=== PATIENT | female | born 1965 | race American Indian/Alaskan Native ===

== ENCOUNTER 2016-08-04 18:22 | Inpatient (IN) | payer MEDICAID ==
[2016-08-04] MEDS ORDERED: Piperacill/Tazo 4.5gm in NS 4.5 GM/100 ML BAG IVPB STA (19:05)
[2016-08-04] MEDS ORDERED: Vancomycin 1gm in NS 250ml 1 GM/250 ML BAG IVPB STA (19:05)
--- NOTE | 2016-08-04 19:05 | ED PDOC ---
Arrival/HPI - General Time Seen by Provider: 08/04/16 18:42 Historian: Patient - History of Present Illness Narrative History of Present Illness (Text): 08/04/16 18:54 A 51 year old female, whose past medical history includes chronic bilateral feet wounds, presents to the emergency department complaining of a subjective fever for the past 5 days. Patient notes a headache and 1 episodes of diarrhea 3 days ago. She states she has some nausea but denies any vomiting, chest pain, shortness of breath, or other complaints at this time. PMD: Dr. Triplett Bulk Clerk: Dr. Helton Time/Duration: Other Symptom Onset: Sudden Symptom Course: Unchanged Quality: Other Activities at Onset: Rest Context: Home Past Medical History - Provider Review Nursing Documentation Reviewed: Yes - Infectious Disease Hx of Infectious Diseases: None - Cardiac Hx Cardiac Disorders: Yes Hx Hypertension: Yes - Pulmonary Hx Respiratory Disorders: No - Neurological Hx Neurological Disorder: Yes HX Cerebrovascular Accident: Yes - HEENT Hx HEENT Disorder: No - Renal Hx Renal Disorder: Yes Other/Comment: Renal insufficiency - Endocrine/Metabolic Hx Endocrine Disorders: Yes Hx Diabetes Mellitus Type 2: Yes - Hematological/Oncological Hx Blood Transfusions: Yes Hx Blood Transfusion Reaction: No - Integumentary Hx Dermatological Disorder: Yes Other/Comment: Cellulitis - Musculoskeletal/Rheumatological Hx Musculoskeletal Disorders: Yes Hx Falls: No Hx Osteomyelitis: Yes Hx Unsteady Gait: Yes (Splint noted to left foot and lower extremity (hardshoe)) - Gastrointestinal Hx Gastrointestinal Disorders: No - Genitourinary/Gynecological Hx Genitourinary Disorders: No - Psychiatric Hx Psychophysiologic Disorder: No Hx Substance Use: No - Surgical History Hx Cholecystectomy: Yes - Anesthesia Hx Anesthesia Reactions: No Hx Malignant Hyperthermia: No Family/Social History - Physician Review Nursing Documentation Reviewed: Yes Family/Social History: Unknown Family HX Smoking Status: Heavy Smoker > 10 Cigarettes Daily Hx Alcohol Use: No Hx Substance Use: No Allergies/Home Meds Allergies/Adverse Reactions: Allergies dominique Allergy (Intermediate, Verified 01/22/16 11:44) RASH peanut Allergy (Unknown, Verified 01/22/16 11:44) RASH acetaminophen [From Vicodin] Allergy (Verified 01/22/16 11:44) RASH almond Allergy (Verified 01/22/16 11:44) ANAPHYLAXIS hydrocodone bitartrate [From Vicodin] Allergy (Verified 01/22/16 11:44) RASH hydromorphone HCl [From Dilaudid] Allergy (Verified 01/22/16 11:44) RASH linezolid Allergy (Verified 01/22/16 11:44) RASH morphine Allergy (Verified 01/22/16 11:44) RASH Penicillins Allergy (Verified 08/04/16 20:21) ANAPHYLAXIS seafood Allergy (Uncoded 01/22/16 11:44) ANAPHYLAXIS Home Medications: Home Meds Medication Instructions Recorded Confirmed ALPRAZolam [Xanax] 2 mg PO PRN PRN 01/21/16 08/04/16 Ascorbic Acid [Vitamin C 500 mg 500 mg PO BID 01/21/16 08/04/16 Tab] Atorvastatin [Lipitor] 10 mg PO DIN 01/21/16 08/04/16 DiphenhydrAMINE [Benadryl] 25 mg PO Q6 PRN 01/21/16 08/04/16 Epoetin Thomas [Procrit] 4,000 unit IJ TTS 01/21/16 08/04/16 Escitalopram [Lexapro] 10 mg PO DAILY 01/21/16 08/04/16 Gabapentin [Neurontin] 300 mg PO TID 01/21/16 08/04/16 Insulin Aspart, Recombinant 3 unit SQ TID 01/21/16 08/04/16 [Novolog] Insulin Detemir [Levemir] 10 unit SC DAILY 01/21/16 08/04/16 Oxycodone HCl [Roxicodone] 15 mg PO Q4 PRN 01/21/16 08/04/16 Rivaroxaban [Xarelto] 15 mg PO DAILY 01/21/16 08/04/16 Senna [Senokot Syrup] 1 tab BID 01/21/16 08/04/16 Simethicone [Mylicon Chew Tab] 80 mg PO BID 01/21/16 08/04/16 Zinc Sulfate [Orazinc] 220 mg PO DAILY 01/21/16 08/04/16 Review of Systems - Physician Review All systems were reviewed & negative as marked: Yes - Review of Systems Constitutional: Fevers Respiratory: absent: SOB Cardiovascular: absent: Chest Pain Neurological: Headache Physical Exam Vital Signs Reviewed: Yes Vital Signs Temp Pulse Resp BP Pulse Ox 08/05/16 21:32 115 H 18 126/71 97 08/05/16 20:12 113 H 18 133/75 99 08/05/16 10:18 153/97 H 08/05/16 06:00 96 H 18 118/62 99 08/05/16 02:00 99.0 F 98 H 18 121/62 100 08/04/16 20:56 107 H 20 106/51 L 99 08/04/16 19:15 99.9 F H 111 H 18 111/58 L 100 08/04/16 18:47 100.8 F H 112 H 20 152/69 H 99 Temperature: Febrile Blood Pressure: Hypertensive Pulse: Tachycardic Respiratory Rate: Normal Appearance: Positive for: Non-Toxic, Comfortable, Ill-Appearing Pain Distress: None Mental Status: Positive for: Alert and Oriented X 3 - Systems Exam Head: Present: Atraumatic, Normocephalic Pupils: Present: PERRL Extroacular Muscles: Present: EOMI Conjunctiva: Present: Normal Mouth: Present: Moist Mucous Membranes Neck: Present: Normal Range of Motion Respiratory/Chest: Present: Clear to Auscultation, Good Air Exchange. No: Respiratory Distress, Accessory Muscle Use Cardiovascular: Present: Regular Rate and Rhythm, Normal S1, S2. No: Murmurs Abdomen: Present: Normal Bowel Sounds. No: Tenderness, Distention, Peritoneal Signs Back: Present: Normal Inspection Upper Extremity: Present: Normal Inspection. No: Cyanosis, Edema Lower Extremity: Present: Normal Inspection. No: Edema Neurological: Present: GCS=15, CN II-XII Intact, Speech Normal Skin: Present: Warm, Dry, Normal Color, Other (wounds to the bilateral heals; irregular 5cm wound on the right heal no erythema or purulent drainage; there is a large wound on the left cover major if left heal so purulent at the base; extensive wound over the left medial lower leg with purulent material ). No: Rashes Psychiatric: Present: Alert, Oriented x 3, Normal Insight, Normal Concentration Medical Decision Making ED Course and Treatment: EKG: Ordered, reviewed, and independently interpreted the EKG. Rate : 110 BPM Rhythm : sinus tachycardia Interpretation : Normal axis, no acute ischemia - Lab Interpretations Microbiology Results: Microbiology Results 08/04/16 20:00 Blood Blood Culture - Final NO GROWTH AFTER 5 DAYS 08/04/16 20:00 Blood Gram Stain - Final TEST NOT PERFORMED 08/04/16 20:00 Blood Blood Culture - Final NO GROWTH AFTER 5 DAYS 08/04/16 20:00 Blood Gram Stain - Final TEST NOT PERFORMED 08/04/16 07:25 Foot - Left Gram Stain - Final 08/04/16 07:25 Foot - Left Wound Culture - Final No growth. Lab Results: 08/04/16 20:00 08/04/16 20:00 Lab Results 08/04/16 20:00: Hemoglobin A1c 8.7 H 08/04/16 20:00: Sodium 130 L, Chloride 104, Potassium 3.2 L, Carbon Dioxide 15 L , Anion Gap 14, BUN 40 H, Creatinine 3.4 H, Est GFR ( Amer) 17, Est GFR ( Non-Af Amer) 14, Random Glucose 284 H, Calcium 8.6, Phosphorus 3.8, Magnesium 1.5 L, Total Bilirubin 0.5, AST 13 L, ALT 18, Alkaline Phosphatase 182 H, Total Protein 6.6, Albumin 2.9 L, Globulin 3.7, Albumin/Globulin Ratio 0.8 L 08/04/16 20:00: pO2 46, VBG pH 7.21 L, VBG pCO2 40.0, VBG HCO3 16.0 L, VBG Total CO2 17.2 L, VBG O2 Sat (Calc) 83.8 H, VBG Base Excess -11.3 L, VBG Potassium 3.3 L, Sodium 131.0 L, Chloride 106.0, Glucose 304 H, Lactate 1.0, FiO2 21.0, Venous Blood Potassium 3.3 L 08/04/16 20:00: PT 11.7, INR 1.08, APTT 40.4 H 08/04/16 20:00: WBC 20.5 H D, RBC 3.48 L, Hgb 9.4 L, Hct 29.2 L, MCV 83.9, MCH 27.0, MCHC 32.2, RDW 15.4 H, Plt Count 211, MPV 9.9, Gran % 89.4 H, Lymph % ( Auto) 3.8 L, Whitley % (Auto) 6.7 H, Eos % (Auto) 0.1 L, Baso % (Auto) 0.0, Gran # 18.34 H, Lymph # 0.8 L, Whitley # 1.4 H, Eos # 0.0, Baso # 0.01 I have reviewed the lab results: Yes - RAD Interpretation Radiology Orders: 08/04/16 19:05 CHEST PORTABLE [RAD] Stat 08/04/16 19:47 FOOT LEFT 3 VIEWS ROUTINE [RAD] Stat FOOT RIGHT 3 VIEWS ROUTINE [RAD] Stat TIBIA FIBULA LEFT [RAD] Stat - Medication Orders Current Medication Orders: Alprazolam (Xanax) 0.5 mg PO QID PRN; Protocol PRN Reason: Anxiety Last Admin: 08/10/16 10:27 Dose: 0.5 mg Re-Assess: Reassess Psych Meds Document 08/10/16 11:27 RKO (Rec: 08/10/16 13:50 RKO [id number]) Reassess Psych Med Effective Amlodipine Besylate (Norvasc) 10 mg PO DAILY [facility] Last Admin: 08/12/16 11:41 Dose: Not Given Non-Admin Reason: Patient in Cardiology Ascorbic Acid (Vitamin C 500 Mg Tab) 500 mg PO BID [facility] Last Admin: 08/12/16 17:00 Dose: 500 mg Calcium Acetate (Phoslo) 667 mg PO WM [facility] Last Admin: 08/12/16 16:34 Dose: 667 mg Docusate Sodium (Colace) 100 mg PO BID [facility] Last Admin: 08/12/16 17:00 Dose: 100 mg Famotidine (Pepcid) 40 mg PO HS [facility] Last Admin: 08/11/16 22:42 Dose: 40 mg Heparin Sodium (Porcine) (Heparin) 5,000 units SC Q12 MAGALY PRN Reason: Protocol Last Admin: 08/12/16 11:38 Dose: Not Given Non-Admin Reason: Patient in Cardiology Sodium Bicarbonate 75 meq/ (Sodium Chloride) 1,075 mls @ 80 mls/hr IV .[id number] [facility] Last Admin: 08/12/16 16:35 Dose: 80 mls/hr Meropenem 500 mg/ Sodium (Chloride) 100 mls @ 100 mls/hr IVPB DAILY [facility] PRN Reason: Protocol Stop: 08/15/16 10:01 Last Admin: 08/12/16 09:20 Dose: 100 mls/hr Insulin Detemir (Levemir) 10 unit SC DAILY [facility] Last Admin: 08/12/16 11:40 Dose: Not Given Non-Admin Reason: Patient in Cardiology Insulin Human Regular (Humulin R High) 0 units SC ACHS MAGALY PRN Reason: Protocol Last Admin: 08/12/16 16:36 Dose: 4 units Oxycodone HCl (Oxycodone Immediate Release Tab) 15 mg PO Q6 PRN PRN Reason: Pain, moderate (4-7) Last Admin: 08/12/16 06:14 Dose: 15 mg Re-Assess: GRETCHEN Pain Assessment Document 08/12/16 07:14 HD (Rec: 08/12/16 07:15 HD [id number]) Pain Reassessment Is this a pain reassessment? Yes Sleep Is patient sleeping during reassessment? No Presence of Pain Presence of Pain No Polyethylene Glycol (Miralax) 17 gm PO DAILY [facility] Last Admin: 08/12/16 11:41 Dose: Not Given Non-Admin Reason: Patient in Cardiology Polysaccharide Iron Complex (Ferrex-150) 150 mg PO DAILY [facility] Last Admin: 08/12/16 11:38 Dose: Not Given Non-Admin Reason: NPO Trazodone HCl (Desyrel) 25 mg PO HS PRN PRN Reason: Insomnia Zinc Sulfate (Zinc Sulfate 220 Mg Cap) 220 mg PO DAILY [facility] Last Admin: 08/12/16 11:42 Dose: Not Given Non-Admin Reason: Patient in Cardiology Discontinued Medications Acetaminophen (Tylenol 325mg Tab) 650 mg PO Q4H PRN PRN Reason: Fever >100.4 F Alprazolam (Xanax) 2 mg PO PRN PRN; Protocol PRN Reason: Anxiety Alprazolam (Xanax) 2 mg PO DAILY PRN; Protocol PRN Reason: Anxiety Last Admin: 08/08/16 03:22 Dose: 2 mg Aminophylline (Aminophylline 25 Mg/Ml Inj) Confirm Administered Dose 250 mg .ROUTE .STK-MED ONE Stop: 08/12/16 09:21 Last Admin: 08/12/16 11:38 Dose: Ascorbic Acid (Vitamin C 500 Mg Tab) Confirm Administered Dose 500 mg .ROUTE .STK-MED ONE Stop: 08/08/16 10:56 Last Admin: 08/08/16 11:24 Dose: Calcium Acetate (Phoslo) Confirm Administered Dose 667 mg .ROUTE .STK-MED ONE Stop: 08/08/16 12:55 Last Admin: 08/08/16 13:07 Dose: Calcium Acetate (Phoslo) Confirm Administered Dose 667 mg .ROUTE .STK-MED ONE Stop: 08/08/16 12:55 Last Admin: 08/08/16 13:07 Dose: Clonidine HCl (Catapres) 0.2 mg PO STAT STA Stop: 08/12/16 00:16 Last Admin: 08/12/16 00:37 Dose: 0.2 mg Darbepoetin Thomas (Aranesp) 60 mcg SC ONCE ONE Stop: 08/07/16 10:01 Last Admin: 08/07/16 12:44 Dose: 60 mcg Heparin Sodium (Porcine) (Heparin) Confirm Administered Dose 5,000 units .ROUTE .STK-MED ONE Stop: 08/08/16 10:55 Last Admin: 08/08/16 11:23 Dose: Sodium Chloride 2,000 ml/ IV (SUPPLIES) 2,000 mls @ 5,688.06 mls/hr IV ONCE ONE PRN Reason: 60 ML/KG/HR Stop: 08/04/16 19:06 Last Admin: 08/04/16 20:32 Dose: 5,688.06 mls/hr Vancomycin HCl (Vancomycin 1gm) 1 gm in 250 mls @ 167 mls/hr IVPB STAT STA PRN Reason: Protocol Stop: 08/04/16 20:34 Last Admin: 08/04/16 22:35 Dose: Meropenem 1g/NS 100mL IVPB (Meropenem 1g/Ns 100ml Ivpb) 1 gm in 100 mls @ 100 mls/hr IVPB STAT STA PRN Reason: Protocol Stop: 08/04/16 21:28 Last Admin: 08/04/16 20:37 Dose: 100 mls/hr Sodium Chloride (Sodium Chloride 0.9%) 1,000 mls @ 999 mls/hr IV .Q1H1M STA Stop: 08/04/16 22:05 Last Admin: 08/04/16 21:25 Dose: 999 mls/hr Linezolid (Zyvox 600mg/300ml D5w) 600 mg in 300 mls @ 200 mls/hr IVPB Q12 MAGALY PRN Reason: Protocol Stop: 08/04/16 23:59 Last Admin: 08/05/16 00:32 Dose: 200 mls/hr Sodium Bicarbonate 75 meq/ (Sodium Chloride) 1,075 mls @ 100 mls/hr IV .[id number] [facility] Last Admin: 08/05/16 00:32 Dose: 100 mls/hr Magnesium Sulfate 2 gm/ Sodium (Chloride) 104 mls @ 102 mls/hr IVPB ONCE ONE Stop: 08/05/16 02:40 Last Admin: 08/05/16 07:13 Dose: 102 mls/hr Meropenem 500 mg/ Sodium (Chloride) 100 mls @ 100 mls/hr IVPB Q12 MAGALY PRN Reason: Protocol Stop: 08/13/16 10:01 Last Admin: 08/06/16 22:41 Dose: 100 mls/hr Daptomycin 570 mg/ Sodium (Chloride) 100 mls @ 200 mls/hr IV Q48H [facility] Stop: 08/10/16 10:01 Last Admin: 08/09/16 10:12 Dose: 200 mls/hr Heparin Sodium (Porcine) (Heparin 1000 Units/500 Ml Ns) Confirm Administered Dose 500 mls @ ud IV .STK-MED ONE Stop: 08/05/16 14:54 Sodium Bicarbonate 50 meq/ (Sodium Chloride) 1,050 mls @ 80 mls/hr IV .[id number] [facility] Sodium Bicarbonate 75 meq/ (Sodium Chloride) 1,075 mls @ 100 mls/hr IV .[id number] [facility] Sodium Chloride (Sodium Chloride 0.9%) 1,000 mls @ 999 mls/hr IV .Q1H1M [facility] Last Admin: 08/06/16 06:18 Dose: 999 mls/hr Amikacin Sulfate 500 mg/ (Dextrose) 102 mls @ 204 mls/hr IVPB ONCE ONE PRN Reason: Protocol Stop: 08/06/16 08:44 Last Admin: 08/06/16 10:32 Dose: 204 mls/hr Daptomycin 570 mg/ Sodium (Chloride) 100 mls @ 200 mls/hr IV STAT STA PRN Reason: Protocol Stop: 08/12/16 16:56 Last Admin: 08/12/16 16:34 Dose: 200 mls/hr Insulin Detemir (Levemir) Confirm Administered Dose 10 unit SC .STK-MED ONE Stop: 08/08/16 10:56 Last Admin: 08/08/16 11:43 Dose: Insulin Human Regular (Humulin R) Confirm Administered Dose 7 units .ROUTE .STK- MED ONE Stop: 08/05/16 09:44 Last Admin: 08/05/16 09:49 Dose: 7 units Insulin Human Regular (Humulin R) Confirm Administered Dose 7 units .ROUTE .STK- MED ONE Stop: 08/05/16 14:23 Last Admin: 08/05/16 14:43 Dose: Insulin Human Regular (Humulin R High) Confirm Administered Dose 2 units .ROUTE .STK-MED ONE Stop: 08/08/16 12:55 Last Admin: 08/08/16 13:06 Dose: Lactulose (Enulose) 10 gm PO ONCE ONE Stop: 08/12/16 08:28 Last Admin: 08/12/16 08:43 Dose: 10 gm Lidocaine HCl (Lidocaine 2% 20ml Vial) Confirm Administered Dose 20 ml .ROUTE .STK-MED ONE Stop: 08/05/16 14:54 Oxycodone HCl (Oxycodone Immediate Release Tab) 15 mg PO STAT STA Stop: 08/04/16 19:48 Last Admin: 08/04/16 20:33 Dose: 15 mg Oxycodone HCl (Oxycodone Immediate Release Tab) 15 mg PO STAT STA Stop: 08/04/16 20:30 Last Admin: 08/04/16 20:37 Dose: 15 mg Oxycodone HCl (Oxycodone Immediate Release Tab) 15 mg PO Q4 PRN PRN Reason: Pain, Mild (1-3) Oxycodone HCl (Oxycodone Immediate Release Tab) 30 mg PO Q6 PRN PRN Reason: Pain, moderate (4-7) Last Admin: 08/06/16 00:36 Dose: 30 mg Re-Assess: [facility] Pain Assessment Document 08/06/16 01:36 SSE (Rec: 08/06/16 04:49 SSE [id number]) Pain Reassessment Is this a pain reassessment? Yes Sleep Is patient sleeping during reassessment? No Presence of Pain Presence of Pain No Polysaccharide Iron Complex (Ferrex-150) Confirm Administered Dose 150 mg .ROUTE .STK-MED ONE Stop: 08/08/16 10:57 Last Admin: 08/08/16 11:23 Dose: Potassium Chloride (K-Dur 20 Meq Er Tab) 40 meq PO STAT STA Stop: 08/04/16 22:45 Last Admin: 08/05/16 00:34 Dose: 40 meq Regadenoson (Lexiscan) Confirm Administered Dose 0.4 mg IVP .STK-MED ONE Stop: 08/12/16 09:21 Last Admin: 08/12/16 11:41 Dose: Zinc Sulfate (Zinc Sulfate 220 Mg Cap) Confirm Administered Dose 220 mg .ROUTE .STK-MED ONE Stop: 08/08/16 10:57 Last Admin: 08/08/16 11:24 Dose: - Scribe Statement The provider has reviewed the documentation as recorded by the Joanna Castorena Provider Scribe Attestation: All medical record entries made by the Joanna were at my direction and personally dictated by me. I have reviewed the chart and agree that the record accurately reflects my personal performance of the history, physical exam, medical decision making, and the department course for this patient. I have also personally directed, reviewed, and agree with the discharge instructions and disposition. Disposition/Present on Arrival - Present on Arrival Any Indicators Present on Arrival: No History of DVT/PE: No History of Uncontrolled Diabetes: No Urinary Catheter: No History Surgical Site Infection Following: None - Disposition Have Diagnosis and Disposition been Completed?: Yes Diagnosis: Osteomyelitis, Cellulitis of foot, Wound, open, foot, Sepsis Disposition: HOSPITALIZED Disposition Time: 21:16 Condition: GUARDED
[2016-08-04 19:06] VITALS: BMI 33.7
[2016-08-04] MEDS ORDERED: oxyCODONE 15 mg Immediate Release Tab PO STA ×2 (19:47→20:29)
[2016-08-04 20:23] LABS: ADD MANUAL DIFF? NO
[2016-08-04 20:28] LABS: BASO # 0.01 K/mm3 (0.0-2.0); EOS % 0.1 % (1.5-5.0); GRAN # 18.34 (1.4-6.5); GRAN % 89.4 % (50.0-68.0); HEMATOCRIT 29.2 % (36.0-48.0); LYMPH # 0.8 (1.2-3.4); LYMPH % 3.8 % (22.0-35.0); MEAN CELL VOLUME 83.9 fL (80.0-105.0); MEAN CORPUSCULAR HGB CONC 32.2 g/dl (31.0-37.0); MEAN PLATELET VOLUME 9.9 fl (7.0-11.0); MONO # 1.4 (0.1-0.6); MONO % 6.7 % (1.0-6.0); PLATELET COUNT 211 10^3/uL (120.0-450.0); RED CELL DISTRIBUTION WIDTH 15.4 % (11.5-14.5); WHITE BLOOD COUNT 20.5 10^3/ul (4.5-11.0)
[2016-08-04 20:29] LABS: VENOUS BLOOD GAS BASE EXCESS -11.3 mmol/L (0.0-2.0); VENOUS BLOOD PH 7.21 (7.32-7.43)
[2016-08-04] MEDS ORDERED: Meropenem 1g/NS 100mL IVPB 1 GM/100 ML PIGGYBACK IVPB STA (20:29)
[2016-08-04 20:56] LABS: ALB/GLOB RATIO 0.8 (1.1-1.8); BILIRUBIN,TOTAL 0.5 mg/dL (0.2-1.3); CALCIUM 8.6 mg/dL (8.4-10.5); MAGNESIUM 1.5 mg/dL (1.7-2.2); PHOSPHOROUS 3.8 mg/dL (2.5-4.5); POTASSIUM 3.2 mmol/L (3.6-5.0); TOTAL PROTEIN 6.6 g/dL (5.8-8.3)
[2016-08-04 21:00] LABS: INR 1.08 (0.93-1.08); PARTIAL THROMBOPLASTIN TIME 40.4 Seconds (23.7-30.8)
[2016-08-04] MEDS ORDERED: Sodium Chloride 0.9% 1,000 ML IV STA (21:05)
[2016-08-04] MEDS ORDERED: oxyCODONE 15 mg Immediate Release Tab PO PRN (22:26)
[2016-08-04] MEDS ORDERED: Linezolid 600 mg in D5W 300 ml 600 MG/300 ML BAG IVPB SCH (22:30)
[2016-08-04] MEDS ORDERED: Potassium Chloride 20 mEq ER Tab PO STA ×2 (22:44→22:45)
[2016-08-04 23:53] LABS: VENOUS BLOOD GAS BASE EXCESS -13.4 mmol/L (0.0-2.0)
[2016-08-05 00:11] LABS: URINE BILIRUBIN NEGATIVE (NEGATIVE); URINE BLOOD MODERATE (NEGATIVE); URINE GLUCOSE (UA) 250 mg/dL (NEGATIVE); URINE KETONE NEGATIVE (NEGATIVE); URINE LEUKOCYTE ESTERASE MODERATE Leu/uL (NEGATIVE); URINE PROTEIN >=300 mg/dL (<30 mg/dL); URINE UROBILINOGEN 0.2 E.U./dL (<1 E.U./dL)
[2016-08-05 00:14] LABS: URINE APPEARANCE SL CLOUDY (CLEAR); URINE COLOR YELLOW (YELLOW)
[2016-08-05 00:30] LABS: URINE WBC TNTC /hpf (0-6)
[2016-08-05 00:31] LABS: URINE BACTERIA SMALL (NEG)
--- NOTE | 2016-08-05 01:10 | CP.PCM.HP ---
<Jim Chaney - Last Filed: 08/05/16 01:42> History of Present Illness - History of Present Illness History of Present Illness: cc: fever HPI: Patient is a 51 yo female with past medical hsitory of CVA, DM type 2, hypertension, atrial fibrillation, osteomyelitis and HCV, who presented c/o subjective fevers that started 5 days prior to presentation. Patient reported that her fevers have been associated with headache, chills and one episode of diarrhea that occurred 3 days prior. 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 Helton on a regular basis for chronic bilateral feet wounds and undergoes hyperbaric wound care five times per week. She stated that she has a history of osteomyelitis for which she completed a course of IV antibiotics. She reports that she didn't measure her temperature at home and had not taken any medication to alleviate her subjective fevers. She denied chest pain, palpitations, SOB, abdominal pain, nausea, vomiting, cough. 12point ROS as per HPI above, otherwise negative PMH: CVA, DM type 2, hypertension, atrial fibrillation, osteomyelitis and HCV PSH: Podiatric surgeries Family Hx: Noncontributory Allergies: Penicillin (anaphylaxis), dilaudid (rash), linezolid (rash) Social Hx: history of tobacco use ~1/2-1ppd for over 20 years, denies alcohol and illicit drug use; Lives with her daughter; Has 10 children PMD: Dr. Terence Villarreal [employer] Shift Lead: Dr. Helton Present on Admission - Present on Admission Any Indicators Present on Admission: Yes History of DVT/PE: Yes Past Patient History - Infectious Disease Hx of Infectious Diseases: None - Past Social History Smoking Status: Heavy Smoker > 10 Cigarettes Daily - CARDIAC Hx Cardiac Disorders: Yes Hx Hypertension: Yes - PULMONARY Hx Respiratory Disorders: No - NEUROLOGICAL Hx Neurological Disorder: Yes HX Cerebrovascular Accident: Yes - HEENT Hx HEENT Problems: No - RENAL Hx Chronic Kidney Disease: Yes Other/Comment: Renal insufficiency - ENDOCRINE/METABOLIC Hx Endocrine Disorders: Yes Hx Diabetes Mellitus Type 2: Yes - HEMATOLOGICAL/ONCOLOGICAL Hx Blood Transfusions: Yes Hx Blood Transfusion Reaction: No - INTEGUMENTARY Hx Dermatological Problems: Yes Other/Comment: Cellulitis - MUSCULOSKELETAL/RHEUMATOLOGICAL Hx Musculoskeletal Disorders: Yes Hx Falls: No Hx Osteomyelitis: Yes Hx Unsteady Gait: Yes (Splint noted to left foot and lower extremity (hardshoe)) - GASTROINTESTINAL Hx Gastrointestinal Disorders: No - GENITOURINARY/GYNECOLOGICAL Hx Genitourinary Disorders: No - PSYCHIATRIC Hx Psychophysiologic Disorder: No Hx Substance Use: No - SURGICAL HISTORY Hx Cholecystectomy: Yes - ANESTHESIA Hx Anesthesia Reactions: No Hx Malignant Hyperthermia: No Meds Allergies/Adverse Reactions: Allergies Allergy/AdvReac Type Severity Reaction Status Date / Time dominique Allergy Intermediate RASH Verified 01/22/16 11:44 peanut Allergy Unknown RASH Verified 01/22/16 11:44 acetaminophen [From Vicodin] Allergy RASH Verified 01/22/16 11:44 almond Allergy ANAPHYLAXIS Verified 01/22/16 11:44 hydrocodone bitartrate Allergy RASH Verified 01/22/16 11:44 [From Vicodin] hydromorphone HCl Allergy RASH Verified 01/22/16 11:44 [From Dilaudid] linezolid Allergy RASH Verified 01/22/16 11:44 morphine Allergy RASH Verified 01/22/16 11:44 Penicillins Allergy ANAPHYLAXIS Verified 08/04/16 20:21 seafood Allergy ANAPHYLAXIS Uncoded 01/22/16 11:44 Physical Exam - Constitutional Appears: Unkempt, Older Than Stated Age, Chronically Ill - Head Exam Head Exam: ATRAUMATIC, NORMAL INSPECTION, NORMOCEPHALIC - Eye Exam Eye Exam: EOMI, PERRL - Neck Exam Neck exam: Positive for: Normal Inspection. Negative for: Lymphadenopathy, Tenderness, Thyromegaly - Respiratory Exam Respiratory Exam: Clear to Auscultation Bilateral. absent: Rales, Rhonchi, Wheezes - Cardiovascular Exam Cardiovascular Exam: Tachycardia, +S1, +S2. absent: Diastolic murmur, Gallop, JVD, Rubs, Systolic Murmur - GI/Abdominal Exam GI & Abdominal Exam: Normal Bowel Sounds, Soft. absent: Distended, Firm, Guarding, Rebound, Rigid, Tenderness - Extremities Exam Extremities exam: Positive for: tenderness, pedal pulses present Additional comments: left medial leg extensive wound measuring approx 30cm in length with visible muscle layer, no purulent drainage left heel wound with purulent material measuring approx 6cm in diameter right heel wound with no erythema or purulent drainage measuring approx 4cm in diameter - Neurological Exam Neurological exam: Alert, CN II-XII Intact, Oriented x3 - Psychiatric Exam Psychiatric exam: Anxious - Skin Skin Exam: Normal Color, Warm Results - Vital Signs Recent Vital Signs: Last Vital Signs Temp 99.9 F H 08/04/16 19:15 Pulse 107 H 08/04/16 20:56 Resp 20 08/04/16 20:56 BP 106/51 L 08/04/16 20:56 Pulse Ox 99 08/04/16 20:56 - Labs Result Diagrams: 08/04/16 20:00 08/04/16 20:00 Labs: Laboratory Results - last 24 hr 08/04/16 08/04/16 08/04/16 21:18 23:30 23:50 pO2 212 H VBG pH 7.20 L VBG pCO2 35.0 L VBG HCO3 13.7 L VBG Total CO2 14.8 L VBG O2 Sat (Calc) 99.3 H VBG Base Excess -13.4 L VBG Potassium 3.0 L Sodium 133.0 Chloride 111.0 H Glucose 275 H Lactate 0.7 FiO2 21.0 Serum Osmolality 292 Venous Blood Potassium 3.0 L Urine Color Yellow Urine Appearance Sl cloudy Urine pH 6.0 Ur Specific [place] 1.020 Urine Protein >=300 H Urine Glucose (UA) 250 H Urine Ketones Negative Urine Blood Moderate H Urine Nitrate Negative Urine Bilirubin Negative Urine Urobilinogen 0.2 Ur Leukocyte Esterase Moderate H Urine RBC 5 - 10 Urine WBC Tntc Ur Epithelial Cells 1 - 3 Urine Bacteria Small Urine Other Uyeast Urine Osmolality Ur Random Creatinine Ur Random Sodium 08/04/16 23:50 pO2 VBG pH VBG pCO2 VBG HCO3 VBG Total CO2 VBG O2 Sat (Calc) VBG Base Excess VBG Potassium Sodium Chloride Glucose Lactate FiO2 Serum Osmolality Venous Blood Potassium Urine Color Urine Appearance Urine pH Ur Specific [place] Urine Protein Urine Glucose (UA) Urine Ketones Urine Blood Urine Nitrate Urine Bilirubin Urine Urobilinogen Ur Leukocyte Esterase Urine RBC Urine WBC Ur Epithelial Cells Urine Bacteria Urine Other Urine Osmolality 305 Ur Random Creatinine 110 Ur Random Sodium 29 Assessment & Plan - Assessment and Plan (Free Text) Plan: 51 yo female with past medical history of CVA, DM type 2, hypertension, atrial fibrillation, osteomyelitis and HCV admitted for sepsis secondary to osteomyelitis 1. Sepsis secondary to osteomyelitis -Patient started on meropenem and linezolid -s/p 3L bolus of normal saline in the ED -Continue with 1/2 normal saline with 75meq of sodium bicarb at 100cc/hr -Bilateral feet xrays pending -MRI of bilateral feet pending -Pain control with oxycodone 15mg PO q4h -Blood culture, urine culture, wound culture pending -Procalcitonin pending -Echocardiogram pending -CXR revealed no active disease -EKG reviewed -ID consulted - Dr. Barlow -Podiatry consulted - Dr. Helton 2. Acute on chronic kidney disease -IVF hydration -Sodium bicarb repletion -Pending urine creatinine, urine sodium, urine eosinophils -Avoid nephrotoxic agents -Renal diet -Nephrology consulted - Dr. Winslow 3. Diabetes type 2 -Humulin low dose ISS -Fingersticks ACHS -Hgb A1c pending -Renal/Consistent carb diet 4. Hypertension -Antihypertensives held due to normotension in the ED in the setting of sepsis 5. HCV -HCV viral RNA qualitative pending 6. Hyponatremia -Workup pending: Serum/Urine osmolality, urine creatinine, urine sodium 7. Hypomagnesemia -Monitor and replete as needed 8. DVT prophylaxis -Heparin 5000u SC BID Patient seen and case discussed with attending, Dr. Botello - Date & Time Date: 08/05/16 Time: 01:28 <Shamir Botello P - Last Filed: 08/16/16 22:54> Results - Vital Signs Recent Vital Signs: Last Vital Signs Temp 98.8 F 08/15/16 00:09 Pulse 97 H 08/15/16 01:51 Resp 19 08/15/16 00:09 BP 179/93 H 08/15/16 01:25 Pulse Ox 93 L 08/15/16 00:09 - Labs Result Diagrams: 08/14/16 06:10 08/14/16 06:10 Attending/Attestation - Attestation I have personally seen and examined this patient.: Yes I have fully participated in the care of the patient.: Yes I have reviewed all pertinent clinical information: Yes
[2016-08-05] MEDS ORDERED: Magnesium Sulfate 2 GM in Sodium Chloride 0.9% 100 ML IVPB ONE (01:39)
[2016-08-05] MEDS ORDERED: Insulin Reg-LOW-Coverage SC SCH (07:30)
--- NOTE | 2016-08-05 07:32 | RAD ---
HISTORY: Sepsis Patient COMPARISON: Comparison made with prior chest radiograph 07/09/2016 FINDINGS: LUNGS: Poor inspiration with low lung volumes, mild crowded bronchovascular markings and mild bibasilar atelectasis. PLEURA: No significant pleural effusion identified, no pneumothorax apparent. CARDIOVASCULAR: Heart size is upper limits of normal/borderline enlarged. OSSEOUS STRUCTURES: No significant abnormalities. VISUALIZED UPPER ABDOMEN: Normal. OTHER FINDINGS: None. IMPRESSION: Poor inspiration with low lung volumes, mild crowded bronchovascular markings and mild bibasilar atelectasis.
[2016-08-05 08:02] LABS: RETIC% 1.19 % (0.5-1.5)
[2016-08-05 08:11] LABS: ALB/GLOB RATIO 0.7 (1.1-1.8); BILIRUBIN,TOTAL 0.4 mg/dL (0.2-1.3); MAGNESIUM 1.6 mg/dL (1.7-2.2); POTASSIUM 3.7 mmol/L (3.6-5.0); TOTAL PROTEIN 6.3 g/dL (5.8-8.3)
[2016-08-05 08:19] LABS: IRON 12 ug/dL (45-180)
--- NOTE | 2016-08-05 08:43 | RAD ---
PROCEDURE: Left Foot Radiographs. HISTORY: wound COMPARISON: None. FINDINGS: BONES: No acute fracture. There is extensive sclerosis of the calcaneus. There is fine periosteal reaction seen about the sclerotic calcaneus. Findings are suspicious for osteomyelitis. JOINTS: Pes planus deformity. Flexion deformity 2nd through 5th digits. SOFT TISSUES: Large soft tissue ulceration/ wound beneath the left calcaneus. Vascular calcifications are noted. Generalized soft tissue swelling about the dorsal and plantar aspect of the foot. OTHER FINDINGS: None. IMPRESSION: Findings concerning for osteomyelitis of the calcaneus with large soft tissue ulcerations/wound over the plantar aspect of the calcaneus. Generalized soft tissue swelling.
[2016-08-05 08:51] LABS: ADD MANUAL DIFF? NO
--- NOTE | 2016-08-05 08:52 | RAD ---
PROCEDURE: Right Foot Radiographs. HISTORY: wound COMPARISON: 12/08/2015 FINDINGS: BONES: Normal. No fracture. JOINTS: Flexion deformity 2nd through 5th digits. No evidence arthritis. SOFT TISSUES: Large soft tissue ulceration over dorsal aspect of calcaneus. No underlying osseous erosion or periosteal reaction. OTHER FINDINGS: None. IMPRESSION: Dorsal calcaneal soft tissue ulceration. No plain radiographic evidence of osteomyelitis.
--- NOTE | 2016-08-05 08:54 | RAD ---
PROCEDURE: Radiographs of the left tibia and fibula. HISTORY: wound COMPARISON: None available. TECHNIQUE: Frontal and lateral views obtained. FINDINGS: BONES: No fracture or destructive lesion. JOINT SPACES: Unremarkable. OTHER FINDINGS: Large soft tissue ulceration/defect over medial aspect mid tibia. IMPRESSION: Large soft tissue defect medial aspect of the mid tibia. No osseous changes.
[2016-08-05] MEDS ORDERED: Insulin Regular 1 UNITS/0.01 ML ML ONE ×2 (09:43→14:22)
[2016-08-05] MEDS ORDERED: Meropenem 1g/NS 100mL IVPB 1 GM/100 ML PIGGYBACK IVPB SCH (10:00)
[2016-08-05] MEDS ORDERED: DAPTOmycin 500 mg Inj (Cubicin) IV SCH (10:00)
[2016-08-05 10:03] LABS: BASO # 0.02 K/mm3 (0.0-2.0); BASO % 0.1 % (0.0-3.0); EOS % 0.2 % (1.5-5.0); GRAN # 17.79 (1.4-6.5); GRAN % 85.6 % (50.0-68.0); HEMATOCRIT 28.7 % (36.0-48.0); LYMPH # 1.1 (1.2-3.4); LYMPH % 5.2 % (22.0-35.0); MEAN CELL VOLUME 85.2 fL (80.0-105.0); MEAN CORPUSCULAR HGB CONC 31.7 g/dl (31.0-37.0); MEAN PLATELET VOLUME 10.5 fl (7.0-11.0); MONO # 1.9 (0.1-0.6); MONO % 8.9 % (1.0-6.0); PLATELET COUNT 209 10^3/uL (120.0-450.0); RED CELL DISTRIBUTION WIDTH 15.6 % (11.5-14.5); WHITE BLOOD COUNT 20.8 10^3/ul (4.5-11.0)
[2016-08-05 10:05] LABS: ERYTHROCYTE SEDIMENTATION RATE 74 mm/hr (0.0-20.0)
[2016-08-05] MEDS: Meropenem 500 MG in Sodium Chloride 0.9% 100 ML IVPB SCH (10:49)
[2016-08-05] MEDS: Insulin Detemir 100 units/ml Vial (Levemir) SC SCH (11:11)
--- NOTE | 2016-08-05 13:53 | CP.PCM.CON ---
<Harper Dee - Last Filed: 08/05/16 13:50> History of Present Illness - History of Present Illness History of Present Illness: Patient is a 51 yo female with past medical hsitory of CVA, DM type 2, hypertension, atrial fibrillation, osteomyelitis and HCV, who presented to the ED complaining of fevers that started 5 days prior to presentation. Patient reported that her fevers have been associated with headache, chills and one episode of diarrhea that occurred 3 days prior. 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 Helton regularly and does hyberaric oxygen therapy 5x a week. patient denies any pain to her lower extremities. She denies chest pain , nausea, dizziness. PMH: CVA, DM type 2, hypertension, atrial fibrillation, osteomyelitis and HCV PSH: Podiatric surgeries Family Hx: Noncontributory Allergies: Penicillin (anaphylaxis), dilaudid (rash), linezolid (rash) Social Hx: history of tobacco use ~1/2-1ppd for over 20 years, denies alcohol and illicit drug use; Lives with her daughter; Has 10 children PMD: Dr. Terence Villarreal [employer] Analysis: Dr. Helton Review of Systems - Constitutional Constitutional: As Per HPI Past Patient History - Infectious Disease Hx of Infectious Diseases: None - Past Social History Smoking Status: Heavy Smoker > 10 Cigarettes Daily - CARDIAC Hx Cardiac Disorders: Yes Hx Hypertension: Yes - PULMONARY Hx Respiratory Disorders: No - NEUROLOGICAL Hx Neurological Disorder: Yes HX Cerebrovascular Accident: Yes - HEENT Hx HEENT Problems: No - RENAL Hx Chronic Kidney Disease: Yes Other/Comment: Renal insufficiency - ENDOCRINE/METABOLIC Hx Endocrine Disorders: Yes Hx Diabetes Mellitus Type 2: Yes - HEMATOLOGICAL/ONCOLOGICAL Hx Blood Transfusions: Yes Hx Blood Transfusion Reaction: No - INTEGUMENTARY Hx Dermatological Problems: Yes Other/Comment: Cellulitis - MUSCULOSKELETAL/RHEUMATOLOGICAL Hx Musculoskeletal Disorders: Yes Hx Falls: No Hx Osteomyelitis: Yes Hx Unsteady Gait: Yes (Splint noted to left foot and lower extremity (hardshoe)) - GASTROINTESTINAL Hx Gastrointestinal Disorders: No - GENITOURINARY/GYNECOLOGICAL Hx Genitourinary Disorders: No - PSYCHIATRIC Hx Psychophysiologic Disorder: No Hx Substance Use: No - SURGICAL HISTORY Hx Cholecystectomy: Yes - ANESTHESIA Hx Anesthesia Reactions: No Hx Malignant Hyperthermia: No Meds Allergies/Adverse Reactions: Allergies Allergy/AdvReac Type Severity Reaction Status Date / Time dominique Allergy Intermediate RASH Verified 01/22/16 11:44 peanut Allergy Unknown RASH Verified 01/22/16 11:44 acetaminophen [From Vicodin] Allergy RASH Verified 01/22/16 11:44 almond Allergy ANAPHYLAXIS Verified 01/22/16 11:44 hydrocodone bitartrate Allergy RASH Verified 01/22/16 11:44 [From Vicodin] hydromorphone HCl Allergy RASH Verified 01/22/16 11:44 [From Dilaudid] linezolid Allergy RASH Verified 01/22/16 11:44 morphine Allergy RASH Verified 01/22/16 11:44 Penicillins Allergy ANAPHYLAXIS Verified 08/04/16 20:21 seafood Allergy ANAPHYLAXIS Uncoded 01/22/16 11:44 - Medications Medications: Current Medications Alprazolam (Xanax) 2 mg PO DAILY PRN; Protocol PRN Reason: Anxiety Ascorbic Acid (Vitamin C 500 Mg Tab) 500 mg PO BID [facility] Last Admin: 08/05/16 11:11 Dose: 500 mg Meropenem 500 mg/ Sodium (Chloride) 100 mls @ 100 mls/hr IVPB Q12 [facility] PRN Reason: Protocol Stop: 08/13/16 10:01 Last Admin: 08/05/16 10:49 Dose: 100 mls/hr Daptomycin 570 mg/ Sodium (Chloride) 100 mls @ 200 mls/hr IV Q48H [facility] Stop: 08/10/16 10:01 Last Admin: 08/05/16 11:53 Dose: 200 mls/hr Sodium Bicarbonate 75 meq/ (Sodium Chloride) 1,075 mls @ 150 mls/hr IV .[id number] [facility] Last Admin: 08/05/16 10:02 Dose: 150 mls/hr Insulin Detemir (Levemir) 10 unit SC DAILY [facility] Last Admin: 08/05/16 11:11 Dose: 10 unit Insulin Human Regular (Humulin R High) 0 units SC ACHS [facility] PRN Reason: Protocol Oxycodone HCl (Oxycodone Immediate Release Tab) 15 mg PO Q4 PRN PRN Reason: Pain, Mild (1-3) Zinc Sulfate (Zinc Sulfate 220 Mg Cap) 220 mg PO DAILY [facility] Last Admin: 08/05/16 11:11 Dose: 220 mg Physical Exam - Constitutional Appears: Well, Non-toxic, No Acute Distress - Extremities Exam Additional comments: Bilateral lower extremity examination: Vascular: DP pulse faintly palpable; PT pulse non-palpable bilaterally; capillary fill time 3 sec to all digits; temperature gradient is WNL Neuro: protective sensation grossly diminished bilaterally Derm: Right- full-thickness heel ulcer present at plantar medial aspect of the heel; the wound base consists of fibrogranular tissue; moderate serous drainage; malodor noted; no purulence, negative for probe to bone, no clinical signs of infection noted Left- extensive ulceration noted starting from the plantar midfoot and extending proximally tot he posterior aspect of the lower leg in the region of the distal Achilles tendon; Wound base is mixed fibrogranular with severe serosanguinous drainage present; foul-odor is noted to be emanating from this wound; no purulence, negative for probe to bone; no evidence of cellulitis present at this time Results - Vital Signs Recent Vital Signs: Last Vital Signs Temp 99.0 F 08/05/16 02:00 Pulse 96 H 08/05/16 06:00 Resp 18 08/05/16 06:00 BP 153/97 H 08/05/16 10:18 Pulse Ox 99 08/05/16 06:00 - Labs Result Diagrams: 08/05/16 07:30 08/05/16 07:00 Labs: Laboratory Results - last 24 hr 08/04/16 08/04/16 08/04/16 21:18 23:30 23:50 WBC RBC Hgb Hct MCV MCH MCHC RDW Plt Count MPV Gran % Lymph % (Auto) Levy % (Auto) Eos % (Auto) Baso % (Auto) Gran # Lymph # Levy # Eos # Baso # ESR Retic Count pO2 212 H VBG pH 7.20 L VBG pCO2 35.0 L VBG HCO3 13.7 L VBG Total CO2 14.8 L VBG O2 Sat (Calc) 99.3 H VBG Base Excess -13.4 L VBG Potassium 3.0 L Sodium 133.0 Chloride 111.0 H Glucose 275 H Lactate 0.7 FiO2 21.0 Potassium Carbon Dioxide Anion Gap BUN Creatinine Est GFR ( Amer) Est GFR (Non-Af Amer) POC Glucose (mg/dL) Random Glucose Serum Osmolality 292 Calcium Phosphorus Magnesium Iron TIBC % Saturation Total Bilirubin AST ALT Alkaline Phosphatase Total Creatine Kinase C-React Prot High Sens Total Protein Albumin Globulin Albumin/Globulin Ratio Procalcitonin Venous Blood Potassium 3.0 L Urine Color Yellow Urine Appearance Sl cloudy Urine pH 6.0 Ur Specific [place] 1.020 Urine Protein >=300 H Urine Glucose (UA) 250 H Urine Ketones Negative Urine Blood Moderate H Urine Nitrate Negative Urine Bilirubin Negative Urine Urobilinogen 0.2 Ur Leukocyte Esterase Moderate H Urine RBC 5 - 10 Urine WBC Tntc Ur Epithelial Cells 1 - 3 Urine Bacteria Small Urine Other Uyeast Urine Osmolality Ur Random Creatinine Ur Random Sodium 08/04/16 08/05/16 08/05/16 23:50 07:00 07:00 WBC RBC Hgb Hct MCV MCH MCHC RDW Plt Count MPV Gran % Lymph % (Auto) Levy % (Auto) Eos % (Auto) Baso % (Auto) Gran # Lymph # Levy # Eos # Baso # ESR Retic Count pO2 VBG pH VBG pCO2 VBG HCO3 VBG Total CO2 VBG O2 Sat (Calc) VBG Base Excess VBG Potassium Sodium 130 L Chloride 107 Glucose Lactate FiO2 Potassium 3.7 Carbon Dioxide 16 L Anion Gap 11 BUN 40 H Creatinine 3.7 H Est GFR ( Amer) 16 Est GFR (Non-Af Amer) 13 POC Glucose (mg/dL) Random Glucose 309 H* Serum Osmolality Calcium 8.0 L Phosphorus 5.0 H Magnesium 1.6 L Iron TIBC % Saturation Total Bilirubin 0.4 AST 16 ALT 21 Alkaline Phosphatase 199 H Total Creatine Kinase C-React Prot High Sens Total Protein 6.3 Albumin 2.6 L Globulin 3.7 Albumin/Globulin Ratio 0.7 L Procalcitonin 12.14 H Venous Blood Potassium Urine Color Urine Appearance Urine pH Ur Specific [place] Urine Protein Urine Glucose (UA) Urine Ketones Urine Blood Urine Nitrate Urine Bilirubin Urine Urobilinogen Ur Leukocyte Esterase Urine RBC Urine WBC Ur Epithelial Cells Urine Bacteria Urine Other Urine Osmolality 305 Ur Random Creatinine 110 Ur Random Sodium 29 08/05/16 08/05/16 08/05/16 07:00 07:00 07:30 WBC 20.8 H RBC 3.37 L Hgb 9.1 L Hct 28.7 L MCV 85.2 MCH 27.0 MCHC 31.7 RDW 15.6 H Plt Count 209 MPV 10.5 Gran % 85.6 H Lymph % (Auto) 5.2 L Levy % (Auto) 8.9 H Eos % (Auto) 0.2 L Baso % (Auto) 0.1 Gran # 17.79 H Lymph # 1.1 L Levy # 1.9 H Eos # 0.0 Baso # 0.02 ESR 74 H Retic Count 1.19 pO2 VBG pH VBG pCO2 VBG HCO3 VBG Total CO2 VBG O2 Sat (Calc) VBG Base Excess VBG Potassium Sodium Chloride Glucose Lactate FiO2 Potassium Carbon Dioxide Anion Gap BUN Creatinine Est GFR ( Amer) Est GFR (Non-Af Amer) POC Glucose (mg/dL) Random Glucose Serum Osmolality Calcium Phosphorus Magnesium Iron 12 L TIBC 131 L % Saturation 9 L Total Bilirubin AST ALT Alkaline Phosphatase Total Creatine Kinase C-React Prot High Sens Total Protein Albumin Globulin Albumin/Globulin Ratio Procalcitonin Venous Blood Potassium Urine Color Urine Appearance Urine pH Ur Specific [place] Urine Protein Urine Glucose (UA) Urine Ketones Urine Blood Urine Nitrate Urine Bilirubin Urine Urobilinogen Ur Leukocyte Esterase Urine RBC Urine WBC Ur Epithelial Cells Urine Bacteria Urine Other Urine Osmolality Ur Random Creatinine Ur Random Sodium 08/05/16 08/05/16 08/05/16 07:30 07:30 08:01 WBC RBC Hgb Hct MCV MCH MCHC RDW Plt Count MPV Gran % Lymph % (Auto) Levy % (Auto) Eos % (Auto) Baso % (Auto) Gran # Lymph # Levy # Eos # Baso # ESR Retic Count pO2 VBG pH VBG pCO2 VBG HCO3 VBG Total CO2 VBG O2 Sat (Calc) VBG Base Excess VBG Potassium Sodium Chloride Glucose Lactate FiO2 Potassium Carbon Dioxide Anion Gap BUN Creatinine Est GFR ( Amer) Est GFR (Non-Af Amer) POC Glucose (mg/dL) 386 H Random Glucose Serum Osmolality Calcium Phosphorus Magnesium Iron TIBC % Saturation Total Bilirubin AST ALT Alkaline Phosphatase Total Creatine Kinase < 20 L C-React Prot High Sens > 15.00 H Total Protein Albumin Globulin Albumin/Globulin Ratio Procalcitonin Venous Blood Potassium Urine Color Urine Appearance Urine pH Ur Specific [place] Urine Protein Urine Glucose (UA) Urine Ketones Urine Blood Urine Nitrate Urine Bilirubin Urine Urobilinogen Ur Leukocyte Esterase Urine RBC Urine WBC Ur Epithelial Cells Urine Bacteria Urine Other Urine Osmolality Ur Random Creatinine Ur Random Sodium 08/05/16 08/05/16 09:37 11:15 WBC RBC Hgb Hct MCV MCH MCHC RDW Plt Count MPV Gran % Lymph % (Auto) Levy % (Auto) Eos % (Auto) Baso % (Auto) Gran # Lymph # Levy # Eos # Baso # ESR Retic Count pO2 VBG pH VBG pCO2 VBG HCO3 VBG Total CO2 VBG O2 Sat (Calc) VBG Base Excess VBG Potassium Sodium Chloride Glucose Lactate FiO2 Potassium Carbon Dioxide Anion Gap BUN Creatinine Est GFR ( Amer) Est GFR (Non-Af Amer) POC Glucose (mg/dL) 290 H 339 H Random Glucose Serum Osmolality Calcium Phosphorus Magnesium Iron TIBC % Saturation Total Bilirubin AST ALT Alkaline Phosphatase Total Creatine Kinase C-React Prot High Sens Total Protein Albumin Globulin Albumin/Globulin Ratio Procalcitonin Venous Blood Potassium Urine Color Urine Appearance Urine pH Ur Specific [place] Urine Protein Urine Glucose (UA) Urine Ketones Urine Blood Urine Nitrate Urine Bilirubin Urine Urobilinogen Ur Leukocyte Esterase Urine RBC Urine WBC Ur Epithelial Cells Urine Bacteria Urine Other Urine Osmolality Ur Random Creatinine Ur Random Sodium Assessment & Plan - Assessment and Plan (Free Text) Assessment: 50 y/o female patient with Schwartz Grade 3 Left lower extremity ulcer and Schwartz Grade 2 Right heel ulceration, secondary to diabetes. Plan: Patient was seen and evaluated at bedside with attending,Dr. Whitlock Labs and vitals reviewed: WBC 20.8; afebrile Bilateral wounds were cleansed with sterile saline-soaked gauze bilateral LE wounds were dressed with bacitracin, DSD, kerlix wound cx of left leg taken cont. IV abx as per ID x rays show OM of calcaneus of left foot, no acute signs of right foot OM podiatry will continue to follow <Lakhwinder Whitlock - Last Filed: 08/07/16 11:21> Meds - Medications Medications: Current Medications Alprazolam (Xanax) 2 mg PO DAILY PRN; Protocol PRN Reason: Anxiety Ascorbic Acid (Vitamin C 500 Mg Tab) 500 mg PO BID [facility] Last Admin: 08/06/16 17:36 Dose: 500 mg Calcium Acetate (Phoslo) 667 mg PO WM [facility] Last Admin: 08/07/16 08:21 Dose: 667 mg Daptomycin 570 mg/ Sodium (Chloride) 100 mls @ 200 mls/hr IV Q48H [facility] Stop: 08/10/16 10:01 Last Admin: 08/05/16 11:53 Dose: 200 mls/hr Sodium Bicarbonate 75 meq/ (Sodium Chloride) 1,075 mls @ 80 mls/hr IV .[id number] [facility] Last Admin: 08/06/16 00:36 Dose: 80 mls/hr Sodium Chloride (Sodium Chloride 0.9%) 1,000 mls @ 999 mls/hr IV .Q1H1M [facility] Last Admin: 08/06/16 06:18 Dose: 999 mls/hr Meropenem 500 mg/ Sodium (Chloride) 100 mls @ 100 mls/hr IVPB DAILY [facility] PRN Reason: Protocol Stop: 08/15/16 10:01 Insulin Detemir (Levemir) 10 unit SC DAILY [facility] Last Admin: 08/06/16 12:46 Dose: Not Given Insulin Human Regular (Humulin R High) 0 units SC ACHS [facility] PRN Reason: Protocol Last Admin: 08/07/16 07:59 Dose: Not Given Oxycodone HCl (Oxycodone Immediate Release Tab) 15 mg PO Q6 PRN PRN Reason: Pain, moderate (4-7) Polysaccharide Iron Complex (Ferrex-150) 150 mg PO DAILY [facility] Last Admin: 08/06/16 13:34 Dose: 150 mg Zinc Sulfate (Zinc Sulfate 220 Mg Cap) 220 mg PO DAILY [facility] Last Admin: 08/06/16 13:34 Dose: 220 mg Results - Vital Signs Recent Vital Signs: Last Vital Signs Temp 99 F 08/07/16 06:00 Pulse 91 H 08/07/16 06:00 Resp 19 08/07/16 06:00 BP 117/73 08/07/16 06:00 Pulse Ox 95 08/07/16 06:00 - Labs Result Diagrams: 08/07/16 05:45 08/07/16 05:45 Labs: Laboratory Results - last 24 hr 08/06/16 08/06/16 08/06/16 12:21 16:57 17:15 WBC RBC Hgb Hct MCV MCH MCHC RDW Plt Count MPV Gran % Lymph % (Auto) Levy % (Auto) Eos % (Auto) Baso % (Auto) Gran # Lymph # Levy # Eos # Baso # Sodium Potassium Chloride Carbon Dioxide Anion Gap BUN Creatinine Est GFR ( Amer) Est GFR (Non-Af Amer) POC Glucose (mg/dL) 195 H 218 H Random Glucose Calcium Phosphorus Magnesium Iron TIBC % Saturation Total Bilirubin AST ALT Alkaline Phosphatase Total Protein Albumin Globulin Albumin/Globulin Ratio Urine Eosinophils Negative Blood Type Antibody Screen Crossmatch BBK History Checked 08/06/16 08/07/16 08/07/16 21:26 05:30 05:45 WBC 17.2 H RBC 2.70 L Hgb 7.1 L Hct 22.9 L MCV 84.8 MCH 26.3 MCHC 31.0 RDW 15.5 H Plt Count 202 MPV 9.5 Gran % 78.6 H Lymph % (Auto) 12.3 L Levy % (Auto) 8.2 H Eos % (Auto) 0.8 L Baso % (Auto) 0.1 Gran # 13.54 H Lymph # 2.1 Levy # 1.4 H Eos # 0.1 Baso # 0.02 Sodium Potassium Chloride Carbon Dioxide Anion Gap BUN Creatinine Est GFR ( Amer) Est GFR (Non-Af Amer) POC Glucose (mg/dL) 110 Random Glucose Calcium Phosphorus Magnesium Iron TIBC % Saturation Total Bilirubin AST ALT Alkaline Phosphatase Total Protein Albumin Globulin Albumin/Globulin Ratio Urine Eosinophils Blood Type O POSITIVE Antibody Screen Negative Crossmatch See Detail BBK History Checked Patient has bt 08/07/16 08/07/16 08/07/16 05:45 05:45 07:29 WBC RBC Hgb Hct MCV MCH MCHC RDW Plt Count MPV Gran % Lymph % (Auto) Levy % (Auto) Eos % (Auto) Baso % (Auto) Gran # Lymph # Levy # Eos # Baso # Sodium 128 L Potassium 3.6 Chloride 104 Carbon Dioxide 16 L Anion Gap 12 BUN 48 H Creatinine 5.1 H Est GFR ( Amer) 11 Est GFR (Non-Af Amer) 9 POC Glucose (mg/dL) 122 H Random Glucose 97 Calcium 8.0 L Phosphorus 4.7 H Magnesium 1.9 Iron 21 L TIBC 126 L % Saturation 17 L Total Bilirubin 0.4 AST 23 ALT 24 Alkaline Phosphatase 254 H Total Protein 5.6 L Albumin 2.4 L Globulin 3.2 Albumin/Globulin Ratio 0.8 L Urine Eosinophils Blood Type Antibody Screen Crossmatch BBK History Checked Attending/Attestation - Attestation I have personally seen and examined this patient.: Yes I have fully participated in the care of the patient.: Yes I have reviewed all pertinent clinical information: Yes
[2016-08-05] MEDS: oxyCODONE 30 mg Immediate Release Tab PO PRN (14:18)
[2016-08-05] MEDS: Insulin Reg-HIGH-Coverage SC SCH ×2 (14:22→18:17)
[2016-08-05] MEDS ORDERED: Lidocaine 2% Inj (20ml) ONE (14:53)
--- NOTE | 2016-08-05 17:24 | CP.PCM.CON ---
History of Present Illness - History of Present Illness History of Present Illness: 51 year old female with PMH of HTN, history of seizures, coronary artery disease , atrial fibrillation, DM, history of CVA, histrory of MRSA bacteremia, history of left leg osteomyelitis and cellulitis S/P debridement and skin grafting, which grew Pseudomonas and multidrug resistant Klebsiella (ESBL-producing) and also multidrug resistant Pseudomonas was recently treated for osteomyelitis with antibiotics and hyperbaric oxygen therapy. Her last antibiotic intake was in May 2016. She was doing apparently well and following up with Dr. Helton regularly until about 5-6 days ago, when she started feeling pain again on his left leg. Yesterday, after hyperbaric oxygen therapy, she developed fevers. She has some open ulcer on her left leg and foot. She denies animal contacts, no walking barefoot on soil, no soaking her legs in water. She denies headache or dizziness, no nausea or vomiting, no palpitations, no chest pain, no headache or dizziness, no dysuria, no diarrhea. In the ED, xray of the left foot shows possible acute osteomyelitis of the calcaneous. Infectious Diseases consult is requested to further evaluate and manage. Review of Systems - Review of Systems All systems: reviewed and no additional remarkable complaints except (as per HPI ) Past Patient History - Infectious Disease Hx of Infectious Diseases: None - Past Social History Smoking Status: Heavy Smoker > 10 Cigarettes Daily - CARDIAC Hx Cardiac Disorders: Yes Hx Hypertension: Yes - PULMONARY Hx Respiratory Disorders: No - NEUROLOGICAL Hx Neurological Disorder: Yes HX Cerebrovascular Accident: Yes - HEENT Hx HEENT Problems: No - RENAL Hx Chronic Kidney Disease: Yes Other/Comment: Renal insufficiency - ENDOCRINE/METABOLIC Hx Endocrine Disorders: Yes Hx Diabetes Mellitus Type 2: Yes - HEMATOLOGICAL/ONCOLOGICAL Hx Blood Transfusions: Yes Hx Blood Transfusion Reaction: No - INTEGUMENTARY Hx Dermatological Problems: Yes Other/Comment: Cellulitis - MUSCULOSKELETAL/RHEUMATOLOGICAL Hx Musculoskeletal Disorders: Yes Hx Falls: No Hx Osteomyelitis: Yes Hx Unsteady Gait: Yes (Splint noted to left foot and lower extremity (hardshoe)) - GASTROINTESTINAL Hx Gastrointestinal Disorders: No - GENITOURINARY/GYNECOLOGICAL Hx Genitourinary Disorders: No - PSYCHIATRIC Hx Psychophysiologic Disorder: No Hx Substance Use: No - SURGICAL HISTORY Hx Cholecystectomy: Yes - ANESTHESIA Hx Anesthesia Reactions: No Hx Malignant Hyperthermia: No Meds Allergies/Adverse Reactions: Allergies Allergy/AdvReac Type Severity Reaction Status Date / Time dominique Allergy Intermediate RASH Verified 01/22/16 11:44 peanut Allergy Unknown RASH Verified 01/22/16 11:44 acetaminophen [From Vicodin] Allergy RASH Verified 01/22/16 11:44 almond Allergy ANAPHYLAXIS Verified 01/22/16 11:44 hydrocodone bitartrate Allergy RASH Verified 01/22/16 11:44 [From Vicodin] hydromorphone HCl Allergy RASH Verified 01/22/16 11:44 [From Dilaudid] linezolid Allergy RASH Verified 01/22/16 11:44 morphine Allergy RASH Verified 01/22/16 11:44 Penicillins Allergy ANAPHYLAXIS Verified 08/04/16 20:21 seafood Allergy ANAPHYLAXIS Uncoded 01/22/16 11:44 - Medications Medications: Current Medications Alprazolam (Xanax) 2 mg PO DAILY PRN; Protocol PRN Reason: Anxiety Ascorbic Acid (Vitamin C 500 Mg Tab) 500 mg PO BID [facility] Daptomycin (Cubicin) 570 mg 6 mg/kg (570 mg) IV QOTHERDAY [facility] PRN Reason: Protocol Stop: 08/10/16 10:01 Heparin Sodium (Porcine) (Heparin) 5,000 units SC Q12 [facility] PRN Reason: Protocol Sodium Bicarbonate 75 meq/ (Sodium Chloride) 1,075 mls @ 100 mls/hr IV .[id number] [facility] Last Admin: 08/05/16 00:32 Dose: 100 mls/hr Meropenem 500 mg/ Sodium (Chloride) 100 mls @ 100 mls/hr IVPB Q12 [facility] PRN Reason: Protocol Stop: 08/13/16 10:01 Insulin Human Regular (Humulin R Low) 0 units SC ACHS [facility] PRN Reason: Protocol Oxycodone HCl (Oxycodone Immediate Release Tab) 15 mg PO Q4 PRN PRN Reason: Pain, Mild (1-3) Zinc Sulfate (Zinc Sulfate 220 Mg Cap) 220 mg PO DAILY [facility] Physical Exam - Constitutional Appears: Non-toxic, No Acute Distress - Head Exam Head Exam: NORMAL INSPECTION - ENT Exam ENT Exam: Mucous Membranes Moist - Neck Exam Neck exam: Negative for: Lymphadenopathy, Meningismus - Respiratory Exam Respiratory Exam: Decreased Breath Sounds - Cardiovascular Exam Cardiovascular Exam: +S1, +S2 - GI/Abdominal Exam GI & Abdominal Exam: Soft. absent: Tenderness - Extremities Exam Additional comments: left leg with some open ulcers, heel area with ulcer noted with some drainage Results - Vital Signs Recent Vital Signs: Last Vital Signs Temp 99.0 F 08/05/16 02:00 Pulse 96 H 08/05/16 06:00 Resp 18 08/05/16 06:00 BP 118/62 08/05/16 06:00 Pulse Ox 99 08/05/16 06:00 - Labs Result Diagrams: 08/05/16 07:30 08/05/16 07:00 Labs: Laboratory Results - last 24 hr 08/04/16 08/04/16 08/04/16 21:18 23:30 23:50 pO2 212 H VBG pH 7.20 L VBG pCO2 35.0 L VBG HCO3 13.7 L VBG Total CO2 14.8 L VBG O2 Sat (Calc) 99.3 H VBG Base Excess -13.4 L VBG Potassium 3.0 L Sodium 133.0 Chloride 111.0 H Glucose 275 H Lactate 0.7 FiO2 21.0 Serum Osmolality 292 Venous Blood Potassium 3.0 L Urine Color Yellow Urine Appearance Sl cloudy Urine pH 6.0 Ur Specific [place] 1.020 Urine Protein >=300 H Urine Glucose (UA) 250 H Urine Ketones Negative Urine Blood Moderate H Urine Nitrate Negative Urine Bilirubin Negative Urine Urobilinogen 0.2 Ur Leukocyte Esterase Moderate H Urine RBC 5 - 10 Urine WBC Tntc Ur Epithelial Cells 1 - 3 Urine Bacteria Small Urine Other Uyeast Urine Osmolality Ur Random Creatinine Ur Random Sodium 08/04/16 23:50 pO2 VBG pH VBG pCO2 VBG HCO3 VBG Total CO2 VBG O2 Sat (Calc) VBG Base Excess VBG Potassium Sodium Chloride Glucose Lactate FiO2 Serum Osmolality Venous Blood Potassium Urine Color Urine Appearance Urine pH Ur Specific [place] Urine Protein Urine Glucose (UA) Urine Ketones Urine Blood Urine Nitrate Urine Bilirubin Urine Urobilinogen Ur Leukocyte Esterase Urine RBC Urine WBC Ur Epithelial Cells Urine Bacteria Urine Other Urine Osmolality 305 Ur Random Creatinine 110 Ur Random Sodium 29 Assessment & Plan - Assessment and Plan (Free Text) Plan: Assessment sepsis due to left foot skin and skin structure infection with probable osteomyelitis of the left calcaneous as seen on xray history of left foot skin and skin structure infection and ostemyelitis with history of infection with MRSA, ESBL Klebsiella and MDR Pseudomonas history of methicillin-resistant staph aureus bacteremia Chronic renal failure history of left leg osteomyelitis and cellulitis S/P debridement and skin grafting, which grew Pseudomonas and multidrug resistant Klebsiella (ESBL- producing) and also multidrug resistant Pseudomonas history of pseudomembranous colitis Leukocytosis probably due to systemic steroid use HTN history of seizures coronary artery disease atrial fibrillation DM history of CVA Plan Follow up blood and wound cx; started patient on Daptomycin and Merrem for now; reviewed xray of the left foot; reviewed Podiatry evaluation Will follow clinically
--- NOTE | 2016-08-05 17:41 | CARD ---
APPROVED REPORT EKG Measurement Heart [id number] <Conclusion> Sinus tachycardia with premature supraventricular complexes Otherwise normal ECG
[2016-08-05 18:01] LABS: FOLATE 14.5 ng/mL
--- NOTE | 2016-08-05 18:12 | CON ---
DATE: 08/05/2016 The patient admitted for Dr. Javon Cross. FAMILY PHYSICIAN: Dr. Terence Villarreal. REFERRING PHYSICIAN: Dr. Javon Cross. REASON FOR CONSULTATION: To evaluate patient for a patient unknown to me who presents with acute renal failure superimposed on chronic kidney disease stage III in the setting of bilateral lower extremity infection and possible osteomyelitis. HISTORY OF PRESENT ILLNESS: The patient is a 51-year-old black female with a history of IDDM, currently on insulin of many years' duration, history of hypertension, history of atrial fibrillation, history of osteomyelitis of her left heel, past history of interstitial nephritis, history of anemia secondary to renal failure, history of a CVA in the past, history of hepatitis C, history of secondary hyperparathyroidism, history of peripheral vascular disease. The patient is currently seen in the Emergency Room coming back from vascular studies done in radiology. The patient's baseline BUN is in the 40s with a baseline creatinine in the 1.7-1.8 range. She presents to the hospital with a BUN of 40, but with a creatinine of 3.4 which today is 3.7. The patient is known to be significantly acidotic with a CO2 of 16. Anion gap is 11. Her sodium level was 130. Sugar was 309. We are asked to evaluate the patient for acute renal failure superimposed on chronic kidney disease stage III. The patient had a normal abdominal ultrasound done in the fall of 2015, which showed normal kidneys. PAST MEDICAL HISTORY: Significant for diabetes mellitus, currently on insulin of many years' duration; hypertension, peripheral vascular disease, atrial fibrillation, osteomyelitis of her left heel, interstitial nephritis, anemia secondary to chronic kidney disease, past history of CVA, history of hepatitis C infection, history of secondary hyperparathyroidism. MEDICATIONS: At home include that of Norvasc, zinc, simethicone, Senokot, Xarelto, Roxicodone, Levemir, NovoLog, Neurontin, Lexapro, Procrit, Benadryl, hygroton, Lipitor, vitamin C and Xanax. ALLERGIES: INCLUDE THAT OF CHERRIES, PEANUTS, ACETAMINOPHEN, VICODIN, ALMONDS, HYDROMORPHONE, ZYVOX, MORPHINE, PENICILLIN, AND SEAFOOD. PRESENT MEDICATIONS IN HOSPITAL: Include that of daptomycin, insulin, meropenem , oxycodone, sodium bicarbonate in half normal saline, vitamin C, Xanax, and zinc. SOCIAL HISTORY: The patient is a current cigarette smoker. Past history of alcohol use. FAMILY HISTORY: As per old charts noncontributory. REVIEW OF SYSTEMS: Ten plus systems briefly reviewed with the patient, all is negative except for what is noted above in history of present illness. PHYSICAL EXAMINATION: GENERAL: The patient is currently seen in the Emergency Room. She is receiving IV fluid hydration with sodium bicarbonate. She is receiving IV antibiotic therapy. VITAL SIGNS: Blood pressure ranging from 118 systolic to 153 with diastolics ranging from 62 -97. Pulse is 96. Temperature is 99. Respiratory rate is 18. Oxygen saturation is 100%. HEENT: Shows her to be normocephalic, atraumatic. Conjunctivae are pale. Sclerae are nonicteric. Pupils equal and reactive to light and accommodation. Extraocular muscles are intact. Posterior pharynx is normal. NECK: Supple without neck vein distention. No thyromegaly. No lymphadenopathy. No bruits. CHEST: Clear to and percussion with no rubs, no rhonchi, no wheezing. CARDIOVASCULAR: Shows a regular rate and rhythm with a soft systolic murmur left lower sternal border. ABDOMEN: Soft. Bowel sounds normal. No rebound, no guarding, no masses. EXTREMITIES: Shows dressings on her lower extremity bilaterally. No pitting edema. Diminished lower extremity pulses bilaterally. NEUROLOGIC: Shows her to be alert, oriented with no gross focal motor or sensory deficits noted. IMAGING: Admitting chest x-ray shows some basilar atelectasis. The patient had an abdominal ultrasound done in the fall of 2015 with normal kidneys. LABORATORY DATA: CBC: White blood cell count 20.8, hemoglobin low with a platelet count of 209,000. Coags: PTT 40.4, PT is 11.7. Chemistries show a sodium of 130 with a glucose of 309 and corrected sodium is 132-133. Potassium is 3.7. CO2 is 16 with an anion gap of 11. BUN is 40, which is at her baseline. Creatinine is 3.7, which is double her baseline level. Calcium is 8.0 with an albumin of 2.6, it corrects to normal. Phosphorus is 5.0 with the magnesium of 1.6. Iron saturations are 9%. Procalcitonin is elevated at 12.14. Liver enzymes are normal. Alkaline phosphatase, however, is 199. Urines showed 4+ protein. She has glucose in her urine. 5-10 red blood cells per high-power field, TNTC white blood cells per high-power field. Urine osmolality was 305, urine creatinine was 110 with a urine sodium of 29. MICROBIOLOGY: All cultures are pending at this time. ASSESSMENT: 1. Acute renal failure superimposed on chronic kidney disease stage III, in the setting of likely an infected ulceration and wound of her lower extremity bilaterally. The patient has had osteomyelitis in the past. She is currently on IV antibiotic therapy for likely recurrent relapsing infection of her lower extremity. 2. Chronic kidney disease stage III as her baseline. The patient likely has diabetic nephropathy. Will obtain a 24-hour urine for creatinine clearance and protein to establish a baseline once her creatinine hits 1.7-1.8. 3. Mild hyponatremia. Back to a sodium of 132-133 given her glucose level over 300. 4. Metabolic acidosis, non-anion gap. The patient is receiving IV fluid with sodium bicarbonate. 5. History of anemia in part secondary to chronic kidney disease and in part secondary to iron deficiency. Once we are certain that her blood cultures are negative the patient may receive IV Venofer 200 mg every 48 hours for a maximum of 1 gram. 6. History of secondary hyperparathyroidism. The patient should be started on a renal diet and continue a low phosphorus diet. I will also place her on phosphorus binders. 7. Past history of interstitial nephritis, past history of steroid use for treatment of interstitial nephritis. PLAN: 1. Continue to monitor her labs on a daily basis. 2. Continue IV fluid hydration isotonic fluids containing sodium bicarbonate. 3. Agree with antibiotic choices pending cultures. In the past, her cultures were positive for Staphylococcus aureus, Klebsiella and pseudomonas. 4. Obtain urine culture and urine eosinophil stain. 5. Obtain 24-hour urine for creatinine clearance and protein. 6. Continue patient on a renal diet and start binder therapy. 7. Will follow along with you closely over the next several days until her BUN and creatinine fall back to baseline levels. 8. Agree with local wound care podiatry, ID and vascular evaluation. Thank you for letting me partake and share in the care of your patient. Nick Law MD cc: [id number] TT: 08/05/2016 18:11:33 Confirmation # [id number] Dictation # [id number] diony PATE
--- NOTE | 2016-08-05 18:13 | VASCULAR ---
PROCEDURE: Ultrasound and fluoroscopically placed left upper extremity PICC line. HISTORY: Chronic osteomyelitis. Long-term IV antibiotics. Needs PICC line. PHYSICIAN(S): Rajesh Bob MD. TECHNIQUE: The relative risks and indications of the procedure were explained to the patient and consent obtained. The patient was placed supine on the arteriogram table and the left arm prepped and draped in the usual sterile fashion. A tourniquet was applied to the left axilla. 1% Xylocaine was used to anesthetize the skin and soft tissues at the puncture site above the elbow. The basilic vein was punctured under direct ultrasound guidance with a micropuncture set. A 0.018 guidewire was advanced centrally and used to measure the length to the SVC/RA junction. A 5 Guyanese single-lumen PICC line 45 cm long was advanced to the SVC/RA junction. The catheter was flushed and secured. The patient tolerated the procedure well. IMPRESSION: 1. Ultrasound and fluoroscopically placed left upper extremity PICC line. A 5 [place]yanese single-lumen PICC line 45 cm long was advanced to the SVC/RA junction.
[2016-08-06] MEDS ORDERED: Sodium Bicarbonate 8.4% 75 MEQ in Dextrose 5% In Water 1,000 ML IV SCH (00:30)
[2016-08-06] MEDS: oxyCODONE 30 mg Immediate Release Tab PO PRN (00:36)
[2016-08-06] MEDS: Meropenem 500 MG in Sodium Chloride 0.9% 100 ML IVPB SCH ×3 (00:36→22:41)
[2016-08-06] MEDS: Insulin Reg-HIGH-Coverage SC SCH ×4 (00:50→22:36)
[2016-08-06 01:14] LABS: CALCIUM 8.2 mg/dL (8.4-10.5); POTASSIUM 3.6 mmol/L (3.6-5.0)
[2016-08-06] MEDS ORDERED: Sodium Chloride 0.9% 1,000 ML IV SCH (06:15)
[2016-08-06 06:56] LABS: ADD MANUAL DIFF? NO
[2016-08-06 07:10] LABS: BASO # 0.01 K/mm3 (0.0-2.0); BASO % 0.1 % (0.0-3.0); EOS % 0.2 % (1.5-5.0); GRAN # 15.24 (1.4-6.5); GRAN % 80.8 % (50.0-68.0); LYMPH % 10.4 % (22.0-35.0); MEAN CELL VOLUME 84.1 fL (80.0-105.0); MEAN CORPUSCULAR HEMOGLOBIN 26.5 pg (25.0-35.0); MEAN CORPUSCULAR HGB CONC 31.5 g/dl (31.0-37.0); MEAN PLATELET VOLUME 9.9 fl (7.0-11.0); MONO # 1.6 (0.1-0.6); MONO % 8.5 % (1.0-6.0); PLATELET COUNT 218 10^3/uL (120.0-450.0); RED CELL DISTRIBUTION WIDTH 15.5 % (11.5-14.5); WHITE BLOOD COUNT 18.9 10^3/ul (4.5-11.0)
[2016-08-06 07:21] LABS: BILIRUBIN,TOTAL 0.5 mg/dL (0.2-1.3); POTASSIUM 3.5 mmol/L (3.6-5.0); TOTAL PROTEIN 5.6 g/dL (5.8-8.3)
[2016-08-06 07:32] LABS: ALB/GLOB RATIO 0.7 (1.1-1.8); CALCIUM 7.8 mg/dL (8.4-10.5)
[2016-08-06 07:38] LABS: HEMATOCRIT 23.8 % (36.0-48.0)
[2016-08-06] MEDS ORDERED: Amikacin 500 MG in Dextrose 5% In Water 100 ML IVPB ONE (08:15)
--- NOTE | 2016-08-06 10:29 | CP.PCM.PN ---
Subjective - Date & Time of Evaluation Date of Evaluation: 08/06/16 Time of Evaluation: 09:30 - Subjective Subjective: Still having fevers, still with pain in the left foot. Objective - Vital Signs/Intake and Output Vital Signs (last 24 hours): Temp Pulse Resp BP Pulse Ox 99.9 F H 108 H 19 146/76 97 08/06/16 00:01 08/06/16 04:43 08/06/16 00:01 08/06/16 00:01 08/05/16 21:32 Intake and Output: 08/05/16 08/06/16 18:59 06:59 Intake Total 0 Output Total 0 Balance 0 - Medications Medications: Current Medications Acetaminophen (Tylenol 325mg Tab) 650 mg PO Q4H PRN PRN Reason: Fever >100.4 F Alprazolam (Xanax) 2 mg PO DAILY PRN; Protocol PRN Reason: Anxiety Ascorbic Acid (Vitamin C 500 Mg Tab) 500 mg PO BID [facility] Last Admin: 08/05/16 18:33 Dose: 500 mg Calcium Acetate (Phoslo) 667 mg PO WM [facility] Last Admin: 08/05/16 18:33 Dose: 667 mg Meropenem 500 mg/ Sodium (Chloride) 100 mls @ 100 mls/hr IVPB Q12 [facility] PRN Reason: Protocol Stop: 08/13/16 10:01 Last Admin: 08/06/16 00:36 Dose: 100 mls/hr Daptomycin 570 mg/ Sodium (Chloride) 100 mls @ 200 mls/hr IV Q48H [facility] Stop: 08/10/16 10:01 Last Admin: 08/05/16 11:53 Dose: 200 mls/hr Sodium Bicarbonate 75 meq/ (Sodium Chloride) 1,075 mls @ 80 mls/hr IV .[id number] [facility] Last Admin: 08/06/16 00:36 Dose: 80 mls/hr Sodium Chloride (Sodium Chloride 0.9%) 1,000 mls @ 999 mls/hr IV .Q1H1M [facility] Last Admin: 08/06/16 06:18 Dose: 999 mls/hr Insulin Detemir (Levemir) 10 unit SC DAILY [facility] Last Admin: 08/05/16 11:11 Dose: 10 unit Insulin Human Regular (Humulin R High) 0 units SC ACHS [facility] PRN Reason: Protocol Last Admin: 08/06/16 00:50 Dose: Not Given Oxycodone HCl (Oxycodone Immediate Release Tab) 30 mg PO Q6 PRN PRN Reason: Pain, moderate (4-7) Last Admin: 08/06/16 00:36 Dose: 30 mg Polysaccharide Iron Complex (Ferrex-150) 150 mg PO DAILY [facility] Zinc Sulfate (Zinc Sulfate 220 Mg Cap) 220 mg PO DAILY [facility] Last Admin: 08/05/16 11:11 Dose: 220 mg - Labs Labs: 08/05/16 07:30 08/06/16 00:40 PT 11.7 Seconds (9.9-11.8) 08/04/16 20:00 INR 1.08 (0.93-1.08) 08/04/16 20:00 APTT 40.4 Seconds (23.7-30.8) H 08/04/16 20:00 - Constitutional Appears: Other (still feels weak) - Head Exam Head Exam: NORMAL INSPECTION - ENT Exam ENT Exam: Mucous Membranes Moist - Neck Exam Neck Exam: absent: Lymphadenopathy, Meningismus - Respiratory Exam Respiratory Exam: Decreased Breath Sounds - Cardiovascular Exam Cardiovascular Exam: +S1, +S2 - GI/Abdominal Exam GI & Abdominal Exam: Soft. absent: Tenderness - Extremities Exam Additional comments: left foot with dressings in place Assessment and Plan - Assessment and Plan (Free Text) Plan: Assessment sepsis due to left foot skin and skin structure infection with probable osteomyelitis of the left calcaneus as seen on xray history of left foot skin and skin structure infection and ostemyelitis with history of infection with MRSA, ESBL Klebsiella and MDR Pseudomonas history of methicillin-resistant staph aureus bacteremia Chronic renal failure history of left leg osteomyelitis and cellulitis S/P debridement and skin grafting, which grew Pseudomonas and multidrug resistant Klebsiella (ESBL- producing) and also multidrug resistant Pseudomonas history of pseudomembranous colitis Leukocytosis probably due to systemic steroid use HTN history of seizures coronary artery disease atrial fibrillation DM history of CVA Plan Follow up blood and wound cx; continue Daptomycin and Merrem day 2 and will add Amikacin 500 mg q48 hours based on her previous cultures showing Pseudomonas that is multidrug resistant; reviewed xray of the left foot; reviewed Podiatry evaluation Will continue to follow clinically, trend fever curve and WBC count
--- NOTE | 2016-08-06 12:06 | CP.PCM.PN ---
<Myles Deea - Last Filed: 08/06/16 12:01> Subjective - Date & Time of Evaluation Date of Evaluation: 08/06/16 Time of Evaluation: 12:01 - Subjective Subjective: 51 y.o female seen at bedside with attending Dr. Helton for bilateral heel ulcerations, left leg ulcerations. Patient denies any acute events overnight. SHe denies any pain in her legs. Dressings to legs clean,dry,intact. Patient denies n/f/v/d/c/sob. Objective - Vital Signs/Intake and Output Vital Signs (last 24 hours): Temp Pulse Resp BP Pulse Ox 102.9 F H 126 H 19 96/58 L 97 08/06/16 06:00 08/06/16 06:00 08/06/16 06:00 08/06/16 06:00 08/05/16 21:32 Intake and Output: 08/06/16 08/06/16 06:59 18:59 Intake Total 1860 Output Total 0 Balance 1860 - Medications Medications: Current Medications Acetaminophen (Tylenol 325mg Tab) 650 mg PO Q4H PRN PRN Reason: Fever >100.4 F Alprazolam (Xanax) 2 mg PO DAILY PRN; Protocol PRN Reason: Anxiety Ascorbic Acid (Vitamin C 500 Mg Tab) 500 mg PO BID [facility] Last Admin: 08/05/16 18:33 Dose: 500 mg Calcium Acetate (Phoslo) 667 mg PO WM [facility] Last Admin: 08/06/16 08:28 Dose: 667 mg Meropenem 500 mg/ Sodium (Chloride) 100 mls @ 100 mls/hr IVPB Q12 [facility] PRN Reason: Protocol Stop: 08/13/16 10:01 Last Admin: 08/06/16 00:36 Dose: 100 mls/hr Daptomycin 570 mg/ Sodium (Chloride) 100 mls @ 200 mls/hr IV Q48H [facility] Stop: 08/10/16 10:01 Last Admin: 08/05/16 11:53 Dose: 200 mls/hr Sodium Bicarbonate 75 meq/ (Sodium Chloride) 1,075 mls @ 80 mls/hr IV .[id number] [facility] Last Admin: 08/06/16 00:36 Dose: 80 mls/hr Sodium Chloride (Sodium Chloride 0.9%) 1,000 mls @ 999 mls/hr IV .Q1H1M [facility] Last Admin: 08/06/16 06:18 Dose: 999 mls/hr Amikacin Sulfate 500 mg/ (Dextrose) 102 mls @ 204 mls/hr IVPB QOTHERDAY [facility] PRN Reason: Protocol Insulin Detemir (Levemir) 10 unit SC DAILY [facility] Last Admin: 08/05/16 11:11 Dose: 10 unit Insulin Human Regular (Humulin R High) 0 units SC ACHS [facility] PRN Reason: Protocol Last Admin: 08/06/16 00:50 Dose: Not Given Oxycodone HCl (Oxycodone Immediate Release Tab) 30 mg PO Q6 PRN PRN Reason: Pain, moderate (4-7) Last Admin: 08/06/16 00:36 Dose: 30 mg Polysaccharide Iron Complex (Ferrex-150) 150 mg PO DAILY [facility] Zinc Sulfate (Zinc Sulfate 220 Mg Cap) 220 mg PO DAILY [facility] Last Admin: 08/05/16 11:11 Dose: 220 mg - Labs Labs: 08/06/16 06:40 08/06/16 06:40 PT 11.7 Seconds (9.9-11.8) 08/04/16 20:00 INR 1.08 (0.93-1.08) 08/04/16 20:00 APTT 40.4 Seconds (23.7-30.8) H 08/04/16 20:00 - Constitutional Appears: Well, Non-toxic, No Acute Distress - Extremities Exam Additional comments: Bilateral lower extremity examination: Vascular: DP pulse faintly palpable; PT pulse non-palpable bilaterally; capillary fill time 3 sec to all digits; temperature gradient is WNL Neuro: protective sensation grossly diminished bilaterally Derm: Right- full-thickness heel ulcer present at plantar medial aspect of the heel; the wound base consists of fibrogranular tissue; moderate serous drainage; malodor noted; no purulence, negative for probe to bone, no clinical signs of infection noted Left- extensive ulceration noted starting from the plantar midfoot and extending proximally tot he posterior aspect of the lower leg in the region of the distal Achilles tendon; Wound base is mixed fibrogranular with severe serosanguinous drainage present; foul-odor is noted to be emanating from this wound; no purulence, negative for probe to bone; no evidence of cellulitis present at this time - Neurological Exam Neurological Exam: Alert, Awake, Oriented x3 - Psychiatric Exam Psychiatric exam: Normal Affect, Normal Mood Assessment and Plan - Assessment and Plan (Free Text) Assessment: 50 y/o female patient with Schwartz Grade 3 Left lower extremity ulcer and Schwartz Grade 2 Right heel ulceration, secondary to diabetes. Plan: Patient was seen and evaluated at bedside with attending,Dr. Helton Labs and vitals reviewed: WBC 18.9; afebrile Bilateral wounds were cleansed with sterile saline-soaked gauze bilateral LE wounds were dressed with xeroform, DSD, kerlix wound cx : awaiting results cont. IV abx as per ID x rays show OM of calcaneus of left foot, no acute signs of right foot OM discussed in detail with patient the need for a below knee amputation. discussed the severity of the infection and reasons she has been becoming septic discussed in detail with patient that she will be able to ambulate again with the BKA and a prosthetic device discussed the risks, benefits, complications of surgical intervention - patient will think about it podiatry will continue to follow <Casie Helton - Last Filed: 08/06/16 12:53> Objective - Vital Signs/Intake and Output Vital Signs (last 24 hours): Temp Pulse Resp BP Pulse Ox 102.9 F H 126 H 19 96/58 L 97 08/06/16 06:00 08/06/16 06:00 08/06/16 06:00 08/06/16 06:00 08/05/16 21:32 Intake and Output: 08/06/16 08/06/16 06:59 18:59 Intake Total 1860 Output Total 0 Balance 1860 - Medications Medications: Current Medications Acetaminophen (Tylenol 325mg Tab) 650 mg PO Q4H PRN PRN Reason: Fever >100.4 F Alprazolam (Xanax) 2 mg PO DAILY PRN; Protocol PRN Reason: Anxiety Ascorbic Acid (Vitamin C 500 Mg Tab) 500 mg PO BID [facility] Last Admin: 08/05/16 18:33 Dose: 500 mg Calcium Acetate (Phoslo) 667 mg PO WM [facility] Last Admin: 08/06/16 08:28 Dose: 667 mg Meropenem 500 mg/ Sodium (Chloride) 100 mls @ 100 mls/hr IVPB Q12 [facility] PRN Reason: Protocol Stop: 08/13/16 10:01 Last Admin: 08/06/16 00:36 Dose: 100 mls/hr Daptomycin 570 mg/ Sodium (Chloride) 100 mls @ 200 mls/hr IV Q48H [facility] Stop: 08/10/16 10:01 Last Admin: 08/05/16 11:53 Dose: 200 mls/hr Sodium Bicarbonate 75 meq/ (Sodium Chloride) 1,075 mls @ 80 mls/hr IV .[id number] [facility] Last Admin: 08/06/16 00:36 Dose: 80 mls/hr Sodium Chloride (Sodium Chloride 0.9%) 1,000 mls @ 999 mls/hr IV .Q1H1M [facility] Last Admin: 08/06/16 06:18 Dose: 999 mls/hr Amikacin Sulfate 500 mg/ (Dextrose) 102 mls @ 204 mls/hr IVPB QOTHERDAY [facility] PRN Reason: Protocol Insulin Detemir (Levemir) 10 unit SC DAILY [facility] Last Admin: 08/05/16 11:11 Dose: 10 unit Insulin Human Regular (Humulin R High) 0 units SC ACHS [facility] PRN Reason: Protocol Last Admin: 08/06/16 00:50 Dose: Not Given Oxycodone HCl (Oxycodone Immediate Release Tab) 30 mg PO Q6 PRN PRN Reason: Pain, moderate (4-7) Last Admin: 08/06/16 00:36 Dose: 30 mg Polysaccharide Iron Complex (Ferrex-150) 150 mg PO DAILY [facility] Zinc Sulfate (Zinc Sulfate 220 Mg Cap) 220 mg PO DAILY [facility] Last Admin: 08/05/16 11:11 Dose: 220 mg - Labs Labs: 08/06/16 06:40 08/06/16 06:40 PT 11.7 Seconds (9.9-11.8) 08/04/16 20:00 INR 1.08 (0.93-1.08) 08/04/16 20:00 APTT 40.4 Seconds (23.7-30.8) H 08/04/16 20:00 Attending/Attestation - Attestation I have personally seen and examined this patient.: Yes I have fully participated in the care of the patient.: Yes I have reviewed all pertinent clinical information, including history, physical exam and plan: Yes
[2016-08-06] MEDS: Insulin Detemir 100 units/ml Vial (Levemir) SC SCH (12:46)
--- NOTE | 2016-08-06 13:20 | CP.PCM.PN ---
<Emeterio Lamb - Last Filed: 08/06/16 16:38> Subjective - Date & Time of Evaluation Date of Evaluation: 08/06/16 Time of Evaluation: 13:18 - Subjective Subjective: Patient seen and examined this morning. No acute events overnight. Patient is febrile 102.9F and tachycardic. She is very drowsy and requires repeated prompting to questions. Wounds are cleaned and dressed. She denies any chest pain, shortness of breath, diarrhea, vomiting or urinary complaints. Objective - Vital Signs/Intake and Output Vital Signs (last 24 hours): Temp Pulse Resp BP Pulse Ox 102.9 F H 126 H 19 96/58 L 97 08/06/16 06:00 08/06/16 06:00 08/06/16 06:00 08/06/16 06:00 08/05/16 21:32 Intake and Output: 08/06/16 08/06/16 06:59 18:59 Intake Total 1860 Output Total 0 Balance 1860 - Medications Medications: Current Medications Acetaminophen (Tylenol 325mg Tab) 650 mg PO Q4H PRN PRN Reason: Fever >100.4 F Alprazolam (Xanax) 2 mg PO DAILY PRN; Protocol PRN Reason: Anxiety Ascorbic Acid (Vitamin C 500 Mg Tab) 500 mg PO BID [facility] Last Admin: 08/05/16 18:33 Dose: 500 mg Calcium Acetate (Phoslo) 667 mg PO WM [facility] Last Admin: 08/06/16 08:28 Dose: 667 mg Darbepoetin Thomas (Aranesp) 60 mcg SC ONCE ONE Stop: 08/07/16 10:01 Meropenem 500 mg/ Sodium (Chloride) 100 mls @ 100 mls/hr IVPB Q12 [facility] PRN Reason: Protocol Stop: 08/13/16 10:01 Last Admin: 08/06/16 12:46 Dose: 100 mls/hr Daptomycin 570 mg/ Sodium (Chloride) 100 mls @ 200 mls/hr IV Q48H [facility] Stop: 08/10/16 10:01 Last Admin: 08/05/16 11:53 Dose: 200 mls/hr Sodium Bicarbonate 75 meq/ (Sodium Chloride) 1,075 mls @ 80 mls/hr IV .[id number] [facility] Last Admin: 08/06/16 00:36 Dose: 80 mls/hr Sodium Chloride (Sodium Chloride 0.9%) 1,000 mls @ 999 mls/hr IV .Q1H1M [facility] Last Admin: 08/06/16 06:18 Dose: 999 mls/hr Insulin Detemir (Levemir) 10 unit SC DAILY [facility] Last Admin: 08/06/16 12:46 Dose: Not Given Insulin Human Regular (Humulin R High) 0 units SC ACHS [facility] PRN Reason: Protocol Last Admin: 08/06/16 12:44 Dose: Not Given Oxycodone HCl (Oxycodone Immediate Release Tab) 30 mg PO Q6 PRN PRN Reason: Pain, moderate (4-7) Last Admin: 08/06/16 00:36 Dose: 30 mg Polysaccharide Iron Complex (Ferrex-150) 150 mg PO DAILY [facility] Zinc Sulfate (Zinc Sulfate 220 Mg Cap) 220 mg PO DAILY [facility] Last Admin: 08/05/16 11:11 Dose: 220 mg - Labs Labs: 08/06/16 06:40 08/06/16 06:40 PT 11.7 Seconds (9.9-11.8) 08/04/16 20:00 INR 1.08 (0.93-1.08) 08/04/16 20:00 APTT 40.4 Seconds (23.7-30.8) H 08/04/16 20:00 - Constitutional Appears: Non-toxic, No Acute Distress - Head Exam Head Exam: ATRAUMATIC, NORMOCEPHALIC - Eye Exam Eye Exam: EOMI, PERRL - ENT Exam ENT Exam: Mucous Membranes Moist - Neck Exam Neck Exam: Normal Inspection. absent: Lymphadenopathy - Respiratory Exam Respiratory Exam: Clear to Ausculation Bilateral, NORMAL BREATHING PATTERN. absent: Rales, Rhonchi, Wheezes - Cardiovascular Exam Cardiovascular Exam: Tachycardia, REGULAR RHYTHM, +S1, +S2 - GI/Abdominal Exam GI & Abdominal Exam: Soft, Normal Bowel Sounds. absent: Tenderness - Extremities Exam Additional comments: large chronic ulcerations to bilateral lower extremities in multiple stages of healing. wounds are cleaned and dressed. - Neurological Exam Neurological Exam: Alert, Awake, Oriented x3 - Psychiatric Exam Psychiatric exam: Flat Affect - Skin Skin Exam: Dry, Warm Assessment and Plan - Assessment and Plan (Free Text) Assessment: 51 yo female with past medical history of CVA, DM type 2, hypertension, atrial fibrillation, osteomyelitis and HCV admitted for sepsis secondary to infected chronic lower extremity wounds. Xray of left foot reveals signs of osteomyelitis. Sepsis is complicated by urinary tract infection and acute kidney injury on chronic kidney disease. Sepsis secondary to osteomyelitis -continue meropenem, Amikacin -ID foloowing -Pain control with oxycodone 30mg PO q4h. Confirmed medication and dosage from pharmacy. May need to hold as patient is very lethargic this morning. -Blood culture, urine culture, wound culture pending -Procalcitonin pending -Podiatry consulted - Dr. Helton. Will continue with wound care. BKA recommended to patient however she has refused this in the past. - PT consulted. Acute on chronic kidney disease 2/2 sepsis syndrome -IVF hydration - continue Sodium bicarb -Pending urine creatinine, urine sodium, urine eosinophils -Avoid nephrotoxic agents -Renal diet -Nephrology consulted - Dr. Winslow 3Diabetes type 2 -Humulin low dose ISS -Fingersticks ACHS -Hgb A1c pending -Renal/Consistent carb diet Hypertension -Antihypertensives held due to normotension in the ED in the setting of sepsis HCV -HCV viral RNA qualitative pending Hyponatremia -Workup pending: Serum/Urine osmolality, urine creatinine, urine sodium Hypomagnesemia -Monitor and replete as needed DVT prophylaxis -Heparin 5000u SC BID <Dagmar Celis - Last Filed: 08/06/16 18:32> Objective - Vital Signs/Intake and Output Vital Signs (last 24 hours): Temp Pulse Resp BP Pulse Ox 102.9 F H 126 H 19 96/58 L 97 08/06/16 06:00 08/06/16 06:00 08/06/16 06:00 08/06/16 06:00 08/05/16 21:32 Intake and Output: 08/06/16 08/06/16 06:59 18:59 Intake Total 1860 Output Total 0 Balance 1860 - Medications Medications: Current Medications Acetaminophen (Tylenol 325mg Tab) 650 mg PO Q4H PRN PRN Reason: Fever >100.4 F Alprazolam (Xanax) 2 mg PO DAILY PRN; Protocol PRN Reason: Anxiety Ascorbic Acid (Vitamin C 500 Mg Tab) 500 mg PO BID [facility] Last Admin: 08/06/16 17:36 Dose: 500 mg Calcium Acetate (Phoslo) 667 mg PO WM [facility] Last Admin: 08/06/16 17:36 Dose: 667 mg Darbepoetin Thomas (Aranesp) 60 mcg SC ONCE ONE Stop: 08/07/16 10:01 Meropenem 500 mg/ Sodium (Chloride) 100 mls @ 100 mls/hr IVPB Q12 [facility] PRN Reason: Protocol Stop: 08/13/16 10:01 Last Admin: 08/06/16 12:46 Dose: 100 mls/hr Daptomycin 570 mg/ Sodium (Chloride) 100 mls @ 200 mls/hr IV Q48H [facility] Stop: 08/10/16 10:01 Last Admin: 08/05/16 11:53 Dose: 200 mls/hr Sodium Bicarbonate 75 meq/ (Sodium Chloride) 1,075 mls @ 80 mls/hr IV .[id number] [facility] Last Admin: 08/06/16 00:36 Dose: 80 mls/hr Sodium Chloride (Sodium Chloride 0.9%) 1,000 mls @ 999 mls/hr IV .Q1H1M [facility] Last Admin: 08/06/16 06:18 Dose: 999 mls/hr Insulin Detemir (Levemir) 10 unit SC DAILY [facility] Last Admin: 08/06/16 12:46 Dose: Not Given Insulin Human Regular (Humulin R High) 0 units SC ACHS [facility] PRN Reason: Protocol Last Admin: 08/06/16 17:30 Dose: 4 units Oxycodone HCl (Oxycodone Immediate Release Tab) 15 mg PO Q6 PRN PRN Reason: Pain, moderate (4-7) Polysaccharide Iron Complex (Ferrex-150) 150 mg PO DAILY [facility] Last Admin: 08/06/16 13:34 Dose: 150 mg Zinc Sulfate (Zinc Sulfate 220 Mg Cap) 220 mg PO DAILY [facility] Last Admin: 08/06/16 13:34 Dose: 220 mg - Labs Labs: 08/06/16 06:40 08/06/16 06:40 PT 11.7 Seconds (9.9-11.8) 08/04/16 20:00 INR 1.08 (0.93-1.08) 08/04/16 20:00 APTT 40.4 Seconds (23.7-30.8) H 08/04/16 20:00 Attending/Attestation - Attestation I have personally seen and examined this patient.: Yes I have fully participated in the care of the patient.: Yes I have reviewed all pertinent clinical information, including history, physical exam and plan: Yes Notes (Text): 08/06/16 18:19 attending note; Patient seen and examined with the resident. Patient is alert, awake. Patient is a 51 year old female with past medical hsitory of CVA, DM type 2, hypertension, chronic osteomyelitis, PVD HCV, CKD and anemia Is admitted with fevers and chills. Patient has significant swelling of the left lower extremity with osteomyelitis. dressing done by podiatry. Case discussed with Dr. Helton in detail. Recommending left BKA. Patient is not ready for BKA yet. The patient failed IVF antibiotics multiple times. acute on chronic kidney disease; possibly secondary to sepsis/AIN/drug toxicity. Case discussed with nephrology in detail. we will try to avoid nephrotoxin. continue IV fluids with bicarbonate for metabolic acidosis. oliguric renal failure; renal ultrasound requested. Will place a [place] if not able to urinate. Possible neurogenic bladder secondary to diabetes. Anemia; secondary to anemia of chronic disease. No active bleeding. Might need blood transfusion if continues to drop. Got 1 dose of Aranesp. Iron studies ordered.continue by mouth iron. Stool for occult blood ordered. diabetes; adjust insulin. ID evaluation appreciated. History of MRSA ESBL/Pseudomonas in the past. Got 1 dose of amikacin. we will avoid aminoglycoside per nephrology recommendation. Currently on daptomycin and meropenem dose adjusted. Monitor kidney function closely. The possibility of BKA, possibility of dialysis in the future explained to the patient in detail. patient follows up with ROSSANA capps at [place]. 08/06/16 18:32 08/06/16 18:32
--- NOTE | 2016-08-06 13:21 | PN ---
DATE: 08/06/2016 SUBJECTIVE: The patient is currently seen on telemetry. According to the nursing staff, she has mad e little to no urine since arrival into the hospital yesterday. Her BUN and creatinine are mildly el evated and rising. BUN is 43. Her creatinine is up to 4.3, was 3.4 on admission. Her baseline BUN is in the 40s with a baseline creatinine in the 1.7-1.8 range. The patient's antibiotics were adjust ed. She is currently receiving potentially nephrotoxic antibiotics. Urine eosinophils was not sent because patient made no urine. MEDICATIONS: Medication list reviewed. The patient is on amikacin, daptomycin, Ferrex, insulin, Lev jaime, meropenem, oxycodone, PhosLo, IV fluid with sodium bicarbonate at 80 mL an hour, Tylenol p.r.n. , vitamin C, Xanax, zinc. OBJECTIVE: INTAKE AND OUTPUT: Intake 1860, output 0. VITAL SIGNS: Blood pressure is 96/58, pulse is 126, apparent sinus tachycardia. Temperature is 102. 9. Respiratory rate is 19. HEENT: Shows her to be normocephalic, atraumatic. Conjunctivae are pale. Sclerae are nonicteric. NECK: Supple, no neck vein distention. CHEST: Clear to auscultation and percussion. CARDIOVASCULAR: Regular rate and rhythm with soft systolic murmur left lower sternal border. ABDOMEN: Soft. Bowel sounds normal. EXTREMITIES: Show dressings over her lower extremity bilaterally. These were not removed by me. Yvette cha has puffiness and trace edema of her lower extremity. NEUROLOGIC: The patient appears to be alert. No asterixis. IMAGING STUDIES: X-ray of her tibia and fibula show no evidence for direct osteomyelitis. X-ray of her right foot shows no evidence for osteomyelitis. X-ray of her left foot shows possible osteomyeli tis. MICROBIOLOGY: Urines are positive for yeast. Blood cultures are negative at 24 hours. Cultures fro m the wounds are pending. ASSESSMENT: 1. Acute renal failure superimposed on chronic kidney disease stage III. This is in the setting of possible sepsis related to infected wound of her left lower extremity with possible osteomyelitis. T he patient is currently receiving antibiotic therapy, which is potentially nephrotoxic. Her urine ou tput has been essentially nil according to the nursing staff over the last 18-24 hours. I will obtai n a urine ultrasound. In the past, this study has been normal. Urine eosinophil stain is pending to rule out acute interstitial nephritis. It is quite possible the patient has acute tubular necrosis secondary to sepsis. 2. Baseline chronic kidney disease stage III with a baseline creatinine 1.7-1.8 and a history of joelle betic nephropathy. A 24-hour urines were ordered, but these can be done as patient is presently zander ng no urine. 3. Mild hyponatremia secondary to acute renal failure. This corrects closer to normal given her nuzhat vated glucose levels. 4. Worsening metabolic acidosis. The patient will continue IV fluid with sodium bicarbonate. 5. History of anemia, worsening. Her iron saturations were 9%. In light of her possible sepsis, I will not give her IV iron at this point in time. We will use oral iron together with Aranesp. 6. History of secondary hyperparathyroidism. Phosphorus level was 5.0. The patient will continue b soham therapy and renal diet. 7. Past history of interstitial nephritis. The patient in the past had received steroids for treatm ent of interstitial nephritis. 8. Infected lower extremities, left greater than right. Diabetic wounds with possible osteomyelitis . The patient was seen by podiatry and there is a possibility that the patient would be a candidate for amputation procedure. I am very concerned that if she continues receiving potentially nephrotoxi c antibiotic therapy with her urine output essentially nil, she could quite possibly end up on dialys is. This has been discussed with the staff on telemetry and with the patient. PLAN: 1. Continue to monitor accurate I's and O's. 2. Continue IV fluid hydration with sodium bicarbonate. 3. We will need to discuss with infectious disease the possibility of using less nephrotoxic antibio tic therapy. In the past, her cultures were positive for Staphylococcus aureus, Klebsiella and pseud omonas. 4. Try and obtain a urine sample for Jose stain, eosinophil stain to rule out acute interstitial n ephritis. 5. We will follow the patient closely with you in light of the fact that her urine output is poor to nil and she has a rising BUN and creatinine. Nick Law MD cc: [phone] TT: 08/06/2016 13:20:49 Confirmation # [id number] Dictation # [id number]
[2016-08-06] MEDS: Iron Complex Polysacch 150mg Cap PO SCH (13:34)
--- NOTE | 2016-08-06 14:31 | CARD ---
APPROVED REPORT EXAM: Two-dimensional and M-mode echocardiogram with Doppler and color Doppler. INDICATION Infection:Rule out subacute bacterial endocarditis 2D DIMENSIONS Left Atrium (2D)3.9 (1.6-4.0cm)IVSd1.2 (0.7-1.1cm) LVDd4.1 (3.9-5.9cm)PWd1.9 (0.7-1.1cm) LVDs2.8 (2.5-4.0cm)FS (%) 30.9 % LVEF (%)58.9 (>50%) M-Mode DIMENSIONS Aortic Root3.00 (2.2-3.7cm)Aortic Cusp Exc.1.40 (1.5-2.0cm) Aortic Valve AoV Peak Hdihbxyx759.0cm/Juan F Peak GR.12mmHg Mitral Valve MV E Kbcenoca82.9cm/sMV A Hxtitjrx33.5cm/sE/A ratio0.9 TDI E/Lateral E'0.0E/Medial E'0.0 Tricuspid Valve TR Peak [id number]/sRAP [id number] Peak Gr.20mmHg [id number] LEFT VENTRICLE The left ventricle is normal size. There is normal left ventricular wall thickness. The left ventricular function is normal. The left ventricular ejection fraction is within the normal range. There is normal LV segmental wall motion. Transmitral Doppler flow pattern is Grade I-abnormal relaxation pattern. RIGHT VENTRICLE The right ventricle is normal size. There is normal right ventricular wall thickness. The right ventricular systolic function is normal. ATRIA The left atrium size is normal. The right atrium size is normal. AORTIC VALVE The aortic valve is normal in structure. No aortic regurgitation is present. MITRAL VALVE The mitral valve is mildly thickened. No vegitation seen TRICUSPID VALVE The tricuspid valve is normal in structure. There is no tricuspid valve regurgitation noted. GREAT VESSELS The aortic root is normal in size. The IVC is normal in size and collapses >50% with inspiration. PERICARDIAL EFFUSION There is no pericardial effusion. <Conclusion> The left ventricle is normal size. There is normal left ventricular wall thickness. The left ventricular function is normal. The left ventricular ejection fraction is within the normal range. There is normal LV segmental wall motion. The mitral valve is mildly thickened. No vegitation seen
--- NOTE | 2016-08-06 16:18 | US ---
PROCEDURE: Ultrasound of the Kidneys HISTORY: ARF, Anuria COMPARISON: None available. TECHNIQUE: Sonogram of the kidneys. FINDINGS: RIGHT KIDNEY: Measures: 12.4 cm. Normal in size, contour and echogenicity. No stone, solid mass lesion or hydronephrosis visualized. LEFT KIDNEY: Measures: 12.3 cm. Normal in size, contour and echogenicity. No stone, solid mass lesion or hydronephrosis visualized. OTHER FINDINGS: None. IMPRESSION: No hydronephrosis or nephrolithiasis.
[2016-08-07 05:53] LABS: ADD MANUAL DIFF? NO
[2016-08-07 06:05] LABS: BASO # 0.02 K/mm3 (0.0-2.0); BASO % 0.1 % (0.0-3.0); EOS # 0.1 (0.0-0.7); EOS % 0.8 % (1.5-5.0); GRAN # 13.54 (1.4-6.5); GRAN % 78.6 % (50.0-68.0); LYMPH # 2.1 (1.2-3.4); LYMPH % 12.3 % (22.0-35.0); MEAN CELL VOLUME 84.8 fL (80.0-105.0); MEAN CORPUSCULAR HEMOGLOBIN 26.3 pg (25.0-35.0); MEAN PLATELET VOLUME 9.5 fl (7.0-11.0); MONO # 1.4 (0.1-0.6); MONO % 8.2 % (1.0-6.0); PLATELET COUNT 202 10^3/uL (120.0-450.0); RED CELL DISTRIBUTION WIDTH 15.5 % (11.5-14.5); WHITE BLOOD COUNT 17.2 10^3/ul (4.5-11.0)
[2016-08-07 06:10] LABS: BILIRUBIN,TOTAL 0.4 mg/dL (0.2-1.3); MAGNESIUM 1.9 mg/dL (1.7-2.2); PHOSPHOROUS 4.7 mg/dL (2.5-4.5); POTASSIUM 3.6 mmol/L (3.6-5.0); TOTAL PROTEIN 5.6 g/dL (5.8-8.3)
[2016-08-07 06:11] LABS: ALB/GLOB RATIO 0.8 (1.1-1.8)
[2016-08-07 06:12] LABS: HEMATOCRIT 22.9 % (36.0-48.0)
[2016-08-07 06:18] LABS: IRON 21 ug/dL (45-180)
[2016-08-07] MEDS: Insulin Reg-HIGH-Coverage SC SCH ×4 (07:59→22:04)
[2016-08-07] MEDS ORDERED: Darbepoetin Alfa 60 mcg/ml Inj SC ONE (10:00)
--- NOTE | 2016-08-07 10:08 | CP.PCM.PN ---
<Emeterio Lamb - Last Filed: 08/07/16 13:46> Subjective - Date & Time of Evaluation Date of Evaluation: 08/07/16 Time of Evaluation: 10:05 - Subjective Subjective: Patient seen and examined this morning. She is afebrile, denies fever or chills. Inadequate urine output noted. Patient's numerous medical conditions were discussed and the patient show insight into her illness. BKA was discussed with patient as well as with Dr. Helton. The importance of such procedure was stressed to the patient. The patient is going to continue to think about the decision. Patient gave consent to call her sister and discuss her medical condition with her. Objective - Vital Signs/Intake and Output Vital Signs (last 24 hours): Temp Pulse Resp BP Pulse Ox 99 F 91 H 19 117/73 95 08/07/16 06:00 08/07/16 06:00 08/07/16 06:00 08/07/16 06:00 08/07/16 06:00 Intake and Output: 08/07/16 08/07/16 06:59 18:59 Intake Total 480 Output Total 750 Balance -270 - Medications Medications: Current Medications Alprazolam (Xanax) 2 mg PO DAILY PRN; Protocol PRN Reason: Anxiety Ascorbic Acid (Vitamin C 500 Mg Tab) 500 mg PO BID [facility] Last Admin: 08/06/16 17:36 Dose: 500 mg Calcium Acetate (Phoslo) 667 mg PO WM [facility] Last Admin: 08/07/16 08:21 Dose: 667 mg Daptomycin 570 mg/ Sodium (Chloride) 100 mls @ 200 mls/hr IV Q48H [facility] Stop: 08/10/16 10:01 Last Admin: 08/05/16 11:53 Dose: 200 mls/hr Sodium Bicarbonate 75 meq/ (Sodium Chloride) 1,075 mls @ 80 mls/hr IV .[id number] [facility] Last Admin: 08/06/16 00:36 Dose: 80 mls/hr Sodium Chloride (Sodium Chloride 0.9%) 1,000 mls @ 999 mls/hr IV .[id number] [facility] Last Admin: 08/06/16 06:18 Dose: 999 mls/hr Meropenem 500 mg/ Sodium (Chloride) 100 mls @ 100 mls/hr IVPB DAILY [facility] PRN Reason: Protocol Stop: 08/15/16 10:01 Insulin Detemir (Levemir) 10 unit SC DAILY [facility] Last Admin: 08/06/16 12:46 Dose: Not Given Insulin Human Regular (Humulin R High) 0 units SC ACHS [facility] PRN Reason: Protocol Last Admin: 08/07/16 07:59 Dose: Not Given Oxycodone HCl (Oxycodone Immediate Release Tab) 15 mg PO Q6 PRN PRN Reason: Pain, moderate (4-7) Polysaccharide Iron Complex (Ferrex-150) 150 mg PO DAILY [facility] Last Admin: 08/06/16 13:34 Dose: 150 mg Zinc Sulfate (Zinc Sulfate 220 Mg Cap) 220 mg PO DAILY [facility] Last Admin: 08/06/16 13:34 Dose: 220 mg - Labs Labs: 08/07/16 05:45 08/07/16 05:45 PT 11.7 Seconds (9.9-11.8) 08/04/16 20:00 INR 1.08 (0.93-1.08) 08/04/16 20:00 APTT 40.4 Seconds (23.7-30.8) H 08/04/16 20:00 - Constitutional Appears: Non-toxic, No Acute Distress - Head Exam Head Exam: ATRAUMATIC, NORMOCEPHALIC - Eye Exam Eye Exam: EOMI, PERRL - ENT Exam ENT Exam: Mucous Membranes Moist - Neck Exam Neck Exam: Full ROM, Normal Inspection - Respiratory Exam Respiratory Exam: Clear to Ausculation Bilateral, NORMAL BREATHING PATTERN. absent: Rales, Rhonchi - Cardiovascular Exam Cardiovascular Exam: REGULAR RHYTHM, +S1, +S2 - GI/Abdominal Exam GI & Abdominal Exam: Soft, Normal Bowel Sounds. absent: Tenderness - Extremities Exam Extremities Exam: Pedal Edema Additional comments: left distal leg with large stage 3 ulceration to posterior-medial leg. Right distal leg with posterior chronic wound. - Neurological Exam Neurological Exam: Alert, Awake, Oriented x3 - Psychiatric Exam Psychiatric exam: Anxious, Depressed - Skin Skin Exam: Dry, Warm Assessment and Plan - Assessment and Plan (Free Text) Assessment: 51 yo female with past medical history of CVA, DM type 2, hypertension, atrial fibrillation, osteomyelitis and HCV admitted for sepsis secondary to infected chronic lower extremity wounds. Xray of left foot reveals signs of osteomyelitis. Sepsis is complicated by urinary tract infection and acute kidney injury on chronic kidney disease. Renal function continues to deteriorate with minimal urine output. Sepsis secondary to osteomyelitis - discussed need for BKA with patient. Dr. Sanchez consulted. Patient initially refused procedure but is now considering. - Daptomycin 570mg q48hr, Merrem 500mg qdaily -ID following -Pain control with oxycodone 30mg PO q4h. Confirmed medication and dosage from pharmacy. May need to hold as patient is very lethargic this morning. - dressings changed by podiatry daily. Acute on chronic kidney disease 2/2 sepsis syndrome -IVF hydration - continue Sodium bicarb - continuous I/O - renal dose abx -Renal diet -Nephrology consulted - Dr. Winslow Diabetes type 2 -Humulin low dose ISS -Fingersticks ACHS -Hgb A1c pending -Renal/Consistent carb diet Hypertension -Antihypertensives held due to normotension in the ED in the setting of sepsis HCV -HCV viral RNA qualitative pending DVT prophylaxis -Heparin 5000u SC BID <Dagmar Celis - Last Filed: 08/07/16 14:07> Objective - Vital Signs/Intake and Output Vital Signs (last 24 hours): Temp Pulse Resp BP Pulse Ox 98.2 F 92 H 18 151/81 H 95 08/07/16 13:10 08/07/16 13:10 08/07/16 13:10 08/07/16 13:10 08/07/16 06:00 Intake and Output: 08/07/16 08/07/16 06:59 18:59 Intake Total 480 Output Total 750 Balance -270 - Medications Medications: Current Medications Alprazolam (Xanax) 2 mg PO DAILY PRN; Protocol PRN Reason: Anxiety Ascorbic Acid (Vitamin C 500 Mg Tab) 500 mg PO BID [facility] Last Admin: 08/07/16 11:25 Dose: 500 mg Calcium Acetate (Phoslo) 667 mg PO WM [facility] Last Admin: 08/07/16 11:25 Dose: 667 mg Famotidine (Pepcid) 40 mg PO HS [facility] Heparin Sodium (Porcine) (Heparin) 5,000 units SC Q12 [facility] PRN Reason: Protocol Daptomycin 570 mg/ Sodium (Chloride) 100 mls @ 200 mls/hr IV Q48H [facility] Stop: 08/10/16 10:01 Last Admin: 08/05/16 11:53 Dose: 200 mls/hr Sodium Bicarbonate 75 meq/ (Sodium Chloride) 1,075 mls @ 80 mls/hr IV .[id number] [facility] Last Admin: 08/06/16 00:36 Dose: 80 mls/hr Meropenem 500 mg/ Sodium (Chloride) 100 mls @ 100 mls/hr IVPB DAILY [facility] PRN Reason: Protocol Stop: 08/15/16 10:01 Last Admin: 08/07/16 11:34 Dose: 100 mls/hr Insulin Detemir (Levemir) 10 unit SC DAILY [facility] Last Admin: 08/07/16 11:26 Dose: 10 unit Insulin Human Regular (Humulin R High) 0 units SC ACHS [facility] PRN Reason: Protocol Last Admin: 08/07/16 11:56 Dose: 2 units Oxycodone HCl (Oxycodone Immediate Release Tab) 15 mg PO Q6 PRN PRN Reason: Pain, moderate (4-7) Polysaccharide Iron Complex (Ferrex-150) 150 mg PO DAILY [facility] Last Admin: 08/07/16 11:25 Dose: 150 mg Zinc Sulfate (Zinc Sulfate 220 Mg Cap) 220 mg PO DAILY [facility] Last Admin: 08/07/16 13:05 Dose: 220 mg - Labs Labs: 08/07/16 05:45 08/07/16 05:45 PT 11.7 Seconds (9.9-11.8) 08/04/16 20:00 INR 1.08 (0.93-1.08) 08/04/16 20:00 APTT 40.4 Seconds (23.7-30.8) H 08/04/16 20:00 Attending/Attestation - Attestation I have personally seen and examined this patient.: Yes I have fully participated in the care of the patient.: Yes I have reviewed all pertinent clinical information, including history, physical exam and plan: Yes Notes (Text): 08/07/16 14:04 attending note; Patient seen and examined with the resident and Dr. Helton today. Patient is a 51 year old female with past medical hsitory of CVA, DM type 2, hypertension, chronic osteomyelitis, PVD HCV, CKD and anemia Is admitted with left lower extremity osteomyelitis. dressing done by podiatry. Recommending left BKA. Patient is not ready for BKA yet. Dr. Sanchez consulted. acute on chronic kidney disease;creatinine is 5.1 today. Slowly increasing. possibly secondary to sepsis/AIN/ATN/drug toxicity. Case discussed with nephrology in detail. we will try to avoid nephrotoxin. continue IV fluids with bicarbonate for metabolic acidosis. oliguric renal failure; renal ultrasound without hydronephrosis. Urine output is increasing. Has segundo catheter in place. Anemia; secondary to anemia of chronic disease. No active bleeding. 2 units PRBC transfusion ordered. Got 1 dose of Aranesp. Iron studies ordered.continue by mouth iron diabetes; adjust insulin. ID evaluation appreciated. History of MRSA ESBL/Pseudomonas in the past. Currently on daptomycin and meropenem dose adjusted. Monitor kidney function closely. The possibility of BKA, possibility of dialysis in the future explained to the patient in detail. patient follows up with ROSSANA capps at [place].
[2016-08-07] MEDS: Iron Complex Polysacch 150mg Cap PO SCH (11:25)
[2016-08-07] MEDS: Insulin Detemir 100 units/ml Vial (Levemir) SC SCH (11:26)
[2016-08-07] MEDS: Meropenem 500 MG in Sodium Chloride 0.9% 100 ML IVPB SCH (11:34)
--- NOTE | 2016-08-07 11:50 | CP.PCM.PN ---
<Harper Dee - Last Filed: 08/07/16 11:47> Subjective - Date & Time of Evaluation Date of Evaluation: 08/07/16 Time of Evaluation: 09:00 - Subjective Subjective: 51 y.o female seen at bedside with attending Dr. Helton for bilateral heel ulcerations and left leg ulcerations. Patient denies any acute events overnight. She states that there is pain with pressure on the wounds. Dressings is c/d/i without strikethrough. Patient denies n/f/v/d/c/sob. Objective - Vital Signs/Intake and Output Vital Signs (last 24 hours): Temp Pulse Resp BP Pulse Ox 99 F 91 H 19 117/73 95 08/07/16 06:00 08/07/16 06:00 08/07/16 06:00 08/07/16 06:00 08/07/16 06:00 Intake and Output: 08/07/16 08/07/16 06:59 18:59 Intake Total 480 Output Total 750 Balance -270 - Medications Medications: Current Medications Alprazolam (Xanax) 2 mg PO DAILY PRN; Protocol PRN Reason: Anxiety Ascorbic Acid (Vitamin C 500 Mg Tab) 500 mg PO BID [facility] Last Admin: 08/07/16 11:25 Dose: 500 mg Calcium Acetate (Phoslo) 667 mg PO WM [facility] Last Admin: 08/07/16 11:25 Dose: 667 mg Daptomycin 570 mg/ Sodium (Chloride) 100 mls @ 200 mls/hr IV Q48H [facility] Stop: 08/10/16 10:01 Last Admin: 08/05/16 11:53 Dose: 200 mls/hr Sodium Bicarbonate 75 meq/ (Sodium Chloride) 1,075 mls @ 80 mls/hr IV .[id number] [facility] Last Admin: 08/06/16 00:36 Dose: 80 mls/hr Meropenem 500 mg/ Sodium (Chloride) 100 mls @ 100 mls/hr IVPB DAILY [facility] PRN Reason: Protocol Stop: 08/15/16 10:01 Last Admin: 08/07/16 11:34 Dose: 100 mls/hr Insulin Detemir (Levemir) 10 unit SC DAILY [facility] Last Admin: 08/07/16 11:26 Dose: 10 unit Insulin Human Regular (Humulin R High) 0 units SC ACHS [facility] PRN Reason: Protocol Last Admin: 08/07/16 07:59 Dose: Not Given Oxycodone HCl (Oxycodone Immediate Release Tab) 15 mg PO Q6 PRN PRN Reason: Pain, moderate (4-7) Polysaccharide Iron Complex (Ferrex-150) 150 mg PO DAILY [facility] Last Admin: 08/07/16 11:25 Dose: 150 mg Zinc Sulfate (Zinc Sulfate 220 Mg Cap) 220 mg PO DAILY [facility] Last Admin: 08/06/16 13:34 Dose: 220 mg - Labs Labs: 08/07/16 05:45 08/07/16 05:45 PT 11.7 Seconds (9.9-11.8) 08/04/16 20:00 INR 1.08 (0.93-1.08) 08/04/16 20:00 APTT 40.4 Seconds (23.7-30.8) H 08/04/16 20:00 - Constitutional Appears: Well, Non-toxic, No Acute Distress - Extremities Exam Additional comments: Bilateral lower extremity examination: Vascular: DP pulse faintly palpable; PT pulse non-palpable bilaterally; capillary fill time 3 sec to all digits; temperature gradient is WNL, no peripheral edema noted bilaterally Neuro: protective sensation grossly diminished bilaterally Derm: Right- full-thickness heel ulcer present at plantar medial aspect of the heel; the wound base consists of fibrogranular tissue; moderate serous drainage; malodor noted; no purulence, negative for probe to bone, no clinical signs of infection noted Left- extensive ulceration noted starting from the plantar midfoot and extending proximally to the posterior aspect of the lower leg in the region of the distal Achilles tendon; Wound base (mixture of granular and fibrous) with moderate serosanguinous drainage present; mild odor noted; no purulence, negative for probe to bone; no evidence of cellulitis present at this time - Neurological Exam Neurological Exam: Alert, Awake, Oriented x3 - Psychiatric Exam Psychiatric exam: Normal Affect, Normal Mood Assessment and Plan - Assessment and Plan (Free Text) Assessment: 50 y/o female patient with Schwartz Grade 3 Left lower extremity ulcer and Schwartz Grade 2 Right heel ulceration, secondary to diabetes. Plan: Patient was seen and evaluated at bedside with attending,Dr. Helton Labs and vitals reviewed: WBC 17.2; afebrile Bilateral wounds were cleansed with sterile saline-soaked gauze bilateral LE wounds were dressed with xeroform, DSD, kerlix wound cx : pending cont. IV abx as per ID x rays show OM of calcaneus of left foot, no acute signs of right foot OM discussed in detail with patient the need for a below knee amputation. discussed the severity of the infection and reasons she has been becoming septic discussed in detail with patient that she will be able to ambulate again with the BKA and a prosthetic deviced discussed with patient to consult psychiatrist discussed the risks, benefits, complications of surgical intervention - patient will think about it podiatry will continue to follow <Casie Helton - Last Filed: 08/23/16 14:39> Objective - Vital Signs/Intake and Output Vital Signs (last 24 hours): Temp Pulse Resp BP Pulse Ox 98.8 F 97 H 19 179/93 H 93 L 08/15/16 00:09 08/15/16 01:51 08/15/16 00:09 08/15/16 01:25 08/15/16 00:09 - Labs Labs: 08/14/16 06:10 08/14/16 06:10 PT 11.1 Seconds (9.9-11.8) 08/13/16 07:00 INR 1.03 (0.93-1.08) 08/13/16 07:00 APTT 33.9 Seconds (23.7-30.8) H 08/13/16 07:00 Attending/Attestation - Attestation I have personally seen and examined this patient.: Yes I have fully participated in the care of the patient.: Yes I have reviewed all pertinent clinical information, including history, physical exam and plan: Yes
--- NOTE | 2016-08-07 12:03 | PN ---
DATE: 08/07/2016 SUBJECTIVE: The patient is currently seen on telemetry. The patient has been followed closely by in fectious disease, by podiatry. Podiatry is encouraging her to have a procedure done, to possibly hav e an amputation of her left lower extremity in light of the poorly healing diabetic wounds. The ramses ent has received multiple antibiotics over the last several months in multiple hospitals and it appea rs that the antibiotics are affecting her kidney function adversely. Her BUN and creatinine today ar e up to 48 and 5.1. Her baseline creatinine is in the 1.8 range. The patient remains acidotic, rece iving sodium bicarbonate supplements. She is on multiple antibiotics. MEDICATIONS: Reviewed. The patient is on daptomycin, oral iron, insulin, meropenem, oxycodone, Phos Lo, IV fluid with sodium bicarbonate at 80 mL an hour, vitamin C, Xanax, zinc. She received Aranesp yesterday. OBJECTIVE: INTAKE AND OUTPUT: Intake 480, output 750. VITAL SIGNS: Blood pressure 117/73, temperature 99, T-max was 100.4 in the last 24 hours. Respirato ry rate 19 with a pulse of 91. HEENT: Shows her to be normocephalic, atraumatic. Conjunctivae are pale. Sclerae are nonicteric. NECK: Supple, no neck vein distention. CHEST: Clear to auscultation and percussion. CARDIOVASCULAR: Regular rate and rhythm with soft systolic murmur, left lower sternal border. ABDOMEN: Soft. Bowel sounds normal. EXTREMITIES: Show decreased edema of her lower extremity bilaterally. She has dressings over her le ft and right lower extremities. LABORATORY DATA AND IMAGING: X-rays of her lower extremity showed possible osteomyelitis of her left foot. Abdominal ultrasound done yesterday with attention to her kidneys showed 2 normal kidneys wit h no hydronephrosis, normal size and normal echogenicity. Labs: CBC: White blood cell count 17.2 w ith a hemoglobin of 7.1, platelet count 202,000. Chemistries: Sodium is down to 128, BUN 48 with a creatinine of 5.1, CO2 is 16. The patient has an anion gap of 12. Iron saturations were low at 17%. Calcium is 8.0 with a phosphorus of 4.7. Microbiology: Urine is positive for yeast. Blood cultur es are negative at 48 hours. Wound cultures are negative at 24 hours. ASSESSMENT: 1. Acute renal failure superimposed on chronic kidney disease stage III. This is in the setting of possible sepsis, osteomyelitis of her left lower extremity and poorly healing wounds. Previously, th e patient had infections with Staphylococcus aureus, Klebsiella and pseudomonas. She is currently be ing treated in coverage for all of these virulent organisms. Present cultures are negative. It has been explained to the patient by multiple consultants that the antibiotics are likely causing her kid shayna function to deteriorate. The patient is being evaluated for possible amputation of her left lowe r extremity. She is unwilling to consider this option at this point in time. I did explain to her t hat, the longer she stays on these antibiotics, the longer her infection is not treated, the better c homero she has of destroying her kidneys and needing to start dialysis. The patient remains acidotic. We will continue her on IV fluid with sodium bicarbonate. Her renal ultrasound showed no evidence for obstructive uropathy. 2. Hyponatremia. This is worsening in the setting of acute renal failure. With restarting her back on isotonic fluids, this will likely stabilize. 3. Metabolic acidosis, stable. The patient will continue IV fluid with sodium bicarbonate. 4. History of anemia. Hemoglobin is down to 7.1. The patient will likely be transfused several uni ts of blood today. 5. History of secondary hyperparathyroidism. The patient's phosphorus level is 4.7, down from 5.0. The patient remains on binders. 6. Past history of interstitial nephritis. Urine Jose stain done yesterday was negative. 7. Lower extremity diabetic wounds, ulcerations and possible osteomyelitis of her left foot. The pa tient will likely need a prolonged course of antibiotic therapy. PLAN: 1. Discussed with hospitalist in detail. We will all try to convince patient to have an amputation of her left lower extremity. 2. For right now, continue present antibiotic therapy using the least nephrotoxic combination of med ications. 3. No evidence for interstitial nephritis. Her urine Jose stain is negative. 4. Agree with blood transfusions. 5. Continue renal diet and binder therapy. 6. Continue to monitor labs on a daily basis. 7. I did discuss with the patient the possible need for dialysis should her kidney function continue to worsen. Nick Law MD cc: [id number] TT: 08/07/2016 12:02:49 Confirmation # [id number] Dictation # [id number]
--- NOTE | 2016-08-07 12:27 | CP.PCM.CON ---
History of Present Illness - History of Present Illness History of Present Illness: Surgery: Dr. Sanchez Reason for consult: BKA evaluation CC: leg wounds, fever, chills, weakness HPI: Patient is a 51 y/o female w/ bilateral chronic nonhealing leg wounds who present for evaluation of f/c and weakness. Patient found to have sepsis most likely 2/2 OM of the left heal. Patient known to podiatry service as she is evaluated weekly for wound care. She states she is currently undergoing hyperbaric O2 therapy. She states she hasn't noticed much improvement in the wounds. She claims bilateral legs wounds have been present for at least three years. Throughout that time span she has been hospitalized 4-5 times for treatment of LLE OM in which she received weeks of antibiotics. She reports undergoing a vascular procedure to help with blood flow to the LLE about 2-3 years ago as well although she is not sure exactly what was performed. She believes some vessel ballooning as well as a arterial bypass was done. PMH: CVA, DM, HTN, obesity, afib,OM left heal, and HCV PSH: wound debridements as well as "vascular procedure to LLE, possible bypass and ballooning", cholecystectomy Social Hx: admits to tobacco use, denies ETOH or drug abuse PMD: Dr. Terence Villarreal Criminal Psychologist: Dr. Helton Review of Systems - Review of Systems All systems: reviewed and no additional remarkable complaints except Review of Systems: unless stated in HPI Past Patient History - Infectious Disease Hx of Infectious Diseases: None - Past Social History Smoking Status: Never Smoked - CARDIAC Hx Cardiac Disorders: Yes Hx Hypertension: Yes - PULMONARY Hx Respiratory Disorders: No - NEUROLOGICAL Hx Neurological Disorder: Yes HX Cerebrovascular Accident: Yes - HEENT Hx HEENT Problems: No - RENAL Hx Chronic Kidney Disease: Yes Other/Comment: Renal insufficiency - ENDOCRINE/METABOLIC Hx Endocrine Disorders: Yes Hx Diabetes Mellitus Type 2: Yes - HEMATOLOGICAL/ONCOLOGICAL Hx Blood Disorders: Yes Other/Comment: Leukocytosis; bacteremia - INTEGUMENTARY Hx Dermatological Problems: Yes Other/Comment: Cellulitis - MUSCULOSKELETAL/RHEUMATOLOGICAL Hx Falls: Yes - GASTROINTESTINAL Hx Gastrointestinal Disorders: No - GENITOURINARY/GYNECOLOGICAL Hx Genitourinary Disorders: No - PSYCHIATRIC Hx Psychophysiologic Disorder: No Hx Substance Use: No - SURGICAL HISTORY Hx Cholecystectomy: Yes - ANESTHESIA Hx Anesthesia Reactions: No Hx Malignant Hyperthermia: No Meds Allergies/Adverse Reactions: Allergies Allergy/AdvReac Type Severity Reaction Status Date / Time dominique Allergy Intermediate RASH Verified 01/22/16 11:44 peanut Allergy Unknown RASH Verified 01/22/16 11:44 acetaminophen [From Vicodin] Allergy RASH Verified 01/22/16 11:44 almond Allergy ANAPHYLAXIS Verified 01/22/16 11:44 hydrocodone bitartrate Allergy RASH Verified 01/22/16 11:44 [From Vicodin] hydromorphone HCl Allergy RASH Verified 01/22/16 11:44 [From Dilaudid] linezolid Allergy RASH Verified 01/22/16 11:44 morphine Allergy RASH Verified 01/22/16 11:44 Penicillins Allergy ANAPHYLAXIS Verified 08/04/16 20:21 seafood Allergy ANAPHYLAXIS Uncoded 01/22/16 11:44 - Medications Medications: Current Medications Alprazolam (Xanax) 2 mg PO DAILY PRN; Protocol PRN Reason: Anxiety Ascorbic Acid (Vitamin C 500 Mg Tab) 500 mg PO BID [facility] Last Admin: 08/07/16 11:25 Dose: 500 mg Calcium Acetate (Phoslo) 667 mg PO WM [facility] Last Admin: 08/07/16 11:25 Dose: 667 mg Daptomycin 570 mg/ Sodium (Chloride) 100 mls @ 200 mls/hr IV Q48H [facility] Stop: 08/10/16 10:01 Last Admin: 08/05/16 11:53 Dose: 200 mls/hr Sodium Bicarbonate 75 meq/ (Sodium Chloride) 1,075 mls @ 80 mls/hr IV .[id number] [facility] Last Admin: 08/06/16 00:36 Dose: 80 mls/hr Meropenem 500 mg/ Sodium (Chloride) 100 mls @ 100 mls/hr IVPB DAILY [facility] PRN Reason: Protocol Stop: 08/15/16 10:01 Last Admin: 08/07/16 11:34 Dose: 100 mls/hr Insulin Detemir (Levemir) 10 unit SC DAILY [facility] Last Admin: 08/07/16 11:26 Dose: 10 unit Insulin Human Regular (Humulin R High) 0 units SC ACHS [facility] PRN Reason: Protocol Last Admin: 08/07/16 11:56 Dose: 2 units Oxycodone HCl (Oxycodone Immediate Release Tab) 15 mg PO Q6 PRN PRN Reason: Pain, moderate (4-7) Polysaccharide Iron Complex (Ferrex-150) 150 mg PO DAILY [facility] Last Admin: 08/07/16 11:25 Dose: 150 mg Zinc Sulfate (Zinc Sulfate 220 Mg Cap) 220 mg PO DAILY [facility] Last Admin: 08/06/16 13:34 Dose: 220 mg Physical Exam - Constitutional Appears: Non-toxic, No Acute Distress - Head Exam Head Exam: ATRAUMATIC, NORMOCEPHALIC - Eye Exam Eye Exam: EOMI - ENT Exam ENT Exam: Mucous Membranes Moist - Respiratory Exam Respiratory Exam: NORMAL BREATHING PATTERN. absent: Respiratory Distress - Cardiovascular Exam Cardiovascular Exam: Irregular Rhythm. absent: Tachycardia - GI/Abdominal Exam GI & Abdominal Exam: Soft. absent: Distended, Tenderness - Rectal Exam Rectal Exam: Deferred - Extremities Exam Additional comments: LLE wound spanning up to proximal 1/3 of calf with depth to muscle, dressing CDI. LLE warm to touch. DP and femoral signals dopplerable on left side. Left medial above the knee 4 inch scar, well healed, most likely from vascular intervention, bypass?. Popliteal pulse,left, not appreciated via doppler or plapation. RLE heal wrapped with gauze dressing CDI. - Neurological Exam Neurological exam: Alert, Oriented x3 - Psychiatric Exam Psychiatric exam: Normal Affect, Normal Mood - Skin Skin Exam: Dry, Intact, Normal Color, Warm Results - Vital Signs Recent Vital Signs: Last Vital Signs Temp 98.7 F 08/07/16 12:00 Pulse 90 08/07/16 12:00 Resp 20 08/07/16 12:00 BP 132/73 08/07/16 12:00 Pulse Ox 95 08/07/16 06:00 - Labs Result Diagrams: 08/07/16 05:45 08/07/16 05:45 Labs: Laboratory Results - last 24 hr 08/06/16 08/06/16 08/06/16 16:57 17:15 21:26 WBC RBC Hgb Hct MCV MCH MCHC RDW Plt Count MPV Gran % Lymph % (Auto) [place] % (Auto) Eos % (Auto) Baso % (Auto) Gran # Lymph # [place] # Eos # Baso # Sodium Potassium Chloride Carbon Dioxide Anion Gap BUN Creatinine Est GFR ( Amer) Est GFR (Non-Af Amer) POC Glucose (mg/dL) 218 H 110 Random Glucose Calcium Phosphorus Magnesium Iron TIBC % Saturation Total Bilirubin AST ALT Alkaline Phosphatase Total Protein Albumin Globulin Albumin/Globulin Ratio Urine Eosinophils Negative Blood Type Antibody Screen Crossmatch BBK History Checked 08/07/16 08/07/16 08/07/16 05:30 05:45 05:45 WBC 17.2 H RBC 2.70 L Hgb 7.1 L Hct 22.9 L MCV 84.8 MCH 26.3 MCHC 31.0 RDW 15.5 H Plt Count 202 MPV 9.5 Gran % 78.6 H Lymph % (Auto) 12.3 L [place] % (Auto) 8.2 H Eos % (Auto) 0.8 L Baso % (Auto) 0.1 Gran # 13.54 H Lymph # 2.1 [place] # 1.4 H Eos # 0.1 Baso # 0.02 Sodium 128 L Potassium 3.6 Chloride 104 Carbon Dioxide 16 L Anion Gap 12 BUN 48 H Creatinine 5.1 H Est GFR ( Amer) 11 Est GFR (Non-Af Amer) 9 POC Glucose (mg/dL) Random Glucose 97 Calcium 8.0 L Phosphorus 4.7 H Magnesium 1.9 Iron TIBC % Saturation Total Bilirubin 0.4 AST 23 ALT 24 Alkaline Phosphatase 254 H Total Protein 5.6 L Albumin 2.4 L Globulin 3.2 Albumin/Globulin Ratio 0.8 L Urine Eosinophils Blood Type O POSITIVE Antibody Screen Negative Crossmatch See Detail BBK History Checked Patient has bt 08/07/16 08/07/16 08/07/16 05:45 07:29 11:38 WBC RBC Hgb Hct MCV MCH MCHC RDW Plt Count MPV Gran % Lymph % (Auto) [place] % (Auto) Eos % (Auto) Baso % (Auto) Gran # Lymph # [place] # Eos # Baso # Sodium Potassium Chloride Carbon Dioxide Anion Gap BUN Creatinine Est GFR ( Amer) Est GFR (Non-Af Amer) POC Glucose (mg/dL) 122 H 158 H Random Glucose Calcium Phosphorus Magnesium Iron 21 L TIBC 126 L % Saturation 17 L Total Bilirubin AST ALT Alkaline Phosphatase Total Protein Albumin Globulin Albumin/Globulin Ratio Urine Eosinophils Blood Type Antibody Screen Crossmatch BBK History Checked Assessment & Plan - Assessment and Plan (Free Text) Assessment: 51 y/o female w/ sepsis 2/2 nonhealing left LE wound w/ OM of the Left heal Plan: -discussed with patient option of BKA -she states she would like to think about it -cont abx -wound care per podiatry -will d/w Dr. Sanchez, further recs per him AKWhite PGY1
--- NOTE | 2016-08-07 15:16 | US ---
HISTORY: Leg pain and swelling. Evaluate for DVT PHYSICIAN(S): Rajesh Bob MD. TECHNIQUE: Duplex sonography and color-flow Doppler with graded compression were used to evaluate the deep venous systems of both lower extremities. The exam is limited by body habitus and edema. Eft tibial veins are not evaluated due to bandages. FINDINGS: The visualized deep venous systems of both lower extremities are sonographically normal and compressible. Normal wave forms and augmentation are seen. There is no sonographic evidence for deep venous thrombosis in the visualized segments of both lower extremities. IMPRESSION: No sonographic evidence for deep venous thrombosis in the visualized segments of both lower extremities. Limited study.
--- NOTE | 2016-08-07 16:00 | PN ---
DATE: 08/07/2016 The patient is in bed in no acute distress, nontoxic. PHYSICAL EXAMINATION: VITAL SIGNS: Temperature is 98, blood pressure is 150/80, respiratory rate of 20. HEENT: Unremarkable. NECK: Supple. LUNGS: Decreased breath sounds. HEART: Normal S1, S2. ABDOMEN: Soft. LABORATORY EXAMINATION: Reveals a white count of 17,200. Hemoglobin of 7, platelets of 202. Chemis tries are noted and a BUN of 48, creatinine of 5.1. Procalcitonin is 12.14. Microbiology reveals ye ast in the urine. Blood cultures are negative. Left foot cultures are no growth. Review of orders reveals the patient to be on daptomycin and meropenem. An MRI is pending. The ramses ent had Dopplers of the lower extremities. ASSESSMENT AND PLAN: A 51-year-old female seen early this morning in room 261, bed 2 with sepsis to the left foot skin and skin structure infection, probable osteomyelitis. Left calyces seen on x-ray. History of left foot skin and skin structure infection, osteomyelitis, history of infection with m ethicillin-resistant Staphylococcus aureus extended-spectrum beta-lactamase Klebsiella multidrug resi stant pseudomonas, history of methicillin-resistant Staphylococcus aureus bacteremia in a patient wit h chronic renal failure and left leg osteomyelitis and leukocytosis. Probably systemic steroid use. Currently on daptomycin, meropenem day #3 and waiting for the MRI results. We will make further rec ommendations. Dr. Tan's consultation is reviewed. The patient is tentatively booked for below-the -knee amputation on the left on Thursday, 08/11 pending cardiac and medical clearance. Edgard Hensley MD cc: [phone] TT: 08/07/2016 15:59:30 Confirmation # [id number] Dictation # [id number] sn
[2016-08-08] MEDS: oxyCODONE 30 mg Immediate Release Tab PO PRN (03:23)
[2016-08-08 06:12] LABS: ADD MANUAL DIFF? NO
[2016-08-08 06:28] LABS: ALB/GLOB RATIO 0.7 (1.1-1.8); BILIRUBIN,TOTAL 0.4 mg/dL (0.2-1.3); CALCIUM 8.2 mg/dL (8.4-10.5); MAGNESIUM 1.9 mg/dL (1.7-2.2); PHOSPHOROUS 5.4 mg/dL (2.5-4.5); POTASSIUM 3.7 mmol/L (3.6-5.0); TOTAL PROTEIN 6.2 g/dL (5.8-8.3)
[2016-08-08 06:32] LABS: BASO # 0.02 K/mm3 (0.0-2.0); BASO % 0.1 % (0.0-3.0); EOS # 0.2 (0.0-0.7); EOS % 1.2 % (1.5-5.0); GRAN # 11.24 (1.4-6.5); GRAN % 78.6 % (50.0-68.0); HEMATOCRIT 25.5 % (36.0-48.0); LYMPH # 1.5 (1.2-3.4); LYMPH % 10.7 % (22.0-35.0); MEAN CELL VOLUME 84.2 fL (80.0-105.0); MEAN CORPUSCULAR HEMOGLOBIN 27.4 pg (25.0-35.0); MEAN CORPUSCULAR HGB CONC 32.5 g/dl (31.0-37.0); MEAN PLATELET VOLUME 9.5 fl (7.0-11.0); MONO # 1.3 (0.1-0.6); MONO % 9.4 % (1.0-6.0); PLATELET COUNT 220 10^3/uL (120.0-450.0); RED CELL DISTRIBUTION WIDTH 15.3 % (11.5-14.5); WHITE BLOOD COUNT 14.3 10^3/ul (4.5-11.0)
[2016-08-08 07:08] LABS: URINE COLLECTION TIME 24 HOURS
[2016-08-08] MEDS: Insulin Reg-HIGH-Coverage SC SCH ×4 (08:02→22:02)
--- NOTE | 2016-08-08 08:24 | CP.PCM.PN ---
Subjective - Date & Time of Evaluation Date of Evaluation: 08/08/16 Time of Evaluation: 08:21 - Subjective Subjective: Surgery: Dr. Sanchez Patient complains of fever/chills overnight. She states she is agreeable to BKA. She complains of pain in the leg. Tolerating diet. Per nursing no fevers overnight. Objective - Vital Signs/Intake and Output Vital Signs (last 24 hours): Temp Pulse Resp BP Pulse Ox 98.3 F 91 H 19 131/71 97 08/08/16 06:00 08/08/16 06:00 08/08/16 06:00 08/08/16 06:00 08/08/16 06:00 Intake and Output: 08/08/16 08/08/16 06:59 18:59 Intake Total 240 Output Total 200 Balance 40 - Medications Medications: Current Medications Alprazolam (Xanax) 2 mg PO DAILY PRN; Protocol PRN Reason: Anxiety Last Admin: 08/08/16 03:22 Dose: 2 mg Ascorbic Acid (Vitamin C 500 Mg Tab) 500 mg PO BID [facility] Last Admin: 08/07/16 18:08 Dose: 500 mg Calcium Acetate (Phoslo) 667 mg PO WM [facility] Last Admin: 08/08/16 08:02 Dose: 667 mg Famotidine (Pepcid) 40 mg PO HS [facility] Last Admin: 08/07/16 22:30 Dose: 40 mg Heparin Sodium (Porcine) (Heparin) 5,000 units SC Q12 [facility] PRN Reason: Protocol Last Admin: 08/07/16 22:30 Dose: 5,000 units Daptomycin 570 mg/ Sodium (Chloride) 100 mls @ 200 mls/hr IV Q48H [facility] Stop: 08/10/16 10:01 Last Admin: 08/07/16 18:09 Dose: 200 mls/hr Sodium Bicarbonate 75 meq/ (Sodium Chloride) 1,075 mls @ 80 mls/hr IV .[id number] [facility] Last Admin: 08/07/16 19:30 Dose: 80 mls/hr Meropenem 500 mg/ Sodium (Chloride) 100 mls @ 100 mls/hr IVPB DAILY [facility] PRN Reason: Protocol Stop: 08/15/16 10:01 Last Admin: 08/07/16 11:34 Dose: 100 mls/hr Insulin Detemir (Levemir) 10 unit SC DAILY [facility] Last Admin: 08/07/16 11:26 Dose: 10 unit Insulin Human Regular (Humulin R High) 0 units SC ACHS [facility] PRN Reason: Protocol Last Admin: 08/08/16 08:02 Dose: 2 units Oxycodone HCl (Oxycodone Immediate Release Tab) 15 mg PO Q6 PRN PRN Reason: Pain, moderate (4-7) Last Admin: 08/08/16 03:23 Dose: 15 mg Polysaccharide Iron Complex (Ferrex-150) 150 mg PO DAILY [facility] Last Admin: 08/07/16 11:25 Dose: 150 mg Zinc Sulfate (Zinc Sulfate 220 Mg Cap) 220 mg PO DAILY [facility] Last Admin: 08/07/16 13:05 Dose: 220 mg - Labs Labs: 08/08/16 05:45 08/08/16 05:45 PT 11.7 Seconds (9.9-11.8) 08/04/16 20:00 INR 1.08 (0.93-1.08) 08/04/16 20:00 APTT 40.4 Seconds (23.7-30.8) H 08/04/16 20:00 - Constitutional Appears: Non-toxic, No Acute Distress, Chronically Ill - Head Exam Head Exam: ATRAUMATIC, NORMOCEPHALIC - Eye Exam Eye Exam: EOMI, Normal appearance - ENT Exam ENT Exam: Mucous Membranes Moist - Respiratory Exam Respiratory Exam: NORMAL BREATHING PATTERN. absent: Respiratory Distress - Cardiovascular Exam Cardiovascular Exam: absent: Tachycardia - Extremities Exam Additional comments: LLE wound extending just distal from knee to heal, depth to muscle. No foul odor noted. dressing dry. - Neurological Exam Neurological Exam: Alert, Awake - Skin Skin Exam: Dry, Normal Color, Warm Assessment and Plan - Assessment and Plan (Free Text) Assessment: 51 y/o female w/ LLE OM and nonhealing wound Plan: -for BKA thursday -needs cardiac clearance -NPO MN thursday -daily labs -d/w Dr. Daniel Arroyo PGY1
[2016-08-08] MEDS ORDERED: Amikacin 500 MG in Dextrose 5% In Water 100 ML IVPB SCH (10:00)
[2016-08-08 10:13] LABS: HEPATITIS C VIRAL RNA QUAL Not detected
--- NOTE | 2016-08-08 10:36 | PN ---
DATE: 08/08/2016 The patient is in bed, in no acute distress, nontoxic, was seen earlier this morning. PHYSICAL EXAMINATION: VITAL SIGNS: Temperature is 98, blood pressure is 130/70, respiratory rate of 20, heart rate of 91. HEENT: Unremarkable. NECK: Supple. LUNGS: Have decreased breath sounds. HEART: Normal S1, S2. ABDOMEN: Soft, nontender. LABORATORY EXAMINATION: Reveals a white count of 14,300, hemoglobin of 8. Chemistries reveals the p atgris has a BUN of 52, creatinine of 5.0. Urinalysis is noted. Microbiology reveals the patient vallecillo s urine cultures are noted. The blood cultures are negative. Review of orders reveals the patient to have daptomycin and meropenem. MRI of the foot is pending. ASSESSMENT AND PLAN: A 51-year-old female with sepsis with a left foot skin and skin soft tissue inf ection, probable osteomyelitis and history of left foot osteomyelitis and currently on daptomyc in and meropenem day #4. The patient is for a below knee amputation on Thursday. Dr. Tan's progress note from this morning is reviewed. Edgard Hensley MD cc: [phone] TT: 08/08/2016 10:36:04 Confirmation # [id number] Dictation # [id number]
[2016-08-08] MEDS ORDERED: Insulin Detemir 100 units/ml Vial (Levemir) SC ONE (10:55)
[2016-08-08] MEDS ORDERED: Iron Complex Polysacch 150mg Cap ONE (10:56)
[2016-08-08] MEDS: Meropenem 500 MG in Sodium Chloride 0.9% 100 ML IVPB SCH (10:56)
[2016-08-08] MEDS: Iron Complex Polysacch 150mg Cap PO SCH (10:57)
[2016-08-08] MEDS: Insulin Detemir 100 units/ml Vial (Levemir) SC SCH (10:57)
--- NOTE | 2016-08-08 12:27 | CP.PCM.PN ---
<Myles Deea - Last Filed: 08/08/16 12:23> Subjective - Date & Time of Evaluation Date of Evaluation: 08/08/16 Time of Evaluation: 12:23 - Subjective Subjective: 51 y.o female seen at bedside for bilateral heel ulcerations and left leg ulcerations with exposed tendon. Patient denies any acute events overnight. She states that there is pain with pressure on the wounds. Patient states that she is agreeable to have the BKA done on Thursday. Dressings is c/d/i without strikethrough. Patient denies n/f/v/d/c/sob. Objective - Vital Signs/Intake and Output Vital Signs (last 24 hours): Temp Pulse Resp BP Pulse Ox 98.3 F 91 H 19 131/71 97 08/08/16 06:00 08/08/16 06:00 08/08/16 06:00 08/08/16 06:00 08/08/16 06:00 Intake and Output: 08/08/16 08/08/16 06:59 18:59 Intake Total 240 Output Total 200 Balance 40 - Medications Medications: Current Medications Alprazolam (Xanax) 0.5 mg PO QID PRN; Protocol PRN Reason: Anxiety Ascorbic Acid (Vitamin C 500 Mg Tab) 500 mg PO BID [facility] Last Admin: 08/08/16 10:57 Dose: 500 mg Calcium Acetate (Phoslo) 667 mg PO WM [facility] Last Admin: 08/08/16 08:02 Dose: 667 mg Famotidine (Pepcid) 40 mg PO HS [facility] Last Admin: 08/07/16 22:30 Dose: 40 mg Heparin Sodium (Porcine) (Heparin) 5,000 units SC Q12 [facility] PRN Reason: Protocol Last Admin: 08/08/16 10:56 Dose: 5,000 units Daptomycin 570 mg/ Sodium (Chloride) 100 mls @ 200 mls/hr IV Q48H [facility] Stop: 08/10/16 10:01 Last Admin: 08/07/16 18:09 Dose: 200 mls/hr Sodium Bicarbonate 75 meq/ (Sodium Chloride) 1,075 mls @ 80 mls/hr IV .[id number] [facility] Last Admin: 08/07/16 19:30 Dose: 80 mls/hr Meropenem 500 mg/ Sodium (Chloride) 100 mls @ 100 mls/hr IVPB DAILY [facility] PRN Reason: Protocol Stop: 08/15/16 10:01 Last Admin: 08/08/16 10:56 Dose: 100 mls/hr Insulin Detemir (Levemir) 10 unit SC DAILY [facility] Last Admin: 08/08/16 10:57 Dose: 10 unit Insulin Human Regular (Humulin R High) 0 units SC ACHS [facility] PRN Reason: Protocol Last Admin: 08/08/16 08:02 Dose: 2 units Oxycodone HCl (Oxycodone Immediate Release Tab) 15 mg PO Q6 PRN PRN Reason: Pain, moderate (4-7) Last Admin: 08/08/16 03:23 Dose: 15 mg Polysaccharide Iron Complex (Ferrex-150) 150 mg PO DAILY [facility] Last Admin: 08/08/16 10:57 Dose: 150 mg Trazodone HCl (Desyrel) 25 mg PO HS PRN PRN Reason: Insomnia Zinc Sulfate (Zinc Sulfate 220 Mg Cap) 220 mg PO DAILY [facility] Last Admin: 08/08/16 10:57 Dose: 220 mg - Labs Labs: 08/08/16 05:45 08/08/16 05:45 PT 11.7 Seconds (9.9-11.8) 08/04/16 20:00 INR 1.08 (0.93-1.08) 08/04/16 20:00 APTT 40.4 Seconds (23.7-30.8) H 08/04/16 20:00 - Constitutional Appears: Well, Non-toxic, No Acute Distress - Extremities Exam Additional comments: Bilateral lower extremity examination: Vascular: DP pulse faintly palpable; PT pulse non-palpable bilaterally; capillary fill time 3 sec to all digits; temperature gradient is WNL, no peripheral edema noted bilaterally Neuro: protective sensation grossly diminished bilaterally Derm: Right- full-thickness heel ulcer present at plantar medial aspect of the heel; the wound base consists of fibrogranular tissue; moderate serous drainage; malodor noted; no purulence, negative for probe to bone, no clinical signs of infection noted Left- extensive ulceration noted starting from the plantar midfoot and extending proximally to the posterior aspect of the lower leg in the region of the distal Achilles tendon; Wound base (mixture of granular and fibrous) with moderate serosanguinous drainage present; mild purulent drainage noted, mild odor noted; negative for probe to bone; no evidence of cellulitis present at this time - Neurological Exam Neurological Exam: Alert, Awake, Oriented x3 - Psychiatric Exam Psychiatric exam: Flat Affect Assessment and Plan - Assessment and Plan (Free Text) Assessment: 50 y/o female patient with Schwartz Grade 3 Left lower extremity ulcer and Schwartz Grade 2 Right heel ulceration, secondary to diabetes. Plan: Patient was seen and evaluated at bedside discussed in detail with attending Dr. Whitlock Labs and vitals reviewed: WBC 14.3; afebrile Bilateral wounds were cleansed with sterile saline-soaked gauze bilateral LE wounds were dressed with xeroform, DSD, kerlix wound cx : no growth cont. IV abx as per ID x rays show OM of calcaneus of left foot, no acute signs of right foot OM patient going to OR thursday morning for BKA of left leg appreciate general sx consult podiatry will continue to follow <Lakhwinder Whitlock - Last Filed: 08/08/16 14:58> Objective - Vital Signs/Intake and Output Vital Signs (last 24 hours): Temp Pulse Resp BP Pulse Ox 97.6 F 64 18 142/82 97 08/08/16 12:00 08/08/16 12:00 08/08/16 12:00 08/08/16 12:00 08/08/16 06:00 Intake and Output: 08/08/16 08/08/16 06:59 18:59 Intake Total 240 Output Total 200 Balance 40 - Medications Medications: Current Medications Alprazolam (Xanax) 0.5 mg PO QID PRN; Protocol PRN Reason: Anxiety Ascorbic Acid (Vitamin C 500 Mg Tab) 500 mg PO BID [facility] Last Admin: 08/08/16 10:57 Dose: 500 mg Calcium Acetate (Phoslo) 667 mg PO WM [facility] Last Admin: 08/08/16 12:54 Dose: 667 mg Famotidine (Pepcid) 40 mg PO HS [facility] Last Admin: 08/07/16 22:30 Dose: 40 mg Heparin Sodium (Porcine) (Heparin) 5,000 units SC Q12 [facility] PRN Reason: Protocol Last Admin: 08/08/16 10:56 Dose: 5,000 units Daptomycin 570 mg/ Sodium (Chloride) 100 mls @ 200 mls/hr IV Q48H [facility] Stop: 08/10/16 10:01 Last Admin: 08/07/16 18:09 Dose: 200 mls/hr Sodium Bicarbonate 75 meq/ (Sodium Chloride) 1,075 mls @ 80 mls/hr IV .[id number] [facility] Last Admin: 08/08/16 12:57 Dose: 80 mls/hr Meropenem 500 mg/ Sodium (Chloride) 100 mls @ 100 mls/hr IVPB DAILY [facility] PRN Reason: Protocol Stop: 08/15/16 10:01 Last Admin: 08/08/16 10:56 Dose: 100 mls/hr Insulin Detemir (Levemir) 10 unit SC DAILY [facility] Last Admin: 08/08/16 10:57 Dose: 10 unit Insulin Human Regular (Humulin R High) 0 units SC ACHS [facility] PRN Reason: Protocol Last Admin: 08/08/16 12:54 Dose: 2 units Oxycodone HCl (Oxycodone Immediate Release Tab) 15 mg PO Q6 PRN PRN Reason: Pain, moderate (4-7) Last Admin: 08/08/16 03:23 Dose: 15 mg Polysaccharide Iron Complex (Ferrex-150) 150 mg PO DAILY [facility] Last Admin: 08/08/16 10:57 Dose: 150 mg Trazodone HCl (Desyrel) 25 mg PO HS PRN PRN Reason: Insomnia Zinc Sulfate (Zinc Sulfate 220 Mg Cap) 220 mg PO DAILY [facility] Last Admin: 08/08/16 10:57 Dose: 220 mg - Labs Labs: 08/08/16 05:45 08/08/16 05:45 PT 11.7 Seconds (9.9-11.8) 08/04/16 20:00 INR 1.08 (0.93-1.08) 08/04/16 20:00 APTT 40.4 Seconds (23.7-30.8) H 08/04/16 20:00 Attending/Attestation - Attestation I have personally seen and examined this patient.: Yes I have fully participated in the care of the patient.: Yes I have reviewed all pertinent clinical information, including history, physical exam and plan: Yes
--- NOTE | 2016-08-08 12:30 | CON ---
DATE: 08/08/2016 HISTORY OF PRESENT ILLNESS: Shortly, the patient is a 51-year-old -[place] female with self- reported history of mood disorder as well as anxiety. The patient was admitted on the medical side f or sepsis and lower extremity cellulitis. A Psych consult was called for evaluation of depressive sy mptoms. The patient was seen and examined. Previous records reviewed. The patient does not have his tory of being admitted to the psychiatric inpatient unit, at least at [facility]. The patien t reported that she has a lot of medical issues and this situation is making her feel very down and d epressed. At the same time, patient adamantly denied thoughts of killing herself or others, denied i ntent or plan. The patient denied hearing voices, denied seeing things, denied paranoid ideations. The patient reported to be seen by a psychiatrist in the community in the past. The patient was on P rozac before, but patient has severe adverse reaction. The patient does not remember what reaction t hat she had. The patient said that she has difficulty to fall asleep and to stay asleep, but at the same time patient presented to be very drowsy, was barely opening her eyes. The patient denied feeli ng anxious. PAST PSYCHIATRIC HISTORY: The patient said that once patient was about to be admitted to the psychia tric inpatient unit, but the patient declined that offer and walked away from the hospital. The ramses ent denied history of suicidal attempts in the past. VITAL SIGNS: This bid writer reviewed vital signs. Vital signs seem to be stable. Temperature is 98.3, pulse is 91, blood pressure 131/71, respirations 19, oxygen saturation is 97. MEDICATIONS: The patient is on Xanax 2 mg as needed p.r.n. for anxiety, vitamin C, PhosLo, Pepcid, h eparin, Levemir, Humalog, oxycodone, iron complex, zinc sulfate. From this bid writer's perspective, Wu ax 2 mg once a day is a very high dose. If you want to give benzodiazepines, you could give 0.5 mg 4 times a day as needed for anxiety. Dose will be the same but patient will be less sedated and it wi ll be distributed through the day. MENTAL STATUS EXAMINATION: The patient presented to be drowsy, easily arousable. Intermittent eye c ontact. The patient was closing her eyes during the interview. Mood described, "I am upset because I have a lot of medical issues." Affect was flat. Thought process seems to be coherent and goal dir ected. Thought content: The patient denied visual, auditory, or tactile hallucinations. Denied par anoid ideations. The patient denied thoughts of harming herself or others, denied intent or plan. I nsight and judgment are fair. Impulses are well controlled. IMPRESSION: Rule out mood disorder due to general medical condition. The patient has osteomyelitis, scheduled for below-knee amputation on Thursday, sepsis. Please see medical team note for more detail ed information. PLAN: This bid writer discontinued 2 mg of Xanax daily and redistributed that to 0.5 mg 4 times a day as needed for anxiety. The patient complained of insomnia. In case of insomnia, this bid writer could imp lement trazodone at the nighttime 25 mg as needed for insomnia. Besides that, there are no acute iss ues going on. Empathic listening and supportive therapy was provided to the patient. Please reconsu lt as needed. Should you have any questions, give me a call back. Thank you very much for letting me participate in the care of your patient. Anna Cao MD cc: [phone] TT: 08/08/2016 12:30:05 Confirmation # [id number] Dictation # [id number] brandi
--- NOTE | 2016-08-08 12:42 | CP.PCM.PN ---
<Emeterio Lamb - Last Filed: 08/08/16 12:46> Subjective - Date & Time of Evaluation Date of Evaluation: 08/08/16 Time of Evaluation: 11:00 - Subjective Subjective: Patient seen and examined this morning. She is afebrile. Patient is anxious about impending BKA however she gives consent for the procedure. Received 1u PRBC yesterday with adequate response in Hgb. Patient denies chills, n/v/d, chest pain, shortness of breath. Objective - Vital Signs/Intake and Output Vital Signs (last 24 hours): Temp Pulse Resp BP Pulse Ox 98.3 F 91 H 19 131/71 97 08/08/16 06:00 08/08/16 06:00 08/08/16 06:00 08/08/16 06:00 08/08/16 06:00 Intake and Output: 08/08/16 08/08/16 06:59 18:59 Intake Total 240 Output Total 200 Balance 40 - Medications Medications: Current Medications Alprazolam (Xanax) 0.5 mg PO QID PRN; Protocol PRN Reason: Anxiety Ascorbic Acid (Vitamin C 500 Mg Tab) 500 mg PO BID [facility] Last Admin: 08/08/16 10:57 Dose: 500 mg Calcium Acetate (Phoslo) 667 mg PO WM [facility] Last Admin: 08/08/16 08:02 Dose: 667 mg Famotidine (Pepcid) 40 mg PO HS [facility] Last Admin: 08/07/16 22:30 Dose: 40 mg Heparin Sodium (Porcine) (Heparin) 5,000 units SC Q12 [facility] PRN Reason: Protocol Last Admin: 08/08/16 10:56 Dose: 5,000 units Daptomycin 570 mg/ Sodium (Chloride) 100 mls @ 200 mls/hr IV Q48H [facility] Stop: 08/10/16 10:01 Last Admin: 08/07/16 18:09 Dose: 200 mls/hr Sodium Bicarbonate 75 meq/ (Sodium Chloride) 1,075 mls @ 80 mls/hr IV .[id number] [facility] Last Admin: 08/07/16 19:30 Dose: 80 mls/hr Meropenem 500 mg/ Sodium (Chloride) 100 mls @ 100 mls/hr IVPB DAILY [facility] PRN Reason: Protocol Stop: 08/15/16 10:01 Last Admin: 08/08/16 10:56 Dose: 100 mls/hr Insulin Detemir (Levemir) 10 unit SC DAILY [facility] Last Admin: 08/08/16 10:57 Dose: 10 unit Insulin Human Regular (Humulin R High) 0 units SC ACHS [facility] PRN Reason: Protocol Last Admin: 08/08/16 08:02 Dose: 2 units Oxycodone HCl (Oxycodone Immediate Release Tab) 15 mg PO Q6 PRN PRN Reason: Pain, moderate (4-7) Last Admin: 08/08/16 03:23 Dose: 15 mg Polysaccharide Iron Complex (Ferrex-150) 150 mg PO DAILY [facility] Last Admin: 08/08/16 10:57 Dose: 150 mg Trazodone HCl (Desyrel) 25 mg PO HS PRN PRN Reason: Insomnia Zinc Sulfate (Zinc Sulfate 220 Mg Cap) 220 mg PO DAILY [facility] Last Admin: 08/08/16 10:57 Dose: 220 mg - Labs Labs: 08/08/16 05:45 08/08/16 05:45 PT 11.7 Seconds (9.9-11.8) 08/04/16 20:00 INR 1.08 (0.93-1.08) 08/04/16 20:00 APTT 40.4 Seconds (23.7-30.8) H 08/04/16 20:00 - Constitutional Appears: Non-toxic, No Acute Distress - Head Exam Head Exam: ATRAUMATIC, NORMOCEPHALIC - Eye Exam Eye Exam: EOMI, PERRL - ENT Exam ENT Exam: Mucous Membranes Moist - Neck Exam Neck Exam: Full ROM, Normal Inspection - Respiratory Exam Respiratory Exam: Clear to Ausculation Bilateral. absent: Rales, Rhonchi, Wheezes - Cardiovascular Exam Cardiovascular Exam: REGULAR RHYTHM, +S1, +S2 - GI/Abdominal Exam GI & Abdominal Exam: Soft, Normal Bowel Sounds. absent: Distended - Extremities Exam Additional comments: left distal leg with chronic infected stage 3 ulceration. distal pulses are intact. - Neurological Exam Neurological Exam: Alert, Awake, Oriented x3 - Psychiatric Exam Psychiatric exam: Anxious - Skin Skin Exam: Dry, Warm Assessment and Plan - Assessment and Plan (Free Text) Assessment: 51 yo female with past medical history of CVA, DM type 2, hypertension, atrial fibrillation, osteomyelitis and HCV admitted for sepsis secondary to infected chronic lower extremity wounds. Xray of left foot reveals signs of osteomyelitis. Sepsis is complicated by acute kidney injury on chronic kidney disease. Renal function continues to deteriorate with minimal urine output. - 500cc/24hr Sepsis secondary to osteomyelitis - BKA scheduled for Thursday with Dr. Sanchez. Cardiology consulted for clearance. - Daptomycin 570mg q48hr, Merrem 500mg qdaily - ID following -Pain control with oxycodone 30mg PO q4h. Confirmed medication and dosage from pharmacy. May need to hold as patient is very lethargic this morning. - dressings changed by podiatry daily. Acute on chronic kidney disease 2/2 sepsis syndrome - no dialysis at this time. patient followed closely by nephrology. -I VF hydration - continue Sodium bicarb - continuous I/O - renal dose abx - Renal diet - Nephrology consulted - Dr. Winslow Diabetes type 2 -Humulin low dose ISS -Fingersticks ACHS -Hgb A1c pending -Renal/Consistent carb diet Hypertension -Antihypertensives held due to normotension in the ED in the setting of sepsis HCV -HCV viral RNA qualitative pending DVT prophylaxis -Heparin 5000u SC BID <Tay ALTMAN,Javon - Last Filed: 08/08/16 15:45> Objective - Vital Signs/Intake and Output Vital Signs (last 24 hours): Temp Pulse Resp BP Pulse Ox 97.6 F 64 18 142/82 97 08/08/16 12:00 08/08/16 12:00 08/08/16 12:00 08/08/16 12:00 08/08/16 06:00 Intake and Output: 08/08/16 08/08/16 06:59 18:59 Intake Total 240 Output Total 200 Balance 40 - Medications Medications: Current Medications Alprazolam (Xanax) 0.5 mg PO QID PRN; Protocol PRN Reason: Anxiety Ascorbic Acid (Vitamin C 500 Mg Tab) 500 mg PO BID [facility] Last Admin: 08/08/16 10:57 Dose: 500 mg Calcium Acetate (Phoslo) 667 mg PO WM [facility] Last Admin: 08/08/16 12:54 Dose: 667 mg Famotidine (Pepcid) 40 mg PO HS [facility] Last Admin: 08/07/16 22:30 Dose: 40 mg Heparin Sodium (Porcine) (Heparin) 5,000 units SC Q12 [facility] PRN Reason: Protocol Last Admin: 08/08/16 10:56 Dose: 5,000 units Daptomycin 570 mg/ Sodium (Chloride) 100 mls @ 200 mls/hr IV Q48H [facility] Stop: 08/10/16 10:01 Last Admin: 08/07/16 18:09 Dose: 200 mls/hr Sodium Bicarbonate 75 meq/ (Sodium Chloride) 1,075 mls @ 80 mls/hr IV .[id number] [facility] Last Admin: 08/08/16 12:57 Dose: 80 mls/hr Meropenem 500 mg/ Sodium (Chloride) 100 mls @ 100 mls/hr IVPB DAILY [facility] PRN Reason: Protocol Stop: 08/15/16 10:01 Last Admin: 08/08/16 10:56 Dose: 100 mls/hr Insulin Detemir (Levemir) 10 unit SC DAILY [facility] Last Admin: 08/08/16 10:57 Dose: 10 unit Insulin Human Regular (Humulin R High) 0 units SC ACHS [facility] PRN Reason: Protocol Last Admin: 08/08/16 12:54 Dose: 2 units Oxycodone HCl (Oxycodone Immediate Release Tab) 15 mg PO Q6 PRN PRN Reason: Pain, moderate (4-7) Last Admin: 08/08/16 03:23 Dose: 15 mg Polysaccharide Iron Complex (Ferrex-150) 150 mg PO DAILY [facility] Last Admin: 08/08/16 10:57 Dose: 150 mg Trazodone HCl (Desyrel) 25 mg PO HS PRN PRN Reason: Insomnia Zinc Sulfate (Zinc Sulfate 220 Mg Cap) 220 mg PO DAILY [facility] Last Admin: 08/08/16 10:57 Dose: 220 mg - Labs Labs: 08/08/16 05:45 08/08/16 05:45 PT 11.7 Seconds (9.9-11.8) 08/04/16 20:00 INR 1.08 (0.93-1.08) 08/04/16 20:00 APTT 40.4 Seconds (23.7-30.8) H 08/04/16 20:00 Attending/Attestation - Attestation I have personally seen and examined this patient.: Yes I have fully participated in the care of the patient.: Yes I have reviewed all pertinent clinical information, including history, physical exam and plan: Yes Notes (Text): 08/08/16 15:35 Patient was seen and examined with biomedical field service engineer. 51 Yrs female with past medical hsitory of CVA, DM type 2, hypertension, osteomyelitis of foot ,Proxysmal AF not on anticoagulation due to history of bleeding, was treated with antibiotics previously was admitted with sepsis due to infected left leg ulcer and left Calcaeus osteomyelitis .Patient is on on Daptomycin and Meropenem.Podiatry has recommending left BKA.Patient has agreed for amputation.Surgery is planning for amputation on Thursday. Patient also has oligo uric renal failure, creatinin is 5.0, unchanged, Nephrology is following, if no improvement, patient will need dialysis. Prognosis is guarded. . Management plan was discussed in detail with patient.Education was provided 08/08/16 15:42 08/08/16 15:44
[2016-08-08] MEDS ORDERED: Insulin Reg-HIGH-Coverage ONE (12:54)
--- NOTE | 2016-08-08 15:16 | PN ---
DATE: 08/08/2016 SUBJECTIVE: The patient is currently seen en route down to MRI. She is having an MRI of her lower e xtremity for further evaluation of her diabetic leg wound and osteomyelitis. The patient remains on IV fluid with sodium bicarbonate. Her creatinine has stabilized at 5.0. She is on multiple antibiot ics for her leg wounds and osteomyelitis. MEDICATIONS: Medication list reviewed. The patient is currently on daptomycin, trazodone, Ferrex, h eparin, insulin, meropenem, oxycodone, Pepcid, PhosLo, IV fluid with sodium bicarbonate, vitamin C, X anax, and zinc. OBJECTIVE: INTAKE AND OUTPUT: Intake 1200, output 500. VITAL SIGNS: Blood pressure 142/82. Pulse is 64. Respiratory rate is 18 with a temperature of 97.6 . HEENT: Normocephalic, atraumatic. Conjunctivae are pale. Sclerae are nonicteric. NECK: Supple, no neck vein distention. CHEST: Clear to auscultation and percussion. CARDIOVASCULAR: Regular rate and rhythm with a soft systolic murmur left lower sternal border. ABDOMEN: Soft. Bowel sounds normal. EXTREMITIES: Show minimal edema of her lower extremity with dressings over her left and right lower extremities. LABORATORY DATA AND IMAGING: Echocardiogram done shows a normal left ventricle. No LVH. No vegetat ions seen. No significant valvular pathology. Renal ultrasound done showed 2 normal size kidneys, n o hydronephrosis, normal echogenicity. Lower extremity venous Doppler study done showed no evidence for DVT. CBC: White blood cell count 14.3 with a hemoglobin of 8.3 and a platelet count of 220,000. Chemistries show sodium of 129, which is stable. Potassium 3.7, chloride 103, CO2 was 18, up from a low of 15. The patient is on a sodium bicarbonate drip. BUN of 52 with a creatinine of 5.0, which is holding stable. Her baseline creatinine is in the 1.8 range. Calcium 8.2 with an albumin of 2.5 , phosphorus level 5.4, magnesium 1.9. A 24-hour urines total volume was 725 mL. If accurate, her c reatinine clearance is 9 with 3872 mg of protein in the urine. Microbiology: Urine culture is posit luis angel for yeast. Wound cultures are negative. Blood cultures are negative at 3 days. The patient is status post transfusion 1 unit of packed red blood cells. ASSESSMENT: 1. Acute renal failure superimposed on chronic kidney disease stage III. This is in the setting of sepsis, osteomyelitis of her lower extremity with poorly healing diabetic wounds. In the past, lidya patton has had infections complicated by Staph aureus, Klebsiella and pseudomonas. She is on broad-spect rum antibiotic coverage to cover these organisms. The patient presently has osteomyelitis. There is some consideration about her possibly receiving an amputation of her left lower extremity. The ramses ent is unwilling to accept this. She was explained that prolonged courses of antibiotics will likely damage her kidney further and could place her on dialysis. The patient remains acidotic. We will c ontinue IV fluid hydration with sodium bicarbonate. Renal ultrasound showed no obstructive uropathy and her urine Jose's stain was negative for eosinophils. 2. Hyponatremia. This is likely secondary to acute renal failure superimposed on chronic kidney dis ease stage III. Sodium appears to be stable. 3. Metabolic acidosis. The patient will continue receiving IV fluid with sodium bicarbonate. 4. History of anemia. Post-transfusion hemoglobin is improved at 8.3. The patient can be transfuse d up to a hemoglobin of 9-10. 5. History of secondary hyperparathyroidism. Phosphorus level is 5.4. The patient will continue a renal diet and continue on binders. 6. Past history of interstitial nephritis. No evidence for that at this point in time. Urine Hanse l stain was negative. 7. Lower extremity diabetic wounds, ulcerations, possible osteomyelitis of her left foot. MRI is be ing done today for further clarification. PLAN: 1. Discussed with staff on 2R in detail. We will try and continue patient on antibiotic therapy wit h the least nephrotoxic combination of drugs. 2. Continue IV fluid hydration with sodium bicarbonate. 3. Transfuse to a hemoglobin of 9-10. 4. Continue renal diet and binder therapy. 5. Continue to monitor labs on a daily basis. 6. Further discussions with the patient about the possible need for dialysis should her kidney funct ion continue to deteriorate. These discussions have already been initiated and patient at present is unreceptive to consider dialysis. Nick Law MD cc: [id number] TT: 08/08/2016 15:15:59 Confirmation # [id number] Dictation # [id number] cn
--- NOTE | 2016-08-08 20:00 | MRI ---
EXAM: MR Right Lower Extremity Without Intravenous Contrast, Foot CLINICAL HISTORY: The patient age is 51 years old and is female; Signs and symptoms; Other: HX of osteo; Patient HX: Bilateral feet - HX of osteo; Additional info: HX of osteomyelitis Facility exam id and description: Mri footwoconb foot w/o contrast bilateral TECHNIQUE: Multiplanar magnetic resonance images of the right foot without intravenous contrast. COMPARISON: No relevant prior studies available. FINDINGS: Limitations: A failure of fat saturation involving the toes limits this study. LIGAMENTS: Medial collateral: No visible acute tear. Lateral collateral: No visible acute tear. Lisfranc: No visualized acute tear. TENDONS: Flexor: There is increased fluid surrounding the flexor hallucis tendon at the plantar aspect of the foot, consistent with tenosynovitis. Extensor: No visualized acute tear. Muscles: There is significant edema involving the musculature of the plantar aspect of the foot, likely representing muscle strain or myositis. Fluid: There is a small first MTP joint effusion. Sinus tarsi: Edema is seen within the sinus Tarsi. Plantar fascia: Edema/fluid is seen adjacent to the plantar fascia, suggestive of plantar fasciitis or extension of adjacent soft tissue swelling. Bones/joints: Mild patchy edema is identified within the calcaneus posteriorly. This extends out of the field of view of this study. Osteomyelitis is considered, although reactive or post-traumatic edema could appear similar. There is no acute marrow edema within the remaining visualized bone marrow of the foot. Other findings: The hindfoot is incompletely visualized. Hypointense fibrotic changes are identified involving the heel pad. IMPRESSION: 1. There is significant edema involving the musculature of the plantar aspect of the foot, likely representing muscle strain or myositis. 2. Mild patchy edema is identified within the calcaneus posteriorly. This extends out of the field of view of this study. Osteomyelitis is considered, although reactive or post-traumatic edema could appear similar. Clinical correlation and possible additional imaging of the ankle/heel are recommended. 3. Edema/fluid is seen adjacent to the plantar fascia, suggestive of plantar fasciitis or extension of adjacent soft tissue swelling. 4. There is a small first MTP joint effusion. 5. Tenosynovitis of the flexor hallucis tendon. 6. Additional findings described above. EXAM: MR Left Lower Extremity Without Intravenous Contrast, Foot CLINICAL HISTORY: The patient age is 51 years old and is female; Signs and symptoms; Other: HX of osteo; Patient HX: Bilateral feet - HX of osteo; Additional info: HX of osteomyelitis Facility exam id and description: Mri footwoconb foot w/o contrast bilateral TECHNIQUE: Multiplanar magnetic resonance images of the left foot without intravenous contrast. EXAM DATE/TIME: 08/08/2016 10:31 PM COMPARISON: None available. FINDINGS: LIGAMENTS: Medial collateral: No visible acute tear. Lateral collateral: No visible acute tear. Lisfranc: No visualized acute tear. TENDONS: Flexor: There is a T2 hyperintense partial tear of the flexor hallucis tendon. Extensor: No visualized acute tear. Muscles: There is significant edema involving the musculature of the left foot, likely representing muscle strain or myositis. Fluid: There is a small subtalar joint effusion which extends into the sinus tarsi. Sinus tarsi: See above. Plantar fascia: The proximal plantar fascia is poorly visualized, which may be postoperative or due to tear. Bones/joints: There is significant edema within the bone marrow of the talus, calcaneus, and distal fibula. This is concerning for osteomyelitis in the appropriate clinical setting. Additional edema is identified within the cuboid bone and fifth metatarsal base. Mild edema is seen within the bone marrow adjacent to the first metatarsal-tarsal joint, likely secondary to arthropathy. Soft tissues: There is a prominent ulceration of the heel pad, with significant tissue loss involving the hindfoot. These findings are likely postoperative or infectious. There is significant soft tissue swelling of the foot and ankle, consistent with cellulitis in the appropriate clinical setting. Hypointense fibrotic tissue or gas is seen within the soft tissues posterior to the ankle. Loculated collections of fluid are identified within the soft tissues posterior to the ankle, the largest measuring 3.3 x 1.5 x 2.1 cm. There is a fluid collection within the lateral aspect of the hindfoot which communicates with the subtalar joint space measuring 1.9 x 1.3 x 2.4 cm. Additional smaller fluid collections are identified within the hindfoot. These findings are concerning for abscesses. Other findings: The hindfoot is incompletely visualized. IMPRESSION: 1. There is a prominent ulceration of the heel pad, with significant tissue loss involving the hindfoot. These findings are likely postoperative or infectious. There is significant soft tissue swelling of the foot and ankle, consistent with cellulitis in the appropriate clinical setting. 2. There is significant edema within the bone marrow of the talus, calcaneus, and distal fibula. Additional edema is identified within the cuboid bone and fifth metatarsal base. This is concerning for osteomyelitis in the appropriate clinical setting. Mild edema is seen within the bone marrow adjacent to the first metatarsal-tarsal joint, likely secondary to arthropathy. 3. Loculated collections of fluid are identified within the soft tissues of the ankle and hindfoot. One of these fluid collections is identified within the lateral aspect of the hindfoot which communicates with the subtalar joint space measuring 1.9 x 1.3 x 2.4 cm. These findings are concerning for abscesses. Hypointense fibrotic tissue or gas is seen within the soft tissues posterior to the ankle. 4. There is significant edema involving the musculature of the left foot, likely representing muscle strain or myositis. 5. There is a T2 hyperintense partial tear of the flexor hallucis tendon. 6. There is a small subtalar joint effusion which extends into the sinus tarsi. 7. The proximal plantar fascia is poorly visualized, which may be postoperative or due to tear. 8. Additional findings described above.
[2016-08-09] MEDS: oxyCODONE 30 mg Immediate Release Tab PO PRN ×2 (05:04→18:16)
--- NOTE | 2016-08-09 06:17 | CP.PCM.PN ---
Subjective - Date & Time of Evaluation Date of Evaluation: 08/09/16 Time of Evaluation: 07:00 - Subjective Subjective: General Surgery Progress note for Dr. Sanchez Patient seen and examined at bedside. Last night patient had some sero- sanguinous saturation through the dressing on the left foot after putting weight on the foot during PT. Nursing changed the dressing but it became saturated again. Patient reports pain only moderately controlled with the current regimen, which she claims is different than her outpatient regimen. Patient denies fevers, chills, SOB, or any other symptoms Objective - Vital Signs/Intake and Output Vital Signs (last 24 hours): Temp Pulse Resp BP Pulse Ox 98.3 F 72 20 118/72 97 08/08/16 20:00 08/09/16 02:00 08/08/16 20:00 08/08/16 20:00 08/08/16 06:00 Intake and Output: 08/08/16 08/09/16 18:59 06:59 Intake Total 240 Output Total 275 Balance -35 - Medications Medications: Current Medications Alprazolam (Xanax) 0.5 mg PO QID PRN; Protocol PRN Reason: Anxiety Ascorbic Acid (Vitamin C 500 Mg Tab) 500 mg PO BID [facility] Last Admin: 08/08/16 17:22 Dose: 500 mg Calcium Acetate (Phoslo) 667 mg PO WM [facility] Last Admin: 08/08/16 17:22 Dose: 667 mg Famotidine (Pepcid) 40 mg PO HS [facility] Last Admin: 08/08/16 21:55 Dose: 40 mg Heparin Sodium (Porcine) (Heparin) 5,000 units SC Q12 [facility] PRN Reason: Protocol Last Admin: 08/08/16 22:01 Dose: Not Given Daptomycin 570 mg/ Sodium (Chloride) 100 mls @ 200 mls/hr IV Q48H [facility] Stop: 08/10/16 10:01 Last Admin: 08/07/16 18:09 Dose: 200 mls/hr Sodium Bicarbonate 75 meq/ (Sodium Chloride) 1,075 mls @ 80 mls/hr IV .[id number] [facility] Last Admin: 08/08/16 12:57 Dose: 80 mls/hr Meropenem 500 mg/ Sodium (Chloride) 100 mls @ 100 mls/hr IVPB DAILY [facility] PRN Reason: Protocol Stop: 08/15/16 10:01 Last Admin: 08/08/16 10:56 Dose: 100 mls/hr Insulin Detemir (Levemir) 10 unit SC DAILY [facility] Last Admin: 08/08/16 10:57 Dose: 10 unit Insulin Human Regular (Humulin R High) 0 units SC ACHS [facility] PRN Reason: Protocol Last Admin: 08/08/16 22:02 Dose: Not Given Oxycodone HCl (Oxycodone Immediate Release Tab) 15 mg PO Q6 PRN PRN Reason: Pain, moderate (4-7) Last Admin: 08/09/16 05:04 Dose: 15 mg Polysaccharide Iron Complex (Ferrex-150) 150 mg PO DAILY [facility] Last Admin: 08/08/16 10:57 Dose: 150 mg Trazodone HCl (Desyrel) 25 mg PO HS PRN PRN Reason: Insomnia Zinc Sulfate (Zinc Sulfate 220 Mg Cap) 220 mg PO DAILY [facility] Last Admin: 08/08/16 10:57 Dose: 220 mg - Labs Labs: 08/08/16 05:45 08/08/16 05:45 PT 11.7 Seconds (9.9-11.8) 08/04/16 20:00 INR 1.08 (0.93-1.08) 08/04/16 20:00 APTT 40.4 Seconds (23.7-30.8) H 08/04/16 20:00 - Constitutional Appears: Well, Non-toxic, No Acute Distress - Respiratory Exam Respiratory Exam: NORMAL BREATHING PATTERN. absent: Accessory Muscle Use, Respiratory Distress - Cardiovascular Exam Cardiovascular Exam: RRR - GI/Abdominal Exam GI & Abdominal Exam: Soft. absent: Distended - Extremities Exam Extremities Exam: absent: Calf Tenderness Additional comments: Kerlex dressing on left foot with moderate sero-sanguinous saturation. - Neurological Exam Neurological Exam: Alert, Awake, Oriented x3 - Psychiatric Exam Psychiatric exam: Normal Affect, Normal Mood - Skin Skin Exam: Normal Color, Warm Assessment and Plan - Assessment and Plan (Free Text) Assessment: 51 y/o female w/ LLE OM and nonhealing wound Plan: -for BKA thursday -needs cardiac clearance -NPO MN thursday -daily labs -LE wound care per podiatry d/w Dr. Daniel Simms, PGY-2
[2016-08-09 08:09] LABS: MEAN CELL VOLUME 84.8 fL (80.0-105.0); MEAN CORPUSCULAR HEMOGLOBIN 26.4 pg (25.0-35.0); MEAN CORPUSCULAR HGB CONC 31.2 g/dl (31.0-37.0); MEAN PLATELET VOLUME 9.8 fl (7.0-11.0); RED CELL DISTRIBUTION WIDTH 15.4 % (11.5-14.5); WHITE BLOOD COUNT 9.8 10^3/ul (4.5-11.0)
[2016-08-09 08:16] LABS: HEMATOCRIT 23.4 % (36.0-48.0)
[2016-08-09 08:21] LABS: ALB/GLOB RATIO 0.7 (1.1-1.8); BILIRUBIN,TOTAL 0.3 mg/dL (0.2-1.3); CALCIUM 7.5 mg/dL (8.4-10.5); MAGNESIUM 1.8 mg/dL (1.7-2.2); PHOSPHOROUS 5.9 mg/dL (2.5-4.5); POTASSIUM 3.6 mmol/L (3.6-5.0); TOTAL PROTEIN 5.5 g/dL (5.8-8.3)
[2016-08-09] MEDS: Insulin Reg-HIGH-Coverage SC SCH ×4 (08:39→22:45)
[2016-08-09] MEDS: Meropenem 500 MG in Sodium Chloride 0.9% 100 ML IVPB SCH (09:00)
--- NOTE | 2016-08-09 09:02 | CP.PCM.PN ---
<Idania Osman - Last Filed: 08/09/16 09:30> Subjective - Date & Time of Evaluation Date of Evaluation: 08/09/16 Time of Evaluation: 09:00 - Subjective Subjective: 51 y/o female seen at bedside with Dr. Whitlock for bilateral heel ulcerations and left leg ulcerations with exposed tendon. Patient denies any acute events overnight. She states that she is experiencing pain when any kind of pressure is applied to the legs. Pt is aware that she will be going for the BKA surgery on Thursday. Dressings is clean, dry and intact with no strikethrough noted. Patient denies n/f/v/d/c/sob. Objective - Vital Signs/Intake and Output Vital Signs (last 24 hours): Temp Pulse Resp BP Pulse Ox 98.4 F 79 20 106/67 97 08/09/16 06:00 08/09/16 06:00 08/09/16 06:00 08/09/16 06:00 08/09/16 06:00 Intake and Output: 08/09/16 08/09/16 06:59 18:59 Intake Total 240 Output Total 275 Balance -35 - Medications Medications: Current Medications Alprazolam (Xanax) 0.5 mg PO QID PRN; Protocol PRN Reason: Anxiety Ascorbic Acid (Vitamin C 500 Mg Tab) 500 mg PO BID [facility] Last Admin: 08/08/16 17:22 Dose: 500 mg Calcium Acetate (Phoslo) 667 mg PO WM [facility] Last Admin: 08/09/16 08:39 Dose: 667 mg Famotidine (Pepcid) 40 mg PO HS [facility] Last Admin: 08/08/16 21:55 Dose: 40 mg Heparin Sodium (Porcine) (Heparin) 5,000 units SC Q12 [facility] PRN Reason: Protocol Last Admin: 08/08/16 22:01 Dose: Not Given Daptomycin 570 mg/ Sodium (Chloride) 100 mls @ 200 mls/hr IV Q48H [facility] Stop: 08/10/16 10:01 Last Admin: 08/07/16 18:09 Dose: 200 mls/hr Sodium Bicarbonate 75 meq/ (Sodium Chloride) 1,075 mls @ 80 mls/hr IV .[id number] [facility] Last Admin: 08/09/16 08:42 Dose: Not Given Meropenem 500 mg/ Sodium (Chloride) 100 mls @ 100 mls/hr IVPB DAILY [facility] PRN Reason: Protocol Stop: 08/15/16 10:01 Last Admin: 08/08/16 10:56 Dose: 100 mls/hr Insulin Detemir (Levemir) 10 unit SC DAILY [facility] Last Admin: 08/08/16 10:57 Dose: 10 unit Insulin Human Regular (Humulin R High) 0 units SC ACHS [facility] PRN Reason: Protocol Last Admin: 08/09/16 08:39 Dose: Not Given Oxycodone HCl (Oxycodone Immediate Release Tab) 15 mg PO Q6 PRN PRN Reason: Pain, moderate (4-7) Last Admin: 08/09/16 05:04 Dose: 15 mg Polysaccharide Iron Complex (Ferrex-150) 150 mg PO DAILY [facility] Last Admin: 08/08/16 10:57 Dose: 150 mg Trazodone HCl (Desyrel) 25 mg PO HS PRN PRN Reason: Insomnia Zinc Sulfate (Zinc Sulfate 220 Mg Cap) 220 mg PO DAILY [facility] Last Admin: 08/08/16 10:57 Dose: 220 mg - Labs Labs: 08/09/16 06:30 08/09/16 06:30 PT 11.7 Seconds (9.9-11.8) 08/04/16 20:00 INR 1.08 (0.93-1.08) 08/04/16 20:00 APTT 40.4 Seconds (23.7-30.8) H 08/04/16 20:00 - Constitutional Appears: Well, Non-toxic, No Acute Distress - Extremities Exam Additional comments: B/L lower extremity examination: Vascular: DP pulse faintly palpable; PT pulse non-palpable B/L; CFT <3 sec x 10 ; temperature gradient WNL, no peripheral edema noted Neuro: Protective sensation grossly diminished bilaterally Derm: Right LE: Full thickness ulceration present at plantar medial aspect of heel. Wound base consists of a mixture of fibrogranular tissue. There is moderate serous drainage, malodor noted; no purulence, negative probe to bone, no clinical signs of infection noted Left LE: extensive ulceration noted starting from the plantar midfoot and extending proximally to the posterior aspect of the lower leg in the region of the distal Achilles tendon. Wound base is a mixture of granular and fibrous tissue with moderate serosanguinous drainage present. Mild purulent drainage noted, mild malodor noted. Negative for probe to bone; no evidence of cellulitis at this time - Neurological Exam Neurological Exam: Alert, Awake, Oriented x3 - Psychiatric Exam Psychiatric exam: Normal Affect, Normal Mood Assessment and Plan - Assessment and Plan (Free Text) Assessment: 51 y/o female patient with Schwartz grade 3 left lower extremity ulcer and Schwartz grade 2 right heel ulceration, secondary to DM. Plan: Patient was seen and evaluated at bedside with Dr. Whitlock Chart, labs and vitals reviewed: WBC 14.3; afebrile B/L LE wounds were dressed with xeroform, DSD, and kerlix with offloading boots applied Wound cx : no growth cont. with IV abx as per ID x rays show OM of calcaneus of left foot, no acute signs of right foot OM Patient going to OR thursday morning for BKA of left leg - patient is aware and agreeable to surgery Gen surg note appreciated podiatry will continue to follow <Lakhwinder Whitlock - Last Filed: 08/11/16 13:02> Objective - Vital Signs/Intake and Output Vital Signs (last 24 hours): Temp Pulse Resp BP Pulse Ox 97.7 F 74 20 159/83 H 90 L 08/11/16 11:48 08/11/16 11:48 08/11/16 11:48 08/11/16 11:48 08/11/16 06:00 Intake and Output: 08/11/16 08/11/16 06:59 18:59 Intake Total 500 0 Output Total 1350 Balance -850 0 - Medications Medications: Current Medications Alprazolam (Xanax) 0.5 mg PO QID PRN; Protocol PRN Reason: Anxiety Last Admin: 08/10/16 10:27 Dose: 0.5 mg Ascorbic Acid (Vitamin C 500 Mg Tab) 500 mg PO BID [facility] Last Admin: 08/11/16 09:40 Dose: 500 mg Calcium Acetate (Phoslo) 667 mg PO WM [facility] Last Admin: 08/11/16 08:01 Dose: 667 mg Docusate Sodium (Colace) 100 mg PO BID [facility] Famotidine (Pepcid) 40 mg PO HS [facility] Last Admin: 08/10/16 22:50 Dose: 40 mg Heparin Sodium (Porcine) (Heparin) 5,000 units SC Q12 [facility] PRN Reason: Protocol Last Admin: 08/11/16 09:41 Dose: 5,000 units Sodium Bicarbonate 75 meq/ (Sodium Chloride) 1,075 mls @ 80 mls/hr IV .[id number] [facility] Last Admin: 08/11/16 09:48 Dose: Not Given Meropenem 500 mg/ Sodium (Chloride) 100 mls @ 100 mls/hr IVPB DAILY [facility] PRN Reason: Protocol Stop: 08/15/16 10:01 Last Admin: 08/11/16 09:11 Dose: 100 mls/hr Insulin Detemir (Levemir) 10 unit SC DAILY [facility] Last Admin: 08/11/16 09:41 Dose: 10 unit Insulin Human Regular (Humulin R High) 0 units SC ACHS [facility] PRN Reason: Protocol Last Admin: 08/11/16 09:47 Dose: 2 units Oxycodone HCl (Oxycodone Immediate Release Tab) 15 mg PO Q6 PRN PRN Reason: Pain, moderate (4-7) Last Admin: 08/10/16 10:01 Dose: 15 mg Polyethylene Glycol (Miralax) 17 gm PO DAILY [facility] Polysaccharide Iron Complex (Ferrex-150) 150 mg PO DAILY [facility] Last Admin: 08/11/16 09:40 Dose: 150 mg Trazodone HCl (Desyrel) 25 mg PO HS PRN PRN Reason: Insomnia Zinc Sulfate (Zinc Sulfate 220 Mg Cap) 220 mg PO DAILY [facility] Last Admin: 08/11/16 09:40 Dose: 220 mg - Labs Labs: 08/11/16 06:01 08/11/16 06:01 PT 10.8 Seconds (9.9-11.8) 08/11/16 06:01 INR 1.00 (0.93-1.08) 08/11/16 06:01 APTT 35.0 Seconds (23.7-30.8) H 08/11/16 06:01 Attending/Attestation - Attestation I have personally seen and examined this patient.: Yes I have fully participated in the care of the patient.: Yes I have reviewed all pertinent clinical information, including history, physical exam and plan: Yes
--- NOTE | 2016-08-09 10:03 | CP.PCM.PN ---
<Michael Ortega - Last Filed: 08/09/16 10:12> Subjective - Date & Time of Evaluation Date of Evaluation: 08/09/16 Time of Evaluation: 07:00 - Subjective Subjective: Patient was seen and examined at bedside. Pt found to be resting comfortably. No acute complaints at this time. No acute or adverse events overnight as per nursing staff. Pt tolerated PT yesterday however needed to change dressings on LLE multiple times on account of becoming saturated after PT. Pt denied fever, chills, sob, chest pains, abdominal pains, n/v/d/c. After extensive talks about pt's status, she has come to agree for a BKA procedure. Objective - Vital Signs/Intake and Output Vital Signs (last 24 hours): Temp Pulse Resp BP Pulse Ox 98.4 F 79 20 106/67 97 08/09/16 06:00 08/09/16 06:00 08/09/16 06:00 08/09/16 06:00 08/09/16 06:00 Intake and Output: 08/09/16 08/09/16 06:59 18:59 Intake Total 240 Output Total 275 Balance -35 - Medications Medications: Current Medications Alprazolam (Xanax) 0.5 mg PO QID PRN; Protocol PRN Reason: Anxiety Ascorbic Acid (Vitamin C 500 Mg Tab) 500 mg PO BID [facility] Last Admin: 08/08/16 17:22 Dose: 500 mg Calcium Acetate (Phoslo) 667 mg PO WM [facility] Last Admin: 08/09/16 08:39 Dose: 667 mg Famotidine (Pepcid) 40 mg PO HS [facility] Last Admin: 08/08/16 21:55 Dose: 40 mg Heparin Sodium (Porcine) (Heparin) 5,000 units SC Q12 [facility] PRN Reason: Protocol Last Admin: 08/08/16 22:01 Dose: Not Given Daptomycin 570 mg/ Sodium (Chloride) 100 mls @ 200 mls/hr IV Q48H [facility] Stop: 08/10/16 10:01 Last Admin: 08/07/16 18:09 Dose: 200 mls/hr Sodium Bicarbonate 75 meq/ (Sodium Chloride) 1,075 mls @ 80 mls/hr IV .[id number] [facility] Last Admin: 08/09/16 08:42 Dose: Not Given Meropenem 500 mg/ Sodium (Chloride) 100 mls @ 100 mls/hr IVPB DAILY [facility] PRN Reason: Protocol Stop: 08/15/16 10:01 Last Admin: 08/09/16 09:00 Dose: 100 mls/hr Insulin Detemir (Levemir) 10 unit SC DAILY [facility] Last Admin: 08/08/16 10:57 Dose: 10 unit Insulin Human Regular (Humulin R High) 0 units SC ACHS [facility] PRN Reason: Protocol Last Admin: 08/09/16 08:39 Dose: Not Given Oxycodone HCl (Oxycodone Immediate Release Tab) 15 mg PO Q6 PRN PRN Reason: Pain, moderate (4-7) Last Admin: 08/09/16 05:04 Dose: 15 mg Polysaccharide Iron Complex (Ferrex-150) 150 mg PO DAILY [facility] Last Admin: 08/08/16 10:57 Dose: 150 mg Trazodone HCl (Desyrel) 25 mg PO HS PRN PRN Reason: Insomnia Zinc Sulfate (Zinc Sulfate 220 Mg Cap) 220 mg PO DAILY [facility] Last Admin: 08/08/16 10:57 Dose: 220 mg - Labs Labs: 08/09/16 06:30 08/09/16 06:30 PT 11.7 Seconds (9.9-11.8) 08/04/16 20:00 INR 1.08 (0.93-1.08) 08/04/16 20:00 APTT 40.4 Seconds (23.7-30.8) H 08/04/16 20:00 - Constitutional Appears: No Acute Distress - Head Exam Head Exam: ATRAUMATIC, NORMAL INSPECTION, NORMOCEPHALIC - Eye Exam Eye Exam: EOMI, Normal appearance, PERRL Pupil Exam: NORMAL ACCOMODATION, PERRL - ENT Exam ENT Exam: Mucous Membranes Moist, Normal Exam - Neck Exam Neck Exam: Full ROM, Normal Inspection. absent: Lymphadenopathy - Respiratory Exam Respiratory Exam: Clear to Ausculation Bilateral, NORMAL BREATHING PATTERN - Cardiovascular Exam Cardiovascular Exam: REGULAR RHYTHM, +S1, +S2. absent: Murmur - GI/Abdominal Exam GI & Abdominal Exam: Soft, Normal Bowel Sounds. absent: Tenderness - Extremities Exam Additional comments: b/l LE bandaged, some saturation noted, b/l heel boots in place - Neurological Exam Neurological Exam: Alert, Awake, CN II-XII Intact, Oriented x3 - Psychiatric Exam Psychiatric exam: Normal Affect, Normal Mood - Skin Skin Exam: Dry, Intact, Normal Color, Warm Assessment and Plan - Assessment and Plan (Free Text) Assessment: 51 yo female with past medical history of CVA, DM type 2, hypertension, atrial fibrillation, osteomyelitis and HCV admitted for sepsis secondary to infected chronic lower extremity wounds. Xray of left foot reveals signs of osteomyelitis. Sepsis is complicated by acute kidney injury on chronic kidney disease. Patient is on on Daptomycin and Meropenem. Podiatry has recommending left BKA. Patient has agreed with plan as of now. Surgery is planning for amputation on Thursday. Sepsis secondary to osteomyelitis - BKA scheduled for Thursday with Dr. Sanchez. Cardiology consulted for clearance. - Daptomycin 570mg q48hr, Merrem 500mg qdaily - ID following - B/L LE wounds were dressed with xeroform, DSD, and kerlix with offloading boots applied - Wound cx : no growth -Pain control with oxycodone 30mg PO q4h. Confirmed medication and dosage from pharmacy. hold if pt becomes lethargic or drowsy. - dressings changed by podiatry daily. - Patient going to OR thursday morning for BKA of left leg - patient is aware and agreeable to surgery, Dr. Sanchez Acute on chronic kidney disease 2/2 sepsis syndrome - no dialysis at this time. patient followed closely by nephrology. -IVF hydration - continue Sodium bicarb - continuous I/O - renal dose abx - Renal diet - Nephrology consulted - Dr. Winslow, if no improvement, patient will need dialysis. Diabetes type 2 -Humulin low dose ISS -Fingersticks ACHS -Hgb A1c pending -Renal/Consistent carb diet Hypertension -Antihypertensives held due to normotension in the ED in the setting of sepsis HCV -HCV viral RNA qualitative pending DVT prophylaxis -Heparin 5000u SC BID Seen reviewed and discussed with Dr. Celis <Dagmar Celis - Last Filed: 08/09/16 16:05> Objective - Vital Signs/Intake and Output Vital Signs (last 24 hours): Temp Pulse Resp BP Pulse Ox 98.5 F 89 20 137/75 97 08/09/16 12:00 08/09/16 12:00 08/09/16 12:00 08/09/16 12:00 08/09/16 06:00 Intake and Output: 08/09/16 08/09/16 06:59 18:59 Intake Total 240 Output Total 275 Balance -35 - Medications Medications: Current Medications Alprazolam (Xanax) 0.5 mg PO QID PRN; Protocol PRN Reason: Anxiety Last Admin: 08/09/16 10:11 Dose: 0.5 mg Ascorbic Acid (Vitamin C 500 Mg Tab) 500 mg PO BID [facility] Last Admin: 08/09/16 10:12 Dose: 500 mg Calcium Acetate (Phoslo) 667 mg PO WM [facility] Last Admin: 08/09/16 12:00 Dose: 667 mg Famotidine (Pepcid) 40 mg PO HS [facility] Last Admin: 08/08/16 21:55 Dose: 40 mg Heparin Sodium (Porcine) (Heparin) 5,000 units SC Q12 [facility] PRN Reason: Protocol Last Admin: 08/09/16 10:12 Dose: 5,000 units Daptomycin 570 mg/ Sodium (Chloride) 100 mls @ 200 mls/hr IV Q48H [facility] Stop: 08/10/16 10:01 Last Admin: 08/09/16 10:12 Dose: 200 mls/hr Sodium Bicarbonate 75 meq/ (Sodium Chloride) 1,075 mls @ 80 mls/hr IV .[id number] [facility] Last Admin: 08/09/16 08:42 Dose: Not Given Meropenem 500 mg/ Sodium ([facility]) 100 mls @ 100 mls/hr IVPB DAILY [facility] PRN Reason: Protocol Stop: 08/15/16 10:01 Last Admin: 08/09/16 09:00 Dose: 100 mls/hr Insulin Detemir (Levemir) 10 unit SC DAILY [facility] Last Admin: 08/09/16 10:10 Dose: 10 unit Insulin Human Regular (Humulin R High) 0 units SC ACHS [facility] PRN Reason: Protocol Last Admin: 08/09/16 11:30 Dose: Not Given Oxycodone HCl (Oxycodone Immediate Release Tab) 15 mg PO Q6 PRN PRN Reason: Pain, moderate (4-7) Last Admin: 08/09/16 05:04 Dose: 15 mg Polysaccharide Iron Complex (Ferrex-150) 150 mg PO DAILY [facility] Last Admin: 08/09/16 10:12 Dose: 150 mg Trazodone HCl (Desyrel) 25 mg PO HS PRN PRN Reason: Insomnia Zinc Sulfate (Zinc Sulfate 220 Mg Cap) 220 mg PO DAILY [facility] Last Admin: 08/09/16 10:12 Dose: 220 mg - Labs Labs: 08/09/16 06:30 08/09/16 06:30 PT 11.7 Seconds (9.9-11.8) 08/04/16 20:00 INR 1.08 (0.93-1.08) 08/04/16 20:00 APTT 40.4 Seconds (23.7-30.8) H 08/04/16 20:00 Attending/Attestation - Attestation I have personally seen and examined this patient.: Yes I have fully participated in the care of the patient.: Yes I have reviewed all pertinent clinical information, including history, physical exam and plan: Yes Notes (Text): 08/09/16 14:31 attending note; Patient seen and examined with the resident and Dr. Helton today. Patient is a 51 year old female with past medical hsitory of CVA, DM type 2, hypertension, chronic osteomyelitis, PVD HCV, CKD and anemia Is admitted with left lower extremity osteomyelitis. dressing done by podiatry today. Recommending left BKA. currently on schedule for L BKA on thursday. acute on chronic kidney disease;creatinine is 4.5 today. . Slowly Improving. renal failure; renal ultrasound without hydronephrosis. Urine output is increasing. Has segundo catheter in place. ON Hco3 drip. Anemia; secondary to anemia of chronic disease. No active bleeding. 2 units PRBC transfusion given. Got 1 dose of Aranesp. Iron studies ordered.continue by mouth iron. HB is 7.3. might need transfusion before surgery. Cardiology evaluation appreciated. Stress test ordered. Adjustment disorder; psychiatric evaluation appreciated. Continue Xanax. diabetes; adjust insulin. ID evaluation appreciated. History of MRSA ESBL/Pseudomonas in the past. Currently on daptomycin and meropenem dose adjusted. Monitor kidney function closely. patient follows up with ROSSANA capps at [place]. the diagnosis and treatment plan discussed with patient's sister Eve Storm in detail. [phone]. 08/09/16 16:03 08/09/16 16:04
[2016-08-09] MEDS: Insulin Detemir 100 units/ml Vial (Levemir) SC SCH (10:10)
[2016-08-09] MEDS: Iron Complex Polysacch 150mg Cap PO SCH (10:12)
--- NOTE | 2016-08-09 10:14 | CON ---
DATE: 08/09/2016 INDICATIONS: Preoperative evaluation, BKA. HISTORY OF PRESENT ILLNESS: This is a 51-year-old woman admitted on the with multiple medical problems. She has osteomyelitis and a left BKA is planned for Thursday. At this time, there is no chest pain or shortness of breath. I have reviewed her extensive record, she has osteomyelitis which has been chronic involving both feet. She has been undergoing hyperbaric treatment on an outpatient basis. She came on the with fever, chills and sepsis. She has undergone evaluation by podiatry, infectious disease, surgery and the hospitalist team. There is no chest pain, shortness of breath, orthopnea, PND, syncope, presyncope , lightheadedness, dizziness, vertigo, palpitation. There is no abdominal pain , nausea, vomiting, diarrhea, constipation, melena. PAST MEDICAL HISTORY: Extremely complex. She has chronic atrial fibrillation, hypertension, diabetes, remote stroke, acute on chronic kidney disease, PAD with prior peripheral vascular intervention. She is a current smoker with a history of hepatitis C and gallbladder surgery. She has had podiatric surgeries in the past. MEDICATIONS AT THIS TIME: Include daptomycin, Desyrel, iron polysaccharide, subcutaneous heparin, insulin, meropenem, oxycodone, Pepcid, PhosLo, vitamin C, Xanax, zinc sulfate. ALLERGIES: SHE NOTES ALLERGIES TO ACETAMINOPHEN, PENICILLIN, DILAUDID, LINEZOLID. SOCIAL HISTORY: She lives with her daughter. She continues to smoke. She denies alcohol. She is not very ambulatory. FAMILY HISTORY: Noncontributory. REVIEW OF SYSTEMS: Ten point review of systems otherwise unremarkable except as noted above. PHYSICAL EXAMINATION: GENERAL: She is a well-developed woman lying flat in bed on telemetry in no acute distress. VITAL SIGNS: Notable for sinus rhythm at 80 beats per minute. She is afebrile. Blood pressure 106/67, respiratory rate 20, O2 sat 97% on room air. HEENT: Revealed no neck vein distention, thyromegaly, or carotid bruits. Mucous membranes are moist. Conjunctivae are pink. NECK: Supple. LUNGS: [place] clear. HEART: Revealed a regular rhythm. Normal first and second heart sounds. PMI not palpable. ABDOMEN: Soft. Bowel sounds present. No mass, organomegaly. CVA tenderness, palpable abdominal aortic aneurysm. EXTREMITIES: Revealed mild edema. Both feet are bandaged. NEUROLOGIC: Awake, alert and oriented. PSYCHIATRIC: Normal as to mood and affect. LABORATORY AND IMAGING: An echocardiogram reveals normal LV function, no vegetation seen. No significant valve pathology reported. EKG on the revealed sinus tachycardia, poor R-wave progression, nonspecific ST-wave changes. A chest x-ray on the reveals poor inspiration, low lung volumes and crowded bronchovascular markings, mild bibasilar atelectasis. Extremity ultrasound on the revealed no DVT. Recent lab work includes hemoglobin 7.3 , hematocrit 23.4, white count 9800, platelet count 202,000. PT/INR were normal on admission. PTT 40.4. Blood gases are noted. Electrolytes noted. BUN 54, creatinine 4.5, blood sugar 120, magnesium 1.8. IMPRESSION: Portia patient is a 51-year-old woman who was scheduled to undergo left below knee amputation for osteomyelitis in the near future, possibly Thursday. She has a history of paroxysmal atrial fibrillation, diabetes, hypertension, remote stroke, acute on chronic kidney disease, peripheral vascular disease with peripheral vascular intervention, cigarette smoking, hepatitis C, and prior gallbladder surgery. Prior to surgery, I would recommend a [place] nuclear stress test, this can be done on Thursday at the earliest. Surgery will therefore have to be postponed from Thursday to Thursday or later in order to accomplish this. If surgery is undertaken, she should be considered a moderately higher than average risk, due to her multiple metabolic problems including acute on chronic renal failure and diabetes with an unknown coronary status. Remberto Monsivais MD cc: [id number] TT: 08/09/2016 10:14:06 Confirmation # [id number] Dictation # [id number] mihir PATE
--- NOTE | 2016-08-09 14:59 | PN ---
DATE: 08/09/2016 The patient is in bed, no acute distress, nontoxic. PHYSICAL EXAMINATION: VITAL SIGNS: Temperature is 98. Blood pressure is 130/70, respiratory rate of 20. HEENT: Unremarkable. NECK: Supple. LUNGS: Have decreased breath sounds. HEART: Normal S1, S2. ABDOMEN: Soft, nontender. LABORATORY EXAMINATION: Reveals a white count of 9.8, hemoglobin of 7, platelets of 202. Chemistrie s reveal the BUN of 54, creatinine of 4.5. Urinalysis is noted. Serology: Hepatitis C is negative. Review of the orders reveals the patient is on daptomycin which requires renewal, which I did so, m eropenem. ASSESSMENT AND PLAN: A 51-year-old female with sepsis with left foot skin and skin soft tissue infec tion, on daptomycin and meropenem, post-procedure day #5. The patient is scheduled for a below- knee amputation on Thursday. The patient did have an MRI and osteomyelitis is confirmed on the MRI. We wi ll follow closely with you. Edgard Hensley MD cc: [phone] TT: 08/09/2016 14:58:53 Confirmation # [id number] Dictation # [id number] tn
--- NOTE | 2016-08-10 08:16 | CP.PCM.PN ---
Subjective - Date & Time of Evaluation Date of Evaluation: 08/10/16 Time of Evaluation: 08:14 - Subjective Subjective: Surgery: Dr. Sanchez Patient refusing to answer questions this morning. When questions asked patient just laughs. Objective - Vital Signs/Intake and Output Vital Signs (last 24 hours): Temp Pulse Resp BP Pulse Ox 97.7 F 85 18 119/71 97 08/10/16 06:00 08/10/16 06:00 08/10/16 06:00 08/10/16 06:00 08/09/16 06:00 Intake and Output: 08/10/16 08/10/16 06:59 18:59 Intake Total 360 Output Total 1200 Balance -840 - Medications Medications: Current Medications Alprazolam (Xanax) 0.5 mg PO QID PRN; Protocol PRN Reason: Anxiety Last Admin: 08/09/16 10:11 Dose: 0.5 mg Ascorbic Acid (Vitamin C 500 Mg Tab) 500 mg PO BID [facility] Last Admin: 08/09/16 18:16 Dose: 500 mg Calcium Acetate (Phoslo) 667 mg PO WM [facility] Last Admin: 08/09/16 18:16 Dose: 667 mg Famotidine (Pepcid) 40 mg PO HS [facility] Last Admin: 08/09/16 21:17 Dose: 40 mg Heparin Sodium (Porcine) (Heparin) 5,000 units SC Q12 [facility] PRN Reason: Protocol Last Admin: 08/09/16 21:16 Dose: 5,000 units Daptomycin 570 mg/ Sodium (Chloride) 100 mls @ 200 mls/hr IV Q48H [facility]AL[facility] Stop: 08/10/16 10:01 Last Admin: 08/09/16 10:12 Dose: 200 mls/hr Sodium Bicarbonate 75 meq/ (Sodium Chloride) 1,075 mls @ 80 mls/hr IV .[id number] [facility] Last Admin: 08/09/16 22:36 Dose: 80 mls/hr Meropenem 500 mg/ Sodium (Chloride) 100 mls @ 100 mls/hr IVPB DAILY [facility] PRN Reason: Protocol Stop: 08/15/16 10:01 Last Admin: 08/09/16 09:00 Dose: 100 mls/hr Insulin Detemir (Levemir) 10 unit SC DAILY [facility] Last Admin: 08/09/16 10:10 Dose: 10 unit Insulin Human Regular (Humulin R High) 0 units SC ACHS [facility] PRN Reason: Protocol Last Admin: 08/09/16 22:45 Dose: Not Given Oxycodone HCl (Oxycodone Immediate Release Tab) 15 mg PO Q6 PRN PRN Reason: Pain, moderate (4-7) Last Admin: 08/09/16 18:16 Dose: 15 mg Polysaccharide Iron Complex (Ferrex-150) 150 mg PO DAILY [facility] Last Admin: 08/09/16 10:12 Dose: 150 mg Trazodone HCl (Desyrel) 25 mg PO HS PRN PRN Reason: Insomnia Zinc Sulfate (Zinc Sulfate 220 Mg Cap) 220 mg PO DAILY [facility] Last Admin: 08/09/16 10:12 Dose: 220 mg - Labs Labs: 08/09/16 06:30 08/09/16 06:30 PT 11.7 Seconds (9.9-11.8) 08/04/16 20:00 INR 1.08 (0.93-1.08) 08/04/16 20:00 APTT 40.4 Seconds (23.7-30.8) H 08/04/16 20:00 - Constitutional Appears: Non-toxic, No Acute Distress - Head Exam Head Exam: ATRAUMATIC, NORMOCEPHALIC - Eye Exam Eye Exam: EOMI - ENT Exam ENT Exam: Mucous Membranes Moist - Respiratory Exam Respiratory Exam: NORMAL BREATHING PATTERN. absent: Respiratory Distress - Cardiovascular Exam Cardiovascular Exam: REGULAR RHYTHM. absent: Tachycardia - Extremities Exam Additional comments: dressing and support boot on left up to knee dressing appears dry w/ some serouspurulent drainage to heal - Neurological Exam Neurological Exam: Alert, Awake - Skin Skin Exam: Dry, Warm Assessment and Plan - Assessment and Plan (Free Text) Assessment: 51 y/o female w/ OM of LLE and nonhealing LLE wound Plan: -dressing care per podiatry -plan for BKA thursday pending cardiac eval -NPO pmn -per primary patient for stress test in am -am labs -further recs per Dr. Daniel Arroyo PGY1
--- NOTE | 2016-08-10 08:46 | CP.PCM.PN ---
Subjective - Date & Time of Evaluation Date of Evaluation: 08/10/16 Time of Evaluation: 07:00 - Subjective Subjective: Stable on 2R. Case d/w Dr. Celis. V/S noted. RSR. PE: Lungs: clear Cor.: S1S2 Abd.: soft Ext.; wrapped Neuro.: alert I/O= Labs noted: H/H= 7.3/23.4 Objective - Vital Signs/Intake and Output Vital Signs (last 24 hours): Temp Pulse Resp BP Pulse Ox 97.7 F 85 18 119/71 97 08/10/16 06:00 08/10/16 06:00 08/10/16 06:00 08/10/16 06:00 08/09/16 06:00 Intake and Output: 08/10/16 08/10/16 06:59 18:59 Intake Total 360 Output Total 1200 Balance -840 - Medications Medications: Current Medications Alprazolam (Xanax) 0.5 mg PO QID PRN; Protocol PRN Reason: Anxiety Last Admin: 08/09/16 10:11 Dose: 0.5 mg Ascorbic Acid (Vitamin C 500 Mg Tab) 500 mg PO BID [facility] Last Admin: 08/09/16 18:16 Dose: 500 mg Calcium Acetate (Phoslo) 667 mg PO WM [facility] Last Admin: 08/10/16 08:32 Dose: 667 mg Famotidine (Pepcid) 40 mg PO HS [facility] Last Admin: 08/09/16 21:17 Dose: 40 mg Heparin Sodium (Porcine) (Heparin) 5,000 units SC Q12 MAGAL[facility] PRN Reason: Protocol Last Admin: 08/09/16 21:16 Dose: 5,000 units Daptomycin 570 mg/ Sodium (Chloride) 100 mls @ 200 mls/hr IV Q48H [facility] Stop: 08/10/16 10:01 Last Admin: 08/09/16 10:12 Dose: 200 mls/hr Sodium Bicarbonate 75 meq/ (Sodium Chloride) 1,075 mls @ 80 mls/hr IV .[id number] [facility] Last Admin: 08/09/16 22:36 Dose: 80 mls/hr Meropenem 500 mg/ Sodium (Chloride) 100 mls @ 100 mls/hr IVPB DAILY [facility] PRN Reason: Protocol Stop: 08/15/16 10:01 Last Admin: 08/09/16 09:00 Dose: 100 mls/hr Insulin Detemir (Levemir) 10 unit SC DAILY [facility] Last Admin: 08/09/16 10:10 Dose: 10 unit Insulin Human Regular (Humulin R High) 0 units SC ACHS [facility] PRN Reason: Protocol Last Admin: 08/09/16 22:45 Dose: Not Given Oxycodone HCl (Oxycodone Immediate Release Tab) 15 mg PO Q6 PRN PRN Reason: Pain, moderate (4-7) Last Admin: 08/09/16 18:16 Dose: 15 mg Polysaccharide Iron Complex (Ferrex-150) 150 mg PO DAILY [facility] Last Admin: 08/09/16 10:12 Dose: 150 mg Trazodone HCl (Desyrel) 25 mg PO HS PRN PRN Reason: Insomnia Zinc Sulfate (Zinc Sulfate 220 Mg Cap) 220 mg PO DAILY [facility] Last Admin: 08/09/16 10:12 Dose: 220 mg - Labs Labs: 08/09/16 06:30 08/09/16 06:30 PT 11.7 Seconds (9.9-11.8) 08/04/16 20:00 INR 1.08 (0.93-1.08) 08/04/16 20:00 APTT 40.4 Seconds (23.7-30.8) H 08/04/16 20:00 Assessment and Plan - Assessment and Plan (Free Text) Assessment: Fever/Sepsis Osteomyelitis Pre-op left BKA PAF HBP Diabetes CVA CKD PAD/PVI Smoker HCV GB Surgery Plan: Postpone Thursday surgery to allow Pharmacological stress test Thursday AM. Consider transfusion Monitor: labs, H/H, renal fx., sats., etc. As per Hospitalist Team, Surgery, Podiatry, ID, Renal and Psych.
[2016-08-10] MEDS: Meropenem 500 MG in Sodium Chloride 0.9% 100 ML IVPB SCH (09:37)
[2016-08-10] MEDS: Insulin Reg-HIGH-Coverage SC SCH ×4 (09:38→21:29)
[2016-08-10] MEDS: Iron Complex Polysacch 150mg Cap PO SCH (09:43)
[2016-08-10] MEDS: Insulin Detemir 100 units/ml Vial (Levemir) SC SCH ×2 (09:46→10:07)
[2016-08-10] MEDS: oxyCODONE 30 mg Immediate Release Tab PO PRN (10:01)
--- NOTE | 2016-08-10 11:21 | PN ---
DATE: 08/10/2016 The patient is in bed, no acute distress, nontoxic. PHYSICAL EXAMINATION: VITAL SIGNS: Temperature is 97, blood pressure is 119/70, respiratory rate of 18. HEENT: Unremarkable. NECK: Supple. LUNGS: Have decreased breath sounds. HEART: Normal S1, S2. ABDOMEN: Soft, nontender. LABORATORY EXAMINATION: Reveals the white count is down to 9.8, hemoglobin of 7. BUN of 54, creatin ine is 4.5. Urinalysis is noted. Serology reveals the hepatitis C PCR is not detected. Microbiolog y reveals yeast in the urine. Blood cultures are no growth. The left foot cultures are no growth. Review of the orders reveals the patient to be on daptomycin and meropenem. Dr. Remberto Monsivais's note is reviewed. Dr. Tan's progress note is reviewed. ASSESSMENT AND PLAN: A 51-year-old female with sepsis with a left foot skin and skin soft tissue inf ection, on daptomycin and meropenem, post-procedure day #6. The patient is scheduled for a below-the -knee amputation for tomorrow. MRI did show osteomyelitis and after surgery, we will make a decision on duration and antibiotic choice and method of administration based on OR cultures and OR pathology . Edgard Hensley MD cc: [phone] TT: 08/10/2016 11:21:01 Confirmation # [id number] Dictation # [id number] en
[2016-08-10 11:47] LABS: HEMATOCRIT 25.9 % (36.0-48.0); MEAN CORPUSCULAR HEMOGLOBIN 26.9 pg (25.0-35.0); MEAN CORPUSCULAR HGB CONC 31.3 g/dl (31.0-37.0); MEAN PLATELET VOLUME 9.3 fl (7.0-11.0); RED CELL DISTRIBUTION WIDTH 15.3 % (11.5-14.5); WHITE BLOOD COUNT 10.1 10^3/ul (4.5-11.0)
[2016-08-10 11:52] LABS: ALB/GLOB RATIO 0.7 (1.1-1.8); BILIRUBIN,TOTAL 0.3 mg/dL (0.2-1.3); CALCIUM 7.8 mg/dL (8.4-10.5); POTASSIUM 3.8 mmol/L (3.6-5.0); TOTAL PROTEIN 6.3 g/dL (5.8-8.3)
--- NOTE | 2016-08-10 12:06 | PN ---
DATE: 08/10/2016 SUBJECTIVE: The patient is currently seen on telemetry. She is supine in bed. Her left leg is elevated. The patient has agreed to have a left BKA tomorrow. This will likely be done after she has a stress test in the morning. She is awaiting cardiac clearance. Her MRI that was done 2 days ago showed edema of the foot representing possible myositis, patchy edema of the bone consistent with osteomyelitis, plantar fasciitis noted, on the right side. The left side showed cellulitis, osteomyelitis, possible abscesses seen with loculated fluid collections. The patient has agreed to have a left BKA. She remains on antibiotic therapy. She remains on sodium bicarbonate for her metabolic acidosis. She remains on IV fluid hydration. Her creatinine has dropped to 4.5. MEDICATIONS: List reviewed. The patient is currently on Desyrel, iron, heparin , insulin, meropenem, oxycodone, Pepcid, PhosLo, IV fluid with sodium bicarbonate, vitamin C, Xanax, and zinc. OBJECTIVE: INTAKE AND OUTPUT: Intake 360 charted, output 1200. VITAL SIGNS: Blood pressure is 119/71, temperature 97.7, respiratory rate is 18 with a pulse of 85. HEENT: Normocephalic, atraumatic. Conjunctivae are pale. Sclerae are nonicteric. NECK: Supple, no neck vein distention. CHEST: Clear to auscultation and percussion. No rales, no rhonchi, no wheezing. CARDIOVASCULAR: Regular rate and rhythm with a soft systolic murmur left lower sternal border. ABDOMEN: Soft. Bowel sounds normal. No rebound, no guarding, no masses. EXTREMITIES: Show a wrapped left lower extremity, elevated in bed. She also has dressings over her right lower extremity. LABORATORY DATA AND IMAGING: Labs today. CBC from yesterday, white blood cell count 9.8, hemoglobin 7.3 with a platelet count of 202,000. Chemistries from yesterday, sodium 131, BUN 54 with a creatinine of 4.5, CO2 is stable at 18 on sodium bicarbonate in her IV fluids. Potassium is stable at 3.6. Calcium 7.5 with a phosphorus of 5.9. The patient remains on binder therapy. Magnesium level is normal at 1.8, albumin is 2.2, corrected calcium is normal. MICROBIOLOGY: Urine cultures are positive for yeast. Blood cultures are negative at 5 days. Wound cultures from the left lower extremity appear to be negative. ASSESSMENT: 1. Acute renal failure superimposed on chronic kidney disease stage III. The patient's baseline creatinine is in the 1.8 range. This is all in the setting of multiple antibiotics for sepsis, osteomyelitis of her lower extremities and poorly healing diabetic wounds. The patient, in the past, has had Staph aureus , Klebsiella and pseudomonas growing out of her wounds. Currently, her cultures are negative. Workup is consistent with osteomyelitis and possible abscess in her left foot. The patient has kindly agreed to have a left below knee amputation. This will be done post-cardiac clearance tomorrow. From renal standpoint, patient will continue IV fluid with sodium bicarbonate therapy. We will continue to monitor her labs on a regular basis. Workup of her kidneys showed a normal renal ultrasound and urine stain for eosinophils was negative. 2. Mild hyponatremia. This is in the setting of acute renal failure superimposed on chronic kidney disease. 3. Metabolic acidosis. The patient will continue maintenance IV fluids with sodium bicarbonate. 4. History of anemia. Suggest transfusing patient up to at least a hemoglobin of 9 prior to surgery. 5. History of secondary hyperparathyroidism. The patient will continue diet and binders. Phosphorus level remains mildly elevated at 5.9. 6. Past history of interstitial nephritis. This is not the case this time. 7. Lower extremity diabetic wounds, ulcerations, osteomyelitis, possible abscess in her left foot. MRI as noted above. The patient will be having a left below knee amputation tomorrow. PLAN: 1. Discussed with staff on 2R. The patient is stable or perhaps slightly improving from a renal standpoint. 2. Continue IV fluid with sodium bicarbonate. 3. Suggest transfusing patient to a hemoglobin of 9-10. 4. Continue renal diet and binder therapy. 5. Continue to monitor labs on a daily basis. Nick Law MD cc: [id number] TT: 08/10/2016 12:05:13 Confirmation # [id number] Dictation # [id number] en [id number]
--- NOTE | 2016-08-10 12:22 | CP.PCM.PN ---
<Michael Ortega - Last Filed: 08/10/16 12:22> Subjective - Date & Time of Evaluation Date of Evaluation: 08/10/16 Time of Evaluation: 08:25 - Subjective Subjective: Pt was seen and examined at bedside. No acute complaints at this time. No acute or adverse events overnight as per nursing staff. Pt is tolerating diet. Pt denied fever, chills, sob, chest pains, abdominal pains, n/v/d/c. Objective - Vital Signs/Intake and Output Vital Signs (last 24 hours): Temp Pulse Resp BP Pulse Ox 97.7 F 68 18 119/71 97 08/10/16 06:00 08/10/16 10:00 08/10/16 06:00 08/10/16 06:00 08/09/16 06:00 Intake and Output: 08/10/16 08/10/16 06:59 18:59 Intake Total 360 Output Total 1200 Balance -840 - Medications Medications: Current Medications Alprazolam (Xanax) 0.5 mg PO QID PRN; Protocol PRN Reason: Anxiety Last Admin: 08/10/16 10:27 Dose: 0.5 mg Ascorbic Acid (Vitamin C 500 Mg Tab) 500 mg PO BID [facility] Last Admin: 08/10/16 09:43 Dose: 500 mg Calcium Acetate (Phoslo) 667 mg PO WM [facility] Last Admin: 08/10/16 08:32 Dose: 667 mg Famotidine (Pepcid) 40 mg PO HS [facility] Last Admin: 08/09/16 21:17 Dose: 40 mg Heparin Sodium (Porcine) (Heparin) 5,000 units SC Q12 [facility] PRN Reason: Protocol Last Admin: 08/10/16 09:43 Dose: 5,000 units Sodium Bicarbonate 75 meq/ (Sodium Chloride) 1,075 mls @ 80 mls/hr IV .[id number] [facility] Last Admin: 08/10/16 09:42 Dose: Not Given Meropenem 500 mg/ Sodium (Chloride) 100 mls @ 100 mls/hr IVPB DAILY [facility] PRN Reason: Protocol Stop: 08/15/16 10:01 Last Admin: 08/10/16 09:37 Dose: 100 mls/hr Insulin Detemir (Levemir) 10 unit SC DAILY [facility] Last Admin: 06/25/17 10:07 Dose: Not Given Insulin Human Regular (Humulin R High) 0 units SC ACHS [facility] PRN Reason: Protocol Last Admin: 08/10/16 09:38 Dose: Not Given Oxycodone HCl (Oxycodone Immediate Release Tab) 15 mg PO Q6 PRN PRN Reason: Pain, moderate (4-7) Last Admin: 08/10/16 10:01 Dose: 15 mg Polysaccharide Iron Complex (Ferrex-150) 150 mg PO DAILY [facility] Last Admin: 08/10/16 09:43 Dose: 150 mg Trazodone HCl (Desyrel) 25 mg PO HS PRN PRN Reason: Insomnia Zinc Sulfate (Zinc Sulfate 220 Mg Cap) 220 mg PO DAILY [facility] Last Admin: 08/10/16 09:43 Dose: 220 mg - Labs Labs: 08/10/16 11:30 08/10/16 11:30 PT 11.7 Seconds (9.9-11.8) 08/04/16 20:00 INR 1.08 (0.93-1.08) 08/04/16 20:00 APTT 40.4 Seconds (23.7-30.8) H 08/04/16 20:00 - Constitutional Appears: No Acute Distress - Head Exam Head Exam: ATRAUMATIC, NORMAL INSPECTION, NORMOCEPHALIC - Eye Exam Eye Exam: EOMI, Normal appearance, PERRL Pupil Exam: NORMAL ACCOMODATION, PERRL - ENT Exam ENT Exam: Mucous Membranes Moist, Normal Exam - Neck Exam Neck Exam: Full ROM, Normal Inspection. absent: Lymphadenopathy - Respiratory Exam Respiratory Exam: Clear to Ausculation Bilateral, NORMAL BREATHING PATTERN - Cardiovascular Exam Cardiovascular Exam: REGULAR RHYTHM, +S1, +S2. absent: Murmur - GI/Abdominal Exam GI & Abdominal Exam: Soft, Normal Bowel Sounds. absent: Tenderness - Extremities Exam Additional comments: b/l le bandaged and heel booties in place - Neurological Exam Neurological Exam: Alert, Awake, CN II-XII Intact, Oriented x3 - Psychiatric Exam Psychiatric exam: Normal Affect, Normal Mood - Skin Skin Exam: Dry, Intact, Normal Color, Warm Assessment and Plan - Assessment and Plan (Free Text) Assessment: 51 yo female with past medical history of CVA, DM type 2, hypertension, atrial fibrillation, osteomyelitis and HCV admitted for sepsis secondary to infected chronic lower extremity wounds. Xray of left foot reveals signs of osteomyelitis. Sepsis is complicated by acute kidney injury on chronic kidney disease. Patient is on on Daptomycin and Meropenem. Podiatry has recommending left BKA. Patient has agreed with plan as of now. Surgery is planning for amputation on Thursday. Sepsis secondary to osteomyelitis - BKA scheduled for Thursday with Dr. Sanchez. Cardiology consulted for clearance - recommended Nuclear stress test prior to surgery. Will fu with scheduling - Daptomycin 570mg q48hr, Merrem 500mg qdaily - ID following - B/L LE wounds were dressed with xeroform, DSD, and kerlix with offloading boots applied - Wound cx : no growth -Pain control with oxycodone 30mg PO q4h. Confirmed medication and dosage from pharmacy. hold if pt becomes lethargic or drowsy. - dressings changed by podiatry daily. - Patient going to OR thursday morning for BKA of left leg - patient is aware and agreeable to surgery, Dr. Sanchez Acute on chronic kidney disease 2/2 sepsis syndrome - no dialysis at this time. patient followed closely by nephrology. -IVF hydration - continue Sodium bicarb - continuous I/O - renal dose abx - Renal diet - Nephrology consulted - Dr. Winslow, if no improvement, patient will need dialysis. Anemia - Chronic - pt Hgb 7.3 - Type, screen and cross match - transfuse if needed Diabetes type 2 -Humulin low dose ISS -Fingersticks ACHS -Hgb A1c pending -Renal/Consistent carb diet Hypertension -Antihypertensives held due to normotension in the ED in the setting of sepsis HCV -HCV viral RNA qualitative pending DVT prophylaxis -Heparin 5000u SC BID Seen reviewed and discussed with Dr. Celis <Dagmar Celis - Last Filed: 08/10/16 13:43> Objective - Vital Signs/Intake and Output Vital Signs (last 24 hours): Temp Pulse Resp BP Pulse Ox 97.3 F L 85 19 141/72 97 08/10/16 12:00 08/10/16 12:00 08/10/16 12:00 08/10/16 12:00 08/09/16 06:00 Intake and Output: 08/10/16 08/10/16 06:59 18:59 Intake Total 360 Output Total 1200 Balance -840 - Medications Medications: Current Medications Alprazolam (Xanax) 0.5 mg PO QID PRN; Protocol PRN Reason: Anxiety Last Admin: 08/10/16 10:27 Dose: 0.5 mg Ascorbic Acid (Vitamin C 500 Mg Tab) 500 mg PO BID [facility] Last Admin: 08/10/16 09:43 Dose: 500 mg Calcium Acetate (Phoslo) 667 mg PO WM [facility] Last Admin: 08/10/16 13:35 Dose: 667 mg Famotidine (Pepcid) 40 mg PO HS [facility] Last Admin: 08/09/16 21:17 Dose: 40 mg Heparin Sodium (Porcine) (Heparin) 5,000 units SC Q12 [facility] PRN Reason: Protocol Last Admin: 08/10/16 09:43 Dose: 5,000 units Sodium Bicarbonate 75 meq/ (Sodium Chloride) 1,075 mls @ 80 mls/hr IV .[id number] [facility] Last Admin: 08/10/16 09:42 Dose: Not Given Meropenem 500 mg/ Sodium (Chloride) 100 mls @ 100 mls/hr IVPB DAILY [facility] PRN Reason: Protocol Stop: 08/15/16 10:01 Last Admin: 08/10/16 09:37 Dose: 100 mls/hr Insulin Detemir (Levemir) 10 unit SC DAILY [facility] Last Admin: 08/10/16 10:07 Dose: Not Given Insulin Human Regular (Humulin R High) 0 units SC ACHS [facility] PRN Reason: Protocol Last Admin: 08/10/16 09:38 Dose: Not Given Oxycodone HCl (Oxycodone Immediate Release Tab) 15 mg PO Q6 PRN PRN Reason: Pain, moderate (4-7) Last Admin: 08/10/16 10:01 Dose: 15 mg Polysaccharide Iron Complex (Ferrex-150) 150 mg PO DAILY [facility] Last Admin: 08/10/16 09:43 Dose: 150 mg Trazodone HCl (Desyrel) 25 mg PO HS PRN PRN Reason: Insomnia Zinc Sulfate (Zinc Sulfate 220 Mg Cap) 220 mg PO DAILY [facility] Last Admin: 08/10/16 09:43 Dose: 220 mg - Labs Labs: 08/10/16 11:30 08/10/16 11:30 PT 11.7 Seconds (9.9-11.8) 08/04/16 20:00 INR 1.08 (0.93-1.08) 08/04/16 20:00 APTT 40.4 Seconds (23.7-30.8) H 08/04/16 20:00 Attending/Attestation - Attestation I have personally seen and examined this patient.: Yes I have fully participated in the care of the patient.: Yes I have reviewed all pertinent clinical information, including history, physical exam and plan: Yes Notes (Text): 08/10/16 13:39 attending note; Patient seen and examined with the resident. Patient is a 51 year old female with past medical hsitory of CVA, DM type 2, hypertension, chronic osteomyelitis, PVD HCV, CKD and anemia Is admitted with left lower extremity osteomyelitis. Recommending left BKA. currently on schedule for Left BKA on thursday. acute on chronic kidney disease;creatinine is 4.1 today. . Slowly Improving. renal failure; renal ultrasound without hydronephrosis. Has segundo catheter in place. ON Hco3 drip. Anemia; secondary to anemia of chronic disease. No active bleeding. 2 units PRBC transfusion given. Got 1 dose of Aranesp. Iron studies ordered.continue by mouth iron. HB is 8.1. might need transfusion before surgery. Cardiology evaluation appreciated. Stress test in am. Possible surgery on Thursday. Case discussed with cardiology and surgery in detail. Adjustment disorder; psychiatric evaluation appreciated. Continue Xanax. diabetes; adjust insulin. ID evaluation appreciated. History of MRSA ESBL/Pseudomonas in the past. Currently on daptomycin and meropenem dose adjusted. Monitor kidney function closely. patient follows up with [facility] at [facility]. the diagnosis and treatment plan discussed with patient's sister Eve Storm in detail. [phone].
[2016-08-11 06:26] LABS: HEMATOCRIT 25.2 % (36.0-48.0); MEAN CELL VOLUME 87.2 fL (80.0-105.0); MEAN CORPUSCULAR HEMOGLOBIN 26.6 pg (25.0-35.0); MEAN CORPUSCULAR HGB CONC 30.6 g/dl (31.0-37.0); MEAN PLATELET VOLUME 9.1 fl (7.0-11.0); RED CELL DISTRIBUTION WIDTH 15.4 % (11.5-14.5); WHITE BLOOD COUNT 10.4 10^3/ul (4.5-11.0)
[2016-08-11 06:40] LABS: ALB/GLOB RATIO 0.7 (1.1-1.8); BILIRUBIN,TOTAL 0.2 mg/dL (0.2-1.3); CALCIUM 7.6 mg/dL (8.4-10.5); MAGNESIUM 1.9 mg/dL (1.7-2.2); PHOSPHOROUS 5.5 mg/dL (2.5-4.5); POTASSIUM 3.7 mmol/L (3.6-5.0); TOTAL PROTEIN 5.7 g/dL (5.8-8.3)
--- NOTE | 2016-08-11 08:00 | CP.PCM.PN ---
Subjective - Date & Time of Evaluation Date of Evaluation: 08/11/16 Time of Evaluation: 07:56 - Subjective Subjective: Surgery: Dr. Sanchez Patient resting comfortably today. Patient denies pain to the leg. Denies f/c. She understands she is going for stress test today which will postpone the surgery until Thursday. Objective - Vital Signs/Intake and Output Vital Signs (last 24 hours): Temp Pulse Resp BP Pulse Ox 98.4 F 85 22 154/88 H 90 L 08/11/16 06:00 08/11/16 06:00 08/11/16 06:00 08/11/16 06:00 08/11/16 06:00 Intake and Output: 08/11/16 08/11/16 06:59 18:59 Intake Total 500 Output Total 1350 Balance -850 - Medications Medications: Current Medications Alprazolam (Xanax) 0.5 mg PO QID PRN; Protocol PRN Reason: Anxiety Last Admin: 08/10/16 10:27 Dose: 0.5 mg Ascorbic Acid (Vitamin C 500 Mg Tab) 500 mg PO BID [facility] Last Admin: 08/10/16 17:38 Dose: 500 mg Calcium Acetate (Phoslo) 667 mg PO WM [facility] Last Admin: 08/10/16 17:38 Dose: 667 mg Famotidine (Pepcid) 40 mg PO HS [facility] Last Admin: 08/10/16 22:50 Dose: 40 mg Heparin Sodium (Porcine) (Heparin) 5,000 units SC Q12 [facility] PRN Reason: Protocol Last Admin: 08/10/16 22:50 Dose: 5,000 units Sodium Bicarbonate 75 meq/ (Sodium Chloride) 1,075 mls @ 80 mls/hr IV .[id number] [facility] Last Admin: 08/11/16 02:46 Dose: 80 mls/hr Meropenem 500 mg/ Sodium (Chloride) 100 mls @ 100 mls/hr IVPB DAILY [facility] PRN Reason: Protocol Stop: 08/15/16 10:01 Last Admin: 08/10/16 09:37 Dose: 100 mls/hr Insulin Detemir (Levemir) 10 unit SC DAILY [facility] Last Admin: 08/10/16 10:07 Dose: Not Given Insulin Human Regular (Humulin R High) 0 units SC ACHS [facility] PRN Reason: Protocol Last Admin: 08/10/16 21:29 Dose: Not Given Oxycodone HCl (Oxycodone Immediate Release Tab) 15 mg PO Q6 PRN PRN Reason: Pain, moderate (4-7) Last Admin: 08/10/16 10:01 Dose: 15 mg Polysaccharide Iron Complex (Ferrex-150) 150 mg PO DAILY [facility] Last Admin: 08/10/16 09:43 Dose: 150 mg Trazodone HCl (Desyrel) 25 mg PO HS PRN PRN Reason: Insomnia Zinc Sulfate (Zinc Sulfate 220 Mg Cap) 220 mg PO DAILY [facility] Last Admin: 08/10/16 09:43 Dose: 220 mg - Labs Labs: 08/11/16 06:01 08/11/16 06:01 PT 10.8 Seconds (9.9-11.8) 08/11/16 06:01 INR 1.00 (0.93-1.08) 08/11/16 06:01 APTT 35.0 Seconds (23.7-30.8) H 08/11/16 06:01 - Constitutional Appears: Non-toxic, No Acute Distress - Head Exam Head Exam: ATRAUMATIC, NORMOCEPHALIC - Eye Exam Eye Exam: EOMI, Normal appearance - ENT Exam ENT Exam: Mucous Membranes Moist - Respiratory Exam Respiratory Exam: NORMAL BREATHING PATTERN. absent: Respiratory Distress - Cardiovascular Exam Cardiovascular Exam: Irregular Rhythm. absent: Tachycardia - Extremities Exam Additional comments: wrapped w/ Kerlex dressing saturated w/ serousang fluid Assessment and Plan - Assessment and Plan (Free Text) Assessment: 51 y/o female w/ chronic nonhealing LE wound and OM of the heal Plan: -needs BKA, will postpone until after stress test -would like psychiatry to evaluate again and confirm competency for surgical consent -medical management per primary team -further recs per Dr. Daniel Arroyo PGY1
[2016-08-11] MEDS: Meropenem 500 MG in Sodium Chloride 0.9% 100 ML IVPB SCH (09:11)
--- NOTE | 2016-08-11 09:17 | CP.PCM.PN ---
Subjective - Date & Time of Evaluation Date of Evaluation: 08/11/16 Time of Evaluation: 07:00 - Subjective Subjective: Stable on 2R. H/H 7.7/25.2, was not transfused yesterday. Case d/w Dr. Celis , will arrange transfusion today so that nuclear stress test can be done tomorrow. V/S noted. RSR. PE: Lungs: clear Cor.: S1S2 Abd.: soft Ext.; wrapped Neuro.: alert I/O= 500/1350 Labs noted: H/H= 7.7/25.2, Cr.= 3.7, Mg.++= 1.9 Objective - Vital Signs/Intake and Output Vital Signs (last 24 hours): Temp Pulse Resp BP Pulse Ox 98.4 F 85 22 154/88 H 90 L 08/11/16 06:00 08/11/16 06:00 08/11/16 06:00 08/11/16 06:00 08/11/16 06:00 Intake and Output: 08/11/16 08/11/16 06:59 18:59 Intake Total 500 Output Total 1350 Balance -850 - Medications Medications: Current Medications Alprazolam (Xanax) 0.5 mg PO QID PRN; Protocol PRN Reason: Anxiety Last Admin: 08/10/16 10:27 Dose: 0.5 mg Ascorbic Acid (Vitamin C 500 Mg Tab) 500 mg PO BID [facility] Last Admin: 08/10/16 17:38 Dose: 500 mg Calcium Acetate (Phoslo) 667 mg PO WM [facility] Last Admin: 08/11/16 08:01 Dose: 667 mg Famotidine (Pepcid) 40 mg PO HS [facility] Last Admin: 08/10/16 22:50 Dose: 40 mg Heparin Sodium (Porcine) (Heparin) 5,000 units SC Q12 [facility] PRN Reason: Protocol Last Admin: 08/10/16 22:50 Dose: 5,000 units Sodium Bicarbonate 75 meq/ (Sodium Chloride) 1,075 mls @ 80 mls/hr IV .[id number] [facility] Last Admin: 08/11/16 02:46 Dose: 80 mls/hr Meropenem 500 mg/ Sodium (Chloride) 100 mls @ 100 mls/hr IVPB DAILY [facility] PRN Reason: Protocol Stop: 08/15/16 10:01 Last Admin: 08/10/16 09:37 Dose: 100 mls/hr Insulin Detemir (Levemir) 10 unit SC DAILY [facility] Last Admin: 08/10/16 10:07 Dose: Not Given Insulin Human Regular (Humulin R High) 0 units SC ACHS [facility] PRN Reason: Protocol Last Admin: 08/10/16 21:29 Dose: Not Given Oxycodone HCl (Oxycodone Immediate Release Tab) 15 mg PO Q6 PRN PRN Reason: Pain, moderate (4-7) Last Admin: 08/10/16 10:01 Dose: 15 mg Polysaccharide Iron Complex (Ferrex-150) 150 mg PO DAILY [facility] Last Admin: 08/10/16 09:43 Dose: 150 mg Trazodone HCl (Desyrel) 25 mg PO HS PRN PRN Reason: Insomnia Zinc Sulfate (Zinc Sulfate 220 Mg Cap) 220 mg PO DAILY [facility] Last Admin: 08/10/16 09:43 Dose: 220 mg - Labs Labs: 08/11/16 06:01 08/11/16 06:01 PT 10.8 Seconds (9.9-11.8) 08/11/16 06:01 INR 1.00 (0.93-1.08) 08/11/16 06:01 APTT 35.0 Seconds (23.7-30.8) H 08/11/16 06:01 Assessment and Plan - Assessment and Plan (Free Text) Assessment: Fever/Sepsis Osteomyelitis Pre-op left BKA Severe anemia PAF HBP Diabetes CVA CKD PAD/PVI Smoker HCV GB Surgery Plan: Postpone Thursday surgery to allow Pharmacological stress test Tues. AM. ( transfusions today) Monitor: labs, H/H, renal fx., sats., etc. As per Hospitalist Team, Surgery, Podiatry, ID, Renal and Psych.
[2016-08-11] MEDS: Iron Complex Polysacch 150mg Cap PO SCH (09:40)
[2016-08-11] MEDS: Insulin Detemir 100 units/ml Vial (Levemir) SC SCH (09:41)
[2016-08-11] MEDS: Insulin Reg-HIGH-Coverage SC SCH ×4 (09:47→22:35)
--- NOTE | 2016-08-11 10:52 | PN ---
DATE: 08/11/2016 SUBJECTIVE: The patient is seen lying in bed. She is awake, she is alert. She is complaining of pa in in her back and her leg. Also, she is reporting constipation. is at bedside. She appear s very pale. PHYSICAL EXAMINATION: GENERAL: Middle aged lady, lying in bed, in no acute distress. VITAL SIGNS: Blood pressure 154/88, heart rate 85, respiratory rate 22, temperature 98.4. HEENT: Normocephalic, atraumatic, positive pallor, no icterus. NECK: Supple, no JVD. LUNGS: Bilateral equal air entry, bilateral scattered rhonchi, equal expansion. CARDIAC: S1, S2, regular rate and rhythm, no murmur, no rub. ABDOMEN: Obese, distended, soft, nontender, bowel sounds present. EXTREMITIES: Dressing of the left foot, swelling of the toes, dry skin on the toes. Dressing of the right foot. INTAKE AND OUTPUT: 500/1350. LABORATORY DATA: Sodium 137, potassium 3.7, chloride 106, CO2 23, BUN 52, creatinine 3.7, glucose 19 6, calcium 7.6, phosphorus 5.5, magnesium 1.9, albumin 2.3. Iron saturation 17%. WBC of 10.4, hemog lobin 7.7, hematocrit 25, platelets 264. Urine culture, yeast. Blood culture no growth. Wound cult ure no growth. CURRENT MEDICATIONS: Trazodone, Ferrex, heparin, Humulin, Levemir, meropenem, oxycodone, Pepcid, Joelle sLo, IV fluids on hold, ascorbic acid, Xanax, zinc sulfate. ASSESSMENT: A 51-year-old lady with insulin-dependent diabetes mellitus, hypertension, peripheral va scular disease, atrial fibrillation, severe anemia, wound infection, acute kidney injury superimposed on chronic kidney disease stage IV. 1. Acute kidney injury, renal function is slowly improving, creatinine peaked at 5.0, today's creati nine is 3.7. 2. Severe anemia, multifactorial, chronic infection, chronic kidney disease, poor iron stores. 3. Hypertension. Currently not on any antihypertensives. Continue to monitor, p.r.n. restart amlod ipine, but at a lower dose of 5 mg per day. 4. Atrial fibrillation, heart rate controlled. 5. Osteomyelitis. 6. Secondary hyperparathyroidism. 7. Diabetic wounds. PLAN: 1. Monitor blood pressure, restart amlodipine 5 mg daily if blood pressure remains higher than 140/9 0. 2. Avoid nephrotoxins. 3. Agree with blood transfusion. 4. Continue antibiotics. 5. MiraLax for constipation. 6. Will likely require renal replacement therapy in the near future. Nuzhat Winslow MD cc: [id number] TT: 08/11/2016 10:51:33 Confirmation # [id number] Dictation # [id number]
--- NOTE | 2016-08-11 10:57 | CP.PCM.PN ---
<Emeterio Lamb - Last Filed: 08/11/16 11:38> Subjective - Date & Time of Evaluation Date of Evaluation: 08/11/16 Time of Evaluation: 10:56 - Subjective Subjective: Patient seen and examined. No acute events overnight. Patient states she feels weak. Patient agrees to go ahead with surgery. She was explained the need for cardiac clearance with pharmacological stress testing. Patient remains anxious about her medical condition . Objective - Vital Signs/Intake and Output Vital Signs (last 24 hours): Temp Pulse Resp BP Pulse Ox 98.4 F 85 20 154/88 H 90 L 08/11/16 10:47 08/11/16 10:47 08/11/16 10:47 08/11/16 10:47 08/11/16 06:00 Intake and Output: 08/11/16 08/11/16 06:59 18:59 Intake Total 500 0 Output Total 1350 Balance -850 0 - Medications Medications: Current Medications Alprazolam (Xanax) 0.5 mg PO QID PRN; Protocol PRN Reason: Anxiety Last Admin: 08/10/16 10:27 Dose: 0.5 mg Ascorbic Acid (Vitamin C 500 Mg Tab) 500 mg PO BID [facility] Last Admin: 08/11/16 09:40 Dose: 500 mg Calcium Acetate (Phoslo) 667 mg PO WM [facility] Last Admin: 08/11/16 08:01 Dose: 667 mg Famotidine (Pepcid) 40 mg PO HS [facility] Last Admin: 08/10/16 22:50 Dose: 40 mg Heparin Sodium (Porcine) (Heparin) 5,000 units SC Q12 [facility] PRN Reason: Protocol Last Admin: 08/11/16 09:41 Dose: 5,000 units Sodium Bicarbonate 75 meq/ (Sodium Chloride) 1,075 mls @ 80 mls/hr IV .[id number] [facility] Last Admin: 08/11/16 09:48 Dose: Not Given Meropenem 500 mg/ Sodium (Chloride) 100 mls @ 100 mls/hr IVPB DAILY [facility] PRN Reason: Protocol Stop: 08/15/16 10:01 Last Admin: 08/11/16 09:11 Dose: 100 mls/hr Insulin Detemir (Levemir) 10 unit SC DAILY [facility] Last Admin: 08/11/16 09:41 Dose: 10 unit Insulin Human Regular (Humulin R High) 0 units SC ACHS [facility] PRN Reason: Protocol Last Admin: 08/11/16 09:47 Dose: 2 units Oxycodone HCl (Oxycodone Immediate Release Tab) 15 mg PO Q6 PRN PRN Reason: Pain, moderate (4-7) Last Admin: 08/10/16 10:01 Dose: 15 mg Polyethylene Glycol (Miralax) 17 gm PO DAILY [facility] Polysaccharide Iron Complex (Ferrex-150) 150 mg PO DAILY [facility] Last Admin: 08/11/16 09:40 Dose: 150 mg Trazodone HCl (Desyrel) 25 mg PO HS PRN PRN Reason: Insomnia Zinc Sulfate (Zinc Sulfate 220 Mg Cap) 220 mg PO DAILY [facility] Last Admin: 08/11/16 09:40 Dose: 220 mg - Labs Labs: 08/11/16 06:01 08/11/16 06:01 PT 10.8 Seconds (9.9-11.8) 08/11/16 06:01 INR 1.00 (0.93-1.08) 08/11/16 06:01 APTT 35.0 Seconds (23.7-30.8) H 08/11/16 06:01 - Constitutional Appears: Non-toxic, No Acute Distress - Head Exam Head Exam: ATRAUMATIC, NORMOCEPHALIC - Eye Exam Eye Exam: EOMI, PERRL - ENT Exam ENT Exam: Mucous Membranes Moist - Neck Exam Neck Exam: Full ROM, Normal Inspection - Respiratory Exam Respiratory Exam: Clear to Ausculation Bilateral. absent: Rales, Rhonchi, Wheezes - Cardiovascular Exam Cardiovascular Exam: REGULAR RHYTHM, +S1, +S2 - GI/Abdominal Exam GI & Abdominal Exam: Soft, Normal Bowel Sounds. absent: Tenderness - Extremities Exam Additional comments: chronic non-healing ulcers to b/l lower extremities cleaned and dressed. - Neurological Exam Neurological Exam: Alert, Awake, Oriented x3 - Psychiatric Exam Psychiatric exam: Anxious - Skin Skin Exam: Warm Assessment and Plan - Assessment and Plan (Free Text) Assessment: 51 yo female with past medical history of CVA, DM type 2, hypertension, atrial fibrillation, osteomyelitis and HCV admitted for sepsis secondary to infected chronic lower extremity wounds. Xray of left foot reveals signs of osteomyelitis. Sepsis is complicated by acute kidney injury on chronic kidney disease. Patient is on on Merrem. BKA tentatively planned for this week. Patient will be transfused 2u PRBC today. Pharmacological stress test to be done tomorrow. Sepsis secondary to osteomyelitis - BKA tentatively this week - Merrem 500mg qdaily - ID following - B/L LE wounds were dressed with xeroform, DSD, and kerlix with offloading boots applied - Wound cx : no growth -Pain control with oxycodone 30mg PO q4h. Confirmed medication and dosage from pharmacy. hold if pt becomes lethargic or drowsy. - dressings changed by podiatry daily. - Patient going to OR thursday morning for BKA of left leg - patient is aware and agreeable to surgery, Dr. Sanchez Acute on chronic kidney disease 2/2 sepsis syndrome - no dialysis at this time. patient followed closely by nephrology. -IVF hydration - continue Sodium bicarb - continuous I/O - renal dose abx - Renal diet - Nephrology consulted - Dr. Winslow, if no improvement, patient will need dialysis. Anemia - Transfuse 2u PRBC - likely 2/2 chronic disease Diabetes type 2 -Humulin low dose ISS -Fingersticks ACHS -Hgb A1c pending -Renal/Consistent carb diet Hypertension -Antihypertensives held due to normotension in the ED in the setting of sepsis HCV -HCV viral RNA qualitative pending DVT prophylaxis -Heparin 5000u SC BID Seen reviewed and discussed with Dr. Celis <Dagmar Celis - Last Filed: 08/11/16 15:14> Objective - Vital Signs/Intake and Output Vital Signs (last 24 hours): Temp Pulse Resp BP Pulse Ox 98 F 88 20 162/89 H 90 L 08/11/16 14:35 08/11/16 14:35 08/11/16 14:35 08/11/16 14:35 08/11/16 06:00 Intake and Output: 08/11/16 08/11/16 06:59 18:59 Intake Total 500 325 Output Total 1350 Balance -850 325 - Medications Medications: Current Medications Alprazolam (Xanax) 0.5 mg PO QID PRN; Protocol PRN Reason: Anxiety Last Admin: 08/10/16 10:27 Dose: 0.5 mg Ascorbic Acid (Vitamin C 500 Mg Tab) 500 mg PO BID [facility] Last Admin: 08/11/16 09:40 Dose: 500 mg Calcium Acetate (Phoslo) 667 mg PO WM [facility] Last Admin: 08/11/16 13:15 Dose: 667 mg Docusate Sodium (Colace) 100 mg PO BID [facility] Last Admin: 08/11/16 13:15 Dose: 100 mg Famotidine (Pepcid) 40 mg PO HS [facility] Last Admin: 08/10/16 22:50 Dose: 40 mg Heparin Sodium (Porcine) (Heparin) 5,000 units SC Q12 [facility] PRN Reason: Protocol Last Admin: 08/11/16 09:41 Dose: 5,000 units Sodium Bicarbonate 75 meq/ (Sodium Chloride) 1,075 mls @ 80 mls/hr IV .[id number] [facility] Last Admin: 08/11/16 09:48 Dose: Not Given Meropenem 500 mg/ Sodium (Chloride) 100 mls @ 100 mls/hr IVPB DAILY [facility] PRN Reason: Protocol Stop: 08/15/16 10:01 Last Admin: 08/11/16 09:11 Dose: 100 mls/hr Insulin Detemir (Levemir) 10 unit SC DAILY [facility] Last Admin: 08/11/16 09:41 Dose: 10 unit Insulin Human Regular (Humulin R High) 0 units SC ACHS [facility] PRN Reason: Protocol Last Admin: 08/11/16 13:15 Dose: 1 units Oxycodone HCl (Oxycodone Immediate Release Tab) 15 mg PO Q6 PRN PRN Reason: Pain, moderate (4-7) Last Admin: 08/10/16 10:01 Dose: 15 mg Polyethylene Glycol (Miralax) 17 gm PO DAILY [facility] Last Admin: 08/11/16 13:15 Dose: 17 gm Polysaccharide Iron Complex (Ferrex-150) 150 mg PO DAILY [facility] Last Admin: 08/11/16 09:40 Dose: 150 mg Trazodone HCl (Desyrel) 25 mg PO HS PRN PRN Reason: Insomnia Zinc Sulfate (Zinc Sulfate 220 Mg Cap) 220 mg PO DAILY [facility] Last Admin: 08/11/16 09:40 Dose: 220 mg - Labs Labs: 08/11/16 06:01 08/11/16 06:01 PT 10.8 Seconds (9.9-11.8) 08/11/16 06:01 INR 1.00 (0.93-1.08) 08/11/16 06:01 APTT 35.0 Seconds (23.7-30.8) H 08/11/16 06:01 Attending/Attestation - Attestation I have personally seen and examined this patient.: Yes I have fully participated in the care of the patient.: Yes I have reviewed all pertinent clinical information, including history, physical exam and plan: Yes Notes (Text): 08/11/16 15:11 attending note; Patient seen and examined with the resident. getting blood transfusion. Patient is a 51 year old female with past medical hsitory of CVA, DM type 2, hypertension, chronic osteomyelitis, PVD HCV, CKD and anemia Is admitted with left lower extremity osteomyelitis. Recommending left BKA. acute on chronic kidney disease;creatinine is 3.7 today . Slowly Improving. renal failure; renal ultrasound without hydronephrosis. Has segundo catheter in place. ON Hco3 drip. Anemia; secondary to anemia of chronic disease. No active bleeding. 2 units PRBC transfusion given. Got 1 dose of Aranesp. continue by mouth iron. HB is 7.7 today. getting 2 units PRBC transfusion today. Cardiology evaluation appreciated. Stress test in am. case discussed with surgery Dr. Sanchez in detail. Adjustment disorder; psychiatric evaluation appreciated. Continue Xanax. psychiatric re evaluation requested. hypertension; Started on Norvasc. diabetes; adjust insulin. ID evaluation appreciated. History of MRSA ESBL/Pseudomonas in the past. Currently on daptomycin and meropenem dose adjusted. Monitor kidney function closely. patient follows up with ROSSANA capps at [facility].
[2016-08-11] MEDS: POLYETHYLENE GLYCOL 3350 17 GM/Dose PACKET PO SCH (13:15)
--- NOTE | 2016-08-11 15:24 | PN ---
DATE: 08/11/2016 The patient is in bed, in no acute distress, nontoxic. PHYSICAL EXAMINATION: VITAL SIGNS: Temperature is 97, blood pressure is 180/80, respiratory rate of 20. HEENT: Unremarkable. NECK: Supple. LUNGS: Have decreased breath sounds. HEART: Normal S1, S2. ABDOMEN: Soft, nontender. LABORATORY EXAMINATION: Reveals a white count of 10,000, hemoglobin of 7, platelets of 264. Hide Curer lola are noted, creatinine is 3.7. Microbiology is reviewed. Review of orders reveals the patient to be on meropenem. This requires renewal. We will do so. ASSESSMENT AND PLAN: A 51-year-old female with sepsis with a left foot skin and skin soft tissue inf ection, on daptomycin and meropenem, post procedure day #7. The patient is scheduled for a below kne e amputation for today and MRI did show and microbiology revealed Staph aureus, pseudomonas and Klebsiella. The Staphylococcus aureus is oxacillin sensitive, and the pseudomonas and Klebsiella se nsitivity is reviewed. note is reviewed. Waiting for possible below knee amputation once medically cleared and cardiology cleared. Edgard Hensley MD cc: [phone] TT: 08/11/2016 15:23:54 Confirmation # [id number] Dictation # [id number]
[2016-08-12 05:47] LABS: HEMATOCRIT 29.3 % (36.0-48.0); MEAN CELL VOLUME 86.2 fL (80.0-105.0); MEAN CORPUSCULAR HEMOGLOBIN 26.8 pg (25.0-35.0); MEAN CORPUSCULAR HGB CONC 31.1 g/dl (31.0-37.0); MEAN PLATELET VOLUME 9.2 fl (7.0-11.0); RED CELL DISTRIBUTION WIDTH 15.8 % (11.5-14.5); WHITE BLOOD COUNT 12.4 10^3/ul (4.5-11.0)
[2016-08-12 05:59] LABS: ALB/GLOB RATIO 0.7 (1.1-1.8); BILIRUBIN,TOTAL 0.2 mg/dL (0.2-1.3); CALCIUM 7.8 mg/dL (8.4-10.5); TOTAL PROTEIN 5.9 g/dL (5.8-8.3)
[2016-08-12] MEDS: oxyCODONE 30 mg Immediate Release Tab PO PRN ×2 (06:14→20:36)
[2016-08-12] MEDS: Insulin Reg-HIGH-Coverage SC SCH ×4 (08:00→22:21)
--- NOTE | 2016-08-12 09:08 | CP.PCM.PN ---
Subjective - Date & Time of Evaluation Date of Evaluation: 08/12/16 Time of Evaluation: 07:00 - Subjective Subjective: Stable on 2R. No CP or SOB. S/P transfusions yesterday. V/S noted. RSR. PE: Lungs: clear Cor.: S1S2 Abd.: soft Ext.; wrapped Neuro.: alert I/O= 650/2100 Labs noted: H/H= 9.1/29.3, Cr.= 3.1 Objective - Vital Signs/Intake and Output Vital Signs (last 24 hours): Temp Pulse Resp BP Pulse Ox 98.8 F 88 19 155/78 H 97 08/12/16 08:00 08/12/16 08:00 08/12/16 08:00 08/12/16 08:00 08/12/16 08:00 Intake and Output: 08/12/16 08/12/16 06:59 18:59 Intake Total 0 Output Total 2100 Balance -2100 - Medications Medications: Current Medications Alprazolam (Xanax) 0.5 mg PO QID PRN; Protocol PRN Reason: Anxiety Last Admin: 08/10/16 10:27 Dose: 0.5 mg Amlodipine Besylate (Norvasc) 10 mg PO DAILY [facility] Last Admin: 08/11/16 17:22 Dose: 10 mg Ascorbic Acid (Vitamin C 500 Mg Tab) 500 mg PO BID [facility] Last Admin: 08/11/16 17:22 Dose: 500 mg Calcium Acetate (Phoslo) 667 mg PO WM [facility] Last Admin: 08/12/16 08:00 Dose: Not Given Docusate Sodium (Colace) 100 mg PO BID [facility] Last Admin: 08/11/16 17:21 Dose: 100 mg Famotidine (Pepcid) 40 mg PO HS [facility] Last Admin: 08/11/16 22:42 Dose: 40 mg Heparin Sodium (Porcine) (Heparin) 5,000 units SC Q12 [facility] PRN Reason: Protocol Last Admin: 08/12/16 07:17 Dose: Not Given Sodium Bicarbonate 75 meq/ (Sodium Chloride) 1,075 mls @ 80 mls/hr IV .[id number] [facility] Last Admin: 08/12/16 06:11 Dose: 80 mls/hr Meropenem 500 mg/ Sodium (Chloride) 100 mls @ 100 mls/hr IVPB DAILY [facility] PRN Reason: Protocol Stop: 08/15/16 10:01 Last Admin: 08/11/16 09:11 Dose: 100 mls/hr Insulin Detemir (Levemir) 10 unit SC DAILY [facility] Last Admin: 08/11/16 09:41 Dose: 10 unit Insulin Human Regular (Humulin R High) 0 units SC ACHS [facility] PRN Reason: Protocol Last Admin: 08/12/16 08:00 Dose: 2 units Oxycodone HCl (Oxycodone Immediate Release Tab) 15 mg PO Q6 PRN PRN Reason: Pain, moderate (4-7) Last Admin: 08/12/16 06:14 Dose: 15 mg Polyethylene Glycol (Miralax) 17 gm PO DAILY [facility] Last Admin: 08/11/16 13:15 Dose: 17 gm Polysaccharide Iron Complex (Ferrex-150) 150 mg PO DAILY [facility] Last Admin: 08/11/16 09:40 Dose: 150 mg Trazodone HCl (Desyrel) 25 mg PO HS PRN PRN Reason: Insomnia Zinc Sulfate (Zinc Sulfate 220 Mg Cap) 220 mg PO DAILY [facility] Last Admin: 08/11/16 09:40 Dose: 220 mg - Labs Labs: 08/12/16 05:30 08/12/16 05:30 PT 10.8 Seconds (9.9-11.8) 08/11/16 06:01 INR 1.00 (0.93-1.08) 08/11/16 06:01 APTT 35.0 Seconds (23.7-30.8) H 08/11/16 06:01 Assessment and Plan - Assessment and Plan (Free Text) Assessment: Fever/Sepsis Osteomyelitis Pre-op left BKA Severe anemia PAF HBP Diabetes CVA CKD PAD/PVI Smoker HCV GB Surgery Plan: Pharmacological stress test today. Additional recs will follow. As per Hospitalist Team, Surgery, Podiatry, ID, Renal and Psych.
[2016-08-12] MEDS ORDERED: Aminophylline 25 mg/ml Inj ONE (09:20)
[2016-08-12] MEDS: Meropenem 500 MG in Sodium Chloride 0.9% 100 ML IVPB SCH (09:20)
--- NOTE | 2016-08-12 10:08 | CP.PCM.PN ---
Subjective - Date & Time of Evaluation Date of Evaluation: 08/12/16 Time of Evaluation: 07:30 - Subjective Subjective: General Surgery Progress Note for Dr. Sanchez Patient seen and examined at bed. Overnight patient's blood pressure elevated up to 200/94, improved after clonidine was given. Patient complaining of constipation and reports she cannot tolerate Miralax. Patient is aware of cardiac workup today. She also expressed interested in signing out AMA. Objective - Vital Signs/Intake and Output Vital Signs (last 24 hours): Temp Pulse Resp BP Pulse Ox 98.8 F 88 19 155/78 H 97 08/12/16 08:00 08/12/16 08:00 08/12/16 08:00 08/12/16 08:00 08/12/16 08:00 Intake and Output: 08/12/16 08/12/16 06:59 18:59 Intake Total 0 Output Total 2100 Balance -2100 - Medications Medications: Current Medications Alprazolam (Xanax) 0.5 mg PO QID PRN; Protocol PRN Reason: Anxiety Last Admin: 08/10/16 10:27 Dose: 0.5 mg Amlodipine Besylate (Norvasc) 10 mg PO DAILY [facility] Last Admin: 08/11/16 17:22 Dose: 10 mg Ascorbic Acid (Vitamin C 500 Mg Tab) 500 mg PO BID [facility] Last Admin: 08/11/16 17:22 Dose: 500 mg Calcium Acetate (Phoslo) 667 mg PO WM [facility] Last Admin: 08/12/16 08:00 Dose: Not Given Docusate Sodium (Colace) 100 mg PO BID [facility] Last Admin: 08/11/16 17:21 Dose: 100 mg Famotidine (Pepcid) 40 mg PO HS [facility] Last Admin: 08/11/16 22:42 Dose: 40 mg Heparin Sodium (Porcine) (Heparin) 5,000 units SC Q12 [facility] PRN Reason: Protocol Last Admin: 08/12/16 07:17 Dose: Not Given Sodium Bicarbonate 75 meq/ (Sodium Chloride) 1,075 mls @ 80 mls/hr IV .[id number] [facility] Last Admin: 08/12/16 06:11 Dose: 80 mls/hr Meropenem 500 mg/ Sodium (Chloride) 100 mls @ 100 mls/hr IVPB DAILY [facility] PRN Reason: Protocol Stop: 08/15/16 10:01 Last Admin: 08/12/16 09:20 Dose: 100 mls/hr Insulin Detemir (Levemir) 10 unit SC DAILY [facility] Last Admin: 08/11/16 09:41 Dose: 10 unit Insulin Human Regular (Humulin R High) 0 units SC ACHS [facility] PRN Reason: Protocol Last Admin: 08/12/16 08:00 Dose: 2 units Oxycodone HCl (Oxycodone Immediate Release Tab) 15 mg PO Q6 PRN PRN Reason: Pain, moderate (4-7) Last Admin: 08/12/16 06:14 Dose: 15 mg Polyethylene Glycol (Miralax) 17 gm PO DAILY [facility] Last Admin: 08/11/16 13:15 Dose: 17 gm Polysaccharide Iron Complex (Ferrex-150) 150 mg PO DAILY [facility] Last Admin: 08/11/16 09:40 Dose: 150 mg Trazodone HCl (Desyrel) 25 mg PO HS PRN PRN Reason: Insomnia Zinc Sulfate (Zinc Sulfate 220 Mg Cap) 220 mg PO DAILY [facility] Last Admin: 08/11/16 09:40 Dose: 220 mg - Labs Labs: 08/12/16 05:30 08/12/16 05:30 PT 10.8 Seconds (9.9-11.8) 08/11/16 06:01 INR 1.00 (0.93-1.08) 08/11/16 06:01 APTT 35.0 Seconds (23.7-30.8) H 08/11/16 06:01 - Constitutional Appears: Non-toxic, No Acute Distress, Chronically Ill - Head Exam Head Exam: ATRAUMATIC, NORMAL INSPECTION - Eye Exam Eye Exam: EOMI, Normal appearance - ENT Exam ENT Exam: Mucous Membranes Moist - Respiratory Exam Respiratory Exam: NORMAL BREATHING PATTERN. absent: Respiratory Distress - Cardiovascular Exam Cardiovascular Exam: +S1, +S2 - Extremities Exam Additional comments: Bilateral lower extremity wrapped with Kerlex dressing saturated with serosanguinous fluid Assessment and Plan - Assessment and Plan (Free Text) Assessment: 51 year old female with chronic nonhealing LE wound and OM of the heel Plan: -Postponed stress test yesterday due to low hemoglobin -Will BKA after stress test is done and clear by cardiology -Pending psychiatry to evaluate again and confirm competency for surgical consent -Medical management per primary team -Will d/w attending Dr. Sanchez
[2016-08-12] MEDS: Iron Complex Polysacch 150mg Cap PO SCH (11:38)
[2016-08-12] MEDS: Insulin Detemir 100 units/ml Vial (Levemir) SC SCH (11:40)
[2016-08-12] MEDS: POLYETHYLENE GLYCOL 3350 17 GM/Dose PACKET PO SCH (11:41)
--- NOTE | 2016-08-12 13:36 | CP.PCM.PN ---
<Emeterio Lamb - Last Filed: 08/12/16 13:33> Subjective - Date & Time of Evaluation Date of Evaluation: 08/12/16 Time of Evaluation: 10:00 - Subjective Subjective: Patient seen and examined this morning. Noted to be hypertensive overnight which improved with Clonidine. Normotensive this morning. States she is constipated and is requesting Lactulose at this time. Patient continues to complain of generalized weakness. She seems anxious about upcoming surgery. NPO since midnight pending stress test. Objective - Vital Signs/Intake and Output Vital Signs (last 24 hours): Temp Pulse Resp BP Pulse Ox 98.8 F 88 19 155/78 H 97 08/12/16 08:00 08/12/16 08:00 08/12/16 08:00 08/12/16 08:00 08/12/16 08:00 Intake and Output: 08/12/16 08/12/16 06:59 18:59 Intake Total 0 Output Total 2100 Balance -2100 - Medications Medications: Current Medications Alprazolam (Xanax) 0.5 mg PO QID PRN; Protocol PRN Reason: Anxiety Last Admin: 08/10/16 10:27 Dose: 0.5 mg Amlodipine Besylate (Norvasc) 10 mg PO DAILY [facility] Last Admin: 08/12/16 11:41 Dose: Not Given Ascorbic Acid (Vitamin C 500 Mg Tab) 500 mg PO BID [facility] Last Admin: 08/12/16 11:41 Dose: Not Given Calcium Acetate (Phoslo) 667 mg PO WM [facility] Last Admin: 08/12/16 11:48 Dose: Not Given Docusate Sodium (Colace) 100 mg PO BID [facility] Last Admin: 08/12/16 11:38 Dose: Not Given Famotidine (Pepcid) 40 mg PO HS [facility] Last Admin: 08/11/16 22:42 Dose: 40 mg Heparin Sodium (Porcine) (Heparin) 5,000 units SC Q12 [facility] PRN Reason: Protocol Last Admin: 08/12/16 11:38 Dose: Not Given Sodium Bicarbonate 75 meq/ (Sodium Chloride) 1,075 mls @ 80 mls/hr IV .[id number] [facility] Last Admin: 08/12/16 06:11 Dose: 80 mls/hr Meropenem 500 mg/ Sodium (Chloride) 100 mls @ 100 mls/hr IVPB DAILY [facility] PRN Reason: Protocol Stop: 08/15/16 10:01 Last Admin: 08/12/16 09:20 Dose: 100 mls/hr Insulin Detemir (Levemir) 10 unit SC DAILY [facility] Last Admin: 08/12/16 11:40 Dose: Not Given Insulin Human Regular (Humulin R High) 0 units SC ACHS [facility] PRN Reason: Protocol Last Admin: 08/12/16 11:39 Dose: Not Given Oxycodone HCl (Oxycodone Immediate Release Tab) 15 mg PO Q6 PRN PRN Reason: Pain, moderate (4-7) Last Admin: 08/12/16 06:14 Dose: 15 mg Polyethylene Glycol (Miralax) 17 gm PO DAILY [facility] Last Admin: 08/12/16 11:41 Dose: Not Given Polysaccharide Iron Complex (Ferrex-150) 150 mg PO DAILY [facility] Last Admin: 08/12/16 11:38 Dose: Not Given Trazodone HCl (Desyrel) 25 mg PO HS PRN PRN Reason: Insomnia Zinc Sulfate (Zinc Sulfate 220 Mg Cap) 220 mg PO DAILY [facility] Last Admin: 08/12/16 11:42 Dose: Not Given - Labs Labs: 08/12/16 05:30 08/12/16 05:30 PT 10.8 Seconds (9.9-11.8) 08/11/16 06:01 INR 1.00 (0.93-1.08) 08/11/16 06:01 APTT 35.0 Seconds (23.7-30.8) H 08/11/16 06:01 - Constitutional Appears: Non-toxic, No Acute Distress - Head Exam Head Exam: ATRAUMATIC, NORMOCEPHALIC - Eye Exam Eye Exam: EOMI, PERRL - ENT Exam ENT Exam: Mucous Membranes Dry - Neck Exam Neck Exam: Normal Inspection - Respiratory Exam Respiratory Exam: Clear to Ausculation Bilateral. absent: Rales, Rhonchi, Wheezes - Cardiovascular Exam Cardiovascular Exam: REGULAR RHYTHM, +S1, +S2 - GI/Abdominal Exam GI & Abdominal Exam: Soft, Normal Bowel Sounds. absent: Tenderness - Extremities Exam Extremities Exam: absent: Normal Inspection (multiple deep wounds to bilateral distal lower extremities cleaned and dressed. ) - Neurological Exam Neurological Exam: Alert, Awake, Oriented x3 - Psychiatric Exam Psychiatric exam: Anxious, Depressed - Skin Skin Exam: Dry, Warm Assessment and Plan - Assessment and Plan (Free Text) Assessment: 51 yo female with past medical history of CVA, DM type 2, hypertension, atrial fibrillation, osteomyelitis and HCV admitted for sepsis secondary to infected chronic lower extremity wounds. Xray of left foot reveals signs of osteomyelitis. Sepsis is complicated by acute kidney injury on chronic kidney disease. Patient is on on Merrem. Patient for pharmacological stress testing today for cardiac clearance prior to BKA planned for Thursday. Sepsis secondary to osteomyelitis - BKA tentatively Thursday - Merrem 500mg qdaily - ID following - B/L LE wounds were dressed with xeroform, DSD, and kerlix with offloading boots applied -Pain control with oxycodone 30mg PO q4h. Confirmed medication and dosage from pharmacy. hold if pt becomes lethargic or drowsy. - dressings changed daily Acute on chronic kidney disease 2/2 sepsis syndrome - no dialysis at this time. patient followed closely by nephrology. renal function steadily improving - IVF hydration - continue Sodium bicarb - continuous I/O - renal dose abx - Renal diet Anemia - Transfuse 2u PRBC yesterday. Hgb 9.1 - likely 2/2 chronic disease Diabetes type 2 -Humulin low dose ISS -Fingersticks ACHS -Hgb A1c pending -Renal/Consistent carb diet Hypertension -Antihypertensives held due to normotension in the ED in the setting of sepsis HCV -HCV viral RNA qualitative pending DVT prophylaxis -Heparin 5000u SC BID Seen reviewed and discussed with Dr. Celis <Dagmar Celis - Last Filed: 08/12/16 14:45> Objective - Vital Signs/Intake and Output Vital Signs (last 24 hours): Temp Pulse Resp BP Pulse Ox 98.8 F 88 19 155/78 H 97 08/12/16 08:00 08/12/16 08:00 08/12/16 08:00 08/12/16 08:00 08/12/16 08:00 Intake and Output: 08/12/16 08/12/16 06:59 18:59 Intake Total 0 Output Total 2100 Balance -2100 - Medications Medications: Current Medications Alprazolam (Xanax) 0.5 mg PO QID PRN; Protocol PRN Reason: Anxiety Last Admin: 08/10/16 10:27 Dose: 0.5 mg Amlodipine Besylate (Norvasc) 10 mg PO DAILY [facility] Last Admin: 08/12/16 11:41 Dose: Not Given Ascorbic Acid (Vitamin C 500 Mg Tab) 500 mg PO BID [facility] Last Admin: 08/12/16 11:41 Dose: Not Given Calcium Acetate (Phoslo) 667 mg PO WM [facility] Last Admin: 08/12/16 11:48 Dose: Not Given Docusate Sodium (Colace) 100 mg PO BID [facility] Last Admin: 08/12/16 11:38 Dose: Not Given Famotidine (Pepcid) 40 mg PO HS [facility] Last Admin: 08/11/16 22:42 Dose: 40 mg Heparin Sodium (Porcine) (Heparin) 5,000 units SC Q12 [facility] PRN Reason: Protocol Last Admin: 08/12/16 11:38 Dose: Not Given Sodium Bicarbonate 75 meq/ (Sodium Chloride) 1,075 mls @ 80 mls/hr IV .[id number] [facility] Last Admin: 08/12/16 06:11 Dose: 80 mls/hr Meropenem 500 mg/ Sodium (Chloride) 100 mls @ 100 mls/hr IVPB DAILY [facility] PRN Reason: Protocol Stop: 08/15/16 10:01 Last Admin: 08/12/16 09:20 Dose: 100 mls/hr Insulin Detemir (Levemir) 10 unit SC DAILY [facility] Last Admin: 08/12/16 11:40 Dose: Not Given Insulin Human Regular (Humulin R High) 0 units SC ACHS [facility] PRN Reason: Protocol Last Admin: 08/12/16 11:39 Dose: Not Given Oxycodone HCl (Oxycodone Immediate Release Tab) 15 mg PO Q6 PRN PRN Reason: Pain, moderate (4-7) Last Admin: 08/12/16 06:14 Dose: 15 mg Polyethylene Glycol (Miralax) 17 gm PO DAILY [facility] Last Admin: 08/12/16 11:41 Dose: Not Given Polysaccharide Iron Complex (Ferrex-150) 150 mg PO DAILY [facility] Last Admin: 08/12/16 11:38 Dose: Not Given Trazodone HCl (Desyrel) 25 mg PO HS PRN PRN Reason: Insomnia Zinc Sulfate (Zinc Sulfate 220 Mg Cap) 220 mg PO DAILY [facility] Last Admin: 08/12/16 11:42 Dose: Not Given - Labs Labs: 08/12/16 05:30 08/12/16 05:30 PT 10.8 Seconds (9.9-11.8) 08/11/16 06:01 INR 1.00 (0.93-1.08) 08/11/16 06:01 APTT 35.0 Seconds (23.7-30.8) H 08/11/16 06:01 Attending/Attestation - Attestation I have personally seen and examined this patient.: Yes I have fully participated in the care of the patient.: Yes I have reviewed all pertinent clinical information, including history, physical exam and plan: Yes Notes (Text): 08/12/16 14:32 attending note; Patient seen and examined with the resident. Patient is a 51 year old female with past medical hsitory of CVA, DM type 2, hypertension, chronic osteomyelitis, PVD HCV, CKD and anemia Is admitted with left lower extremity osteomyelitis. on merem and acute on chronic kidney disease;creatinine is 3.1 today . Slowly Improving. renal failure; renal ultrasound without hydronephrosis. Has segundo catheter in place. ON Hco3 drip. Anemia; secondary to anemia of chronic disease. No active bleeding. Got 1 dose of Aranesp. continue by mouth iron. Got 2 units PRBC transfusion yesterday. hemoglobin is 9.1 today. Cardiology evaluation appreciated. Stress test completed today. Follow-up with cardiology tomorrow. case discussed with surgery Dr. Sanchez in detail. Adjustment disorder; psychiatric evaluation appreciated. Continue Xanax. psychiatric re evaluation requested. case discussed with Dr. Martin. He will evaluate the patient tomorrow. hypertension; Started on Norvasc. diabetes; adjust insulin. ID evaluation appreciated. Currently on daptomycin and meropenem dose adjusted. Monitor kidney function closely. patient follows up with ROSSANA capps at [place].
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
--- NOTE | 2016-08-12 20:27 | CP.PCM.PN ---
Subjective - Date & Time of Evaluation Date of Evaluation: 08/12/16 Time of Evaluation: 08:00 - Subjective Subjective: WEAK Objective - Vital Signs/Intake and Output Vital Signs (last 24 hours): Temp Pulse Resp BP Pulse Ox 98.4 F 86 20 170/93 H 97 08/12/16 18:00 08/12/16 18:00 08/12/16 18:00 08/12/16 18:00 08/12/16 08:00 Intake and Output: 08/12/16 08/13/16 18:59 06:59 Intake Total 240 Balance 240 - Medications Medications: Current Medications Alprazolam (Xanax) 0.5 mg PO QID PRN; Protocol PRN Reason: Anxiety Last Admin: 08/10/16 10:27 Dose: 0.5 mg Amlodipine Besylate (Norvasc) 10 mg PO DAILY [facility] Last Admin: 08/12/16 11:41 Dose: Not Given Ascorbic Acid (Vitamin C 500 Mg Tab) 500 mg PO BID [facility] Last Admin: 08/12/16 17:00 Dose: 500 mg Calcium Acetate (Phoslo) 667 mg PO WM [facility] Last Admin: 08/12/16 16:34 Dose: 667 mg Docusate Sodium (Colace) 100 mg PO BID [facility] Last Admin: 08/12/16 17:00 Dose: 100 mg Famotidine (Pepcid) 40 mg PO HS [facility] Last Admin: 08/11/16 22:42 Dose: 40 mg Heparin Sodium (Porcine) (Heparin) 5,000 units SC Q12 [facility] PRN Reason: Protocol Last Admin: 08/12/16 11:38 Dose: Not Given Sodium Bicarbonate 75 meq/ (Sodium Chloride) 1,075 mls @ 80 mls/hr IV .[id number] [facility] Last Admin: 08/12/16 16:35 Dose: 80 mls/hr Meropenem 500 mg/ Sodium (Chloride) 100 mls @ 100 mls/hr IVPB DAILY [facility] PRN Reason: Protocol Stop: 08/15/16 10:01 Last Admin: 08/12/16 09:20 Dose: 100 mls/hr Insulin Detemir (Levemir) 10 unit SC DAILY [facility] Last Admin: 08/12/16 11:40 Dose: Not Given Insulin Human Regular (Humulin R High) 0 units SC ACHS [facility] PRN Reason: Protocol Last Admin: 08/12/16 16:36 Dose: 4 units Oxycodone HCl (Oxycodone Immediate Release Tab) 15 mg PO Q6 PRN PRN Reason: Pain, moderate (4-7) Last Admin: 08/12/16 06:14 Dose: 15 mg Polyethylene Glycol (Miralax) 17 gm PO DAILY [facility] Last Admin: 08/12/16 11:41 Dose: Not Given Polysaccharide Iron Complex (Ferrex-150) 150 mg PO DAILY [facility] Last Admin: 08/12/16 11:38 Dose: Not Given Trazodone HCl (Desyrel) 25 mg PO HS PRN PRN Reason: Insomnia Zinc Sulfate (Zinc Sulfate 220 Mg Cap) 220 mg PO DAILY [facility] Last Admin: 08/12/16 11:42 Dose: Not Given - Labs Labs: 08/12/16 05:30 08/12/16 05:30 PT 10.8 Seconds (9.9-11.8) 08/11/16 06:01 INR 1.00 (0.93-1.08) 08/11/16 06:01 APTT 35.0 Seconds (23.7-30.8) H 08/11/16 06:01 - Constitutional Appears: Well - Head Exam Head Exam: ATRAUMATIC, NORMAL INSPECTION, NORMOCEPHALIC - Eye Exam Eye Exam: EOMI, Normal appearance, PERRL Pupil Exam: NORMAL ACCOMODATION, PERRL - ENT Exam ENT Exam: Mucous Membranes Moist, Normal Exam - Neck Exam Neck Exam: Full ROM, Normal Inspection. absent: Lymphadenopathy - Respiratory Exam Respiratory Exam: Clear to Ausculation Bilateral, NORMAL BREATHING PATTERN - Cardiovascular Exam Cardiovascular Exam: REGULAR RHYTHM, +S1, +S2. absent: Murmur - GI/Abdominal Exam GI & Abdominal Exam: Soft, Normal Bowel Sounds. absent: Tenderness - Rectal Exam Rectal Exam: NORMAL INSPECTION - Exam Exam: Circumcision, NORMAL INSPECTION External exam: NORMAL EXTERNAL EXAM Speculum exam: NORMAL SPECULUM EXAM Bimanual exam: NORMAL BIMANUAL EXAM - Extremities Exam Extremities Exam: Full ROM, Normal Capillary Refill, Normal Inspection. absent : Joint Swelling, Pedal Edema - Back Exam Back Exam: NORMAL INSPECTION - Neurological Exam Neurological Exam: Alert, Awake, CN II-XII Intact, Normal Gait, Oriented x3 - Psychiatric Exam Psychiatric exam: Normal Affect, Normal Mood - Skin Skin Exam: Dry, Intact, Normal Color, Warm Assessment and Plan (1) Cellulitis of foot Status: Acute - Assessment and Plan (Free Text) Plan: PRESENT ABX AWAITING SX
--- NOTE | 2016-08-12 21:59 | CARD ---
APPROVED REPORT Protocol: LEXISCAN Test Type: Lexiscan Sestamibi Stress Test Attending Physician: Dr. Remberto Monsivais Referring Physician: Dr. Kenney Cross Test Indications: Pre-op Evaluation. Height:5 ft 6 in Weight:250lbs Medications: Xanax, Vit. C., Phoslo, Pepcid, Heparin, Insulin, Meropenum, Iron, Desyrel, Zinc Medical History: 51 y/o diabetic woman with PAD who is pre-op for left BKA. Target HR: 169 bpm Resting ECG: RSR Resting Heart Rate: 83 bpm Resting Blood Pressure: 162/70mmHg Submaximum (85%): 144 bpm PROCEDURE Pharmacologic stress testing was performed using 0.4mg per 5ml of regadenoson given intravenously over 7-10 seconds. POST EXERCISE Reason for Termination: Protocol completed Target HR: No Max HR: 89 bpm 55% of Maximum Predicted HR: 169 bpm Exercise duration: 05:13 min:sec, 0 Stage Exercise capacity: 1.0METs Max Blood Pressure: 162/70mmHg Blood Pressure response to exercise: Normal Heart Rate response to exercise: Normal Chest Pain: No, None Angina index: 0 Arrhythmia: No, None ST Change: No, None Deviation: 0 mm TEST SUMMARY [id number]. INFUSIONDOSE 101:000.00.01.086/.0.00:27 allie inj over 10 sec, Fady inj at 25 sec. INFUSIONDOSE 201:[id number]/70.0. INFUSIONDOSE 301:[id number]/70.0. INFUSIONDOSE 401:000.00.01.090/.0. INFUSIONDOSE 501:000.00.01.089/.0. INFUSIONDOSE 600:120.00.01.089/.0. INTERPRETATION Stress EKG Conclusion: Lexiscan nuclear stress test which was negative for chest pain, ischemia and arrhythmia. Nuclear scans pending. Signed by Remberto Monsivais Electronically Approved: 08/12/2016 12:15:28 EXAM: Myocardial Perfusion STRESS/REST Stress Test Type: Pharmacologic Imaging Protocol Rest Spect myocardial perfusion imaging was performed in supine position 60 minutes following the injection of 30.7 mCi of Tc-99 Myoview. At peak stress, the patient was injected intravenously with 10.9mCi of Tc-99 tetrofosmin after an infusion time of 0 minutes and 10 seconds. Gated Stress Spect was performed 65 minutes after intravenous Tc-99 Myoview injection. The images were gated to evaluate regional wall motion and calculate ventricular ejection fraction.Images were reconstructed using backfilter projection method in short horizontal and verticle long axis. Spect slices were generated. LV Perfusion The quality of the study is good. The left ventricle is mildly enlarged in size with thickened myocardium. The right ventricle is unremarkable. The lung uptake is within normal limits. The distribution of tracer reveals normal uptake pattern throughout the LV myocardium on the stress study. The rest myocardial perfusion study shows no significant change. Wall Motion Wall motion study shows good contractility of the left ventricle. LVEF = 57%. Conclusion 1. Normal SPECT myocardial perfusion study. 2. Normal gated wall motion of the left ventricle.
[2016-08-13 07:19] LABS: ADD MANUAL DIFF? NO
[2016-08-13 07:37] LABS: BASO # 0.03 K/mm3 (0.0-2.0); BASO % 0.2 % (0.0-3.0); EOS # 0.3 (0.0-0.7); EOS % 2.6 % (1.5-5.0); GRAN # 9.58 (1.4-6.5); GRAN % 75.7 % (50.0-68.0); HEMATOCRIT 32.5 % (36.0-48.0); INR 1.03 (0.93-1.08); LYMPH # 2.1 (1.2-3.4); LYMPH % 16.7 % (22.0-35.0); MEAN CELL VOLUME 87.1 fL (80.0-105.0); MEAN CORPUSCULAR HEMOGLOBIN 27.1 pg (25.0-35.0); MEAN CORPUSCULAR HGB CONC 31.1 g/dl (31.0-37.0); MEAN PLATELET VOLUME 9.6 fl (7.0-11.0); MONO # 0.6 (0.1-0.6); MONO % 4.8 % (1.0-6.0); PARTIAL THROMBOPLASTIN TIME 33.9 Seconds (23.7-30.8); PLATELET COUNT 288 10^3/uL (120.0-450.0); RED CELL DISTRIBUTION WIDTH 15.6 % (11.5-14.5); WHITE BLOOD COUNT 12.7 10^3/ul (4.5-11.0)
[2016-08-13 07:55] LABS: ALB/GLOB RATIO 0.7 (1.1-1.8); BILIRUBIN,TOTAL 0.3 mg/dL (0.2-1.3); CALCIUM 8.7 mg/dL (8.4-10.5); POTASSIUM 3.8 mmol/L (3.6-5.0); TOTAL PROTEIN 6.9 g/dL (5.8-8.3)
--- NOTE | 2016-08-13 08:26 | CP.PCM.PN ---
Subjective - Date & Time of Evaluation Date of Evaluation: 08/13/16 Time of Evaluation: 07:00 - Subjective Subjective: General surgery progress note for Dr. Sanchez Patient seen and examined at bedside. No acute events overnight. Patient states her constipation is improving. Patient is aware of her surgery this Thursday. Denies headache, fever, chills, shortness of breath, chest pain, nausea or vomiting. Objective - Vital Signs/Intake and Output Vital Signs (last 24 hours): Temp Pulse Resp BP Pulse Ox 98.6 F 70 20 156/88 H 94 L 08/13/16 06:00 08/13/16 06:00 08/13/16 06:00 08/13/16 06:00 08/13/16 06:00 Intake and Output: 08/13/16 08/13/16 06:59 18:59 Intake Total 1380 Output Total 2700 Balance -1320 - Medications Medications: Current Medications Alprazolam (Xanax) 0.5 mg PO QID PRN; Protocol PRN Reason: Anxiety Last Admin: 08/10/16 10:27 Dose: 0.5 mg Amlodipine Besylate (Norvasc) 10 mg PO DAILY [facility] Last Admin: 08/12/16 11:41 Dose: Not Given Ascorbic Acid (Vitamin C 500 Mg Tab) 500 mg PO BID [facility] Last Admin: 08/12/16 17:00 Dose: 500 mg Calcium Acetate (Phoslo) 667 mg PO WM [facility] Last Admin: 08/12/16 16:34 Dose: 667 mg Docusate Sodium (Colace) 100 mg PO BID [facility] Last Admin: 08/12/16 17:00 Dose: 100 mg Famotidine (Pepcid) 40 mg PO HS [facility] Last Admin: 08/12/16 22:27 Dose: 40 mg Heparin Sodium (Porcine) (Heparin) 5,000 units SC Q12 [facility] PRN Reason: Protocol Last Admin: 08/12/16 22:27 Dose: 5,000 units Sodium Bicarbonate 75 meq/ (Sodium Chloride) 1,075 mls @ 80 mls/hr IV .[id number] [facility] Last Admin: 08/13/16 06:12 Dose: Not Given Meropenem 500 mg/ Sodium (Chloride) 100 mls @ 100 mls/hr IVPB DAILY [facility] PRN Reason: Protocol Stop: 08/15/16 10:01 Last Admin: 08/12/16 09:20 Dose: 100 mls/hr Insulin Detemir (Levemir) 10 unit SC DAILY [facility] Last Admin: 08/12/16 11:40 Dose: Not Given Insulin Human Regular (Humulin R High) 0 units SC ACHS [facility] PRN Reason: Protocol Last Admin: 08/12/16 22:21 Dose: Not Given Oxycodone HCl (Oxycodone Immediate Release Tab) 15 mg PO Q6 PRN PRN Reason: Pain, moderate (4-7) Last Admin: 08/12/16 20:36 Dose: 15 mg Polyethylene Glycol (Miralax) 17 gm PO DAILY [facility] Last Admin: 08/12/16 11:41 Dose: Not Given Polysaccharide Iron Complex (Ferrex-150) 150 mg PO DAILY [facility] Last Admin: 08/12/16 11:38 Dose: Not Given Trazodone HCl (Desyrel) 25 mg PO HS PRN PRN Reason: Insomnia Zinc Sulfate (Zinc Sulfate 220 Mg Cap) 220 mg PO DAILY [facility] Last Admin: 08/12/16 11:42 Dose: Not Given - Labs Labs: 08/13/16 07:00 08/13/16 07:00 PT 11.1 Seconds (9.9-11.8) 08/13/16 07:00 INR 1.03 (0.93-1.08) 08/13/16 07:00 APTT 33.9 Seconds (23.7-30.8) H 08/13/16 07:00 - Constitutional Appears: Non-toxic, No Acute Distress - Head Exam Head Exam: ATRAUMATIC, NORMAL INSPECTION - Eye Exam Eye Exam: EOMI, Normal appearance - ENT Exam ENT Exam: Mucous Membranes Moist - Respiratory Exam Respiratory Exam: NORMAL BREATHING PATTERN. absent: Respiratory Distress - Cardiovascular Exam Cardiovascular Exam: +S1, +S2 - Extremities Exam Additional comments: Bilateral lower extremity wrapped with Kerlex dressing saturated - Neurological Exam Neurological Exam: Alert, Awake Assessment and Plan - Assessment and Plan (Free Text) Assessment: 51 year old female with chronic nonhealing LE wound and OM of the heel Plan: -Schedule for BKA on Thursday08/15/16 -Stress test performed yesterday -Pending psychiatry to evaluate again and confirm competency for surgical consent -Medical management per primary team -Will d/w attending Dr. Sanchez
[2016-08-13] MEDS: Iron Complex Polysacch 150mg Cap PO SCH (09:44)
[2016-08-13] MEDS: Meropenem 500 MG in Sodium Chloride 0.9% 100 ML IVPB SCH (09:45)
[2016-08-13] MEDS: Insulin Detemir 100 units/ml Vial (Levemir) SC SCH (09:45)
[2016-08-13] MEDS: Insulin Reg-HIGH-Coverage SC SCH ×4 (09:46→21:51)
[2016-08-13] MEDS: POLYETHYLENE GLYCOL 3350 17 GM/Dose PACKET PO SCH (09:49)
--- NOTE | 2016-08-13 10:58 | CP.PCM.PN ---
<Harper Dee - Last Filed: 08/13/16 11:03> Subjective - Date & Time of Evaluation Date of Evaluation: 08/13/16 Time of Evaluation: 10:56 - Subjective Subjective: 51 y/o female seen at bedside with Dr. Helton for bilateral heel ulcerations and left leg ulcerations with exposed tendon. Patient is scheduled for a BKA this 08/15/16. Patient states she is still unhappy with treatment here, but is no longer leaving AMA. Patient reports continued pain but has not been given any pain medications. Patient's dressings are clean, dry, and intact to bilateral lower extremities. Patient denies N/V/F/D/C/SOB. No other pedal complaints at this time. Objective - Vital Signs/Intake and Output Vital Signs (last 24 hours): Temp Pulse Resp BP Pulse Ox 98.6 F 70 20 156/88 H 94 L 08/13/16 06:00 08/13/16 06:00 08/13/16 06:00 08/13/16 09:44 08/13/16 06:00 Intake and Output: 08/13/16 08/13/16 06:59 18:59 Intake Total 1380 Output Total 2700 Balance -1320 - Medications Medications: Current Medications Alprazolam (Xanax) 0.5 mg PO QID PRN; Protocol PRN Reason: Anxiety Last Admin: 08/10/16 10:27 Dose: 0.5 mg Amlodipine Besylate (Norvasc) 10 mg PO DAILY [facility] Last Admin: 08/13/16 09:44 Dose: 10 mg Ascorbic Acid (Vitamin C 500 Mg Tab) 500 mg PO BID [facility] Last Admin: 08/13/16 09:44 Dose: 500 mg Calcium Acetate (Phoslo) 667 mg PO WM [facility] Last Admin: 08/13/16 09:49 Dose: 667 mg Docusate Sodium (Colace) 100 mg PO BID [facility] Last Admin: 08/13/16 09:44 Dose: 100 mg Famotidine (Pepcid) 40 mg PO HS [facility] Last Admin: 08/12/16 22:27 Dose: 40 mg Heparin Sodium (Porcine) (Heparin) 5,000 units SC Q12 [facility] PRN Reason: Protocol Last Admin: 08/13/16 09:44 Dose: 5,000 units Sodium Bicarbonate 75 meq/ (Sodium Chloride) 1,075 mls @ 80 mls/hr IV .[id number] [facility] Last Admin: 08/13/16 06:12 Dose: Not Given Meropenem 500 mg/ Sodium (Chloride) 100 mls @ 100 mls/hr IVPB DAILY [facility] PRN Reason: Protocol Stop: 08/15/16 10:01 Last Admin: 08/13/16 09:45 Dose: 100 mls/hr Insulin Detemir (Levemir) 10 unit SC DAILY [facility] Last Admin: 08/13/16 09:45 Dose: 10 unit Insulin Human Regular (Humulin R High) 0 units SC ACHS [facility] PRN Reason: Protocol Last Admin: 08/13/16 09:46 Dose: Not Given Oxycodone HCl (Oxycodone Immediate Release Tab) 15 mg PO Q6 PRN PRN Reason: Pain, moderate (4-7) Last Admin: 08/12/16 20:36 Dose: 15 mg Polyethylene Glycol (Miralax) 17 gm PO DAILY [facility] Last Admin: 08/13/16 09:49 Dose: Not Given Polysaccharide Iron Complex (Ferrex-150) 150 mg PO DAILY [facility] Last Admin: 08/13/16 09:44 Dose: 150 mg Trazodone HCl (Desyrel) 25 mg PO HS PRN PRN Reason: Insomnia Zinc Sulfate (Zinc Sulfate 220 Mg Cap) 220 mg PO DAILY [facility] Last Admin: 08/13/16 09:44 Dose: 220 mg - Labs Labs: 08/13/16 07:00 08/13/16 07:00 PT 11.1 Seconds (9.9-11.8) 08/13/16 07:00 INR 1.03 (0.93-1.08) 08/13/16 07:00 APTT 33.9 Seconds (23.7-30.8) H 08/13/16 07:00 - Constitutional Appears: Well, Non-toxic, No Acute Distress - Back Exam Additional comments: Dressings to bilateral lower extremities are clean, dry, and intact. - Neurological Exam Neurological Exam: Alert, Awake, Oriented x3 - Psychiatric Exam Psychiatric exam: Normal Affect, Normal Mood Assessment and Plan - Assessment and Plan (Free Text) Assessment: 51 y/o female patient with Schwartz grade 3 left lower extremity ulcer and Schwartz grade 2 right heel ulceration, secondary to DM. Plan: Patient was seen and evaluated at bedside with Dr. Helton Chart, labs and vitals reviewed: WBC 12.7; afebrile Dressings left clean, dry, and intact cont. with IV abx as per ID x rays show OM of calcaneus of left foot, no acute signs of right foot OM Patient going to OR tentavively Thursday, 08/15 for BKA of left leg Rigid multipodus boot ordered for right foot. podiatry will continue to follow while in-house <Casie Helton - Last Filed: 08/23/16 14:43> Objective - Vital Signs/Intake and Output Vital Signs (last 24 hours): Temp Pulse Resp BP Pulse Ox 98.8 F 97 H 19 179/93 H 93 L 08/15/16 00:09 08/15/16 01:51 08/15/16 00:09 08/15/16 01:25 08/15/16 00:09 - Labs Labs: 08/14/16 06:10 08/14/16 06:10 PT 11.1 Seconds (9.9-11.8) 08/13/16 07:00 INR 1.03 (0.93-1.08) 08/13/16 07:00 APTT 33.9 Seconds (23.7-30.8) H 08/13/16 07:00 Attending/Attestation - Attestation I have personally seen and examined this patient.: Yes I have fully participated in the care of the patient.: Yes I have reviewed all pertinent clinical information, including history, physical exam and plan: Yes
--- NOTE | 2016-08-13 11:11 | CP.PCM.PN ---
Subjective - Date & Time of Evaluation Date of Evaluation: 08/13/16 Time of Evaluation: 10:00 - Subjective Subjective: seen for followup lying in bed on telemetry. Feels well. Underwent stress test yesterday. Results were normal. Objective - Vital Signs/Intake and Output Vital Signs (last 24 hours): Temp Pulse Resp BP Pulse Ox 98.6 F 70 20 156/88 H 94 L 08/13/16 06:00 08/13/16 06:00 08/13/16 06:00 08/13/16 09:44 08/13/16 06:00 Intake and Output: 08/13/16 08/13/16 06:59 18:59 Intake Total 1380 Output Total 2700 Balance -1320 - Medications Medications: Current Medications Alprazolam (Xanax) 0.5 mg PO QID PRN; Protocol PRN Reason: Anxiety Last Admin: 08/10/16 10:27 Dose: 0.5 mg Amlodipine Besylate (Norvasc) 10 mg PO DAILY [facility] Last Admin: 08/13/16 09:44 Dose: 10 mg Ascorbic Acid (Vitamin C 500 Mg Tab) 500 mg PO BID [facility] Last Admin: 08/13/16 09:44 Dose: 500 mg Calcium Acetate (Phoslo) 667 mg PO WM [facility] Last Admin: 08/13/16 09:49 Dose: 667 mg Docusate Sodium (Colace) 100 mg PO BID [facility] Last Admin: 08/13/16 09:44 Dose: 100 mg Famotidine (Pepcid) 40 mg PO HS [facility] Last Admin: 08/12/16 22:27 Dose: 40 mg Heparin Sodium (Porcine) (Heparin) 5,000 units SC Q12 [facility] PRN Reason: Protocol Last Admin: 08/13/16 09:44 Dose: 5,000 units Sodium Bicarbonate 75 meq/ (Sodium Chloride) 1,075 mls @ 80 mls/hr IV .[id number] [facility] Last Admin: 08/13/16 06:12 Dose: Not Given Meropenem 500 mg/ Sodium (Chloride) 100 mls @ 100 mls/hr IVPB DAILY [facility] PRN Reason: Protocol Stop: 08/15/16 10:01 Last Admin: 08/13/16 09:45 Dose: 100 mls/hr Insulin Detemir (Levemir) 10 unit SC DAILY [facility] Last Admin: 08/13/16 09:45 Dose: 10 unit Insulin Human Regular (Humulin R High) 0 units SC ACHS [facility] PRN Reason: Protocol Last Admin: 08/13/16 09:46 Dose: Not Given Oxycodone HCl (Oxycodone Immediate Release Tab) 15 mg PO Q6 PRN PRN Reason: Pain, moderate (4-7) Last Admin: 08/12/16 20:36 Dose: 15 mg Polyethylene Glycol (Miralax) 17 gm PO DAILY [facility] Last Admin: 08/13/16 09:49 Dose: Not Given Polysaccharide Iron Complex (Ferrex-150) 150 mg PO DAILY [facility] Last Admin: 08/13/16 09:44 Dose: 150 mg Trazodone HCl (Desyrel) 25 mg PO HS PRN PRN Reason: Insomnia Zinc Sulfate (Zinc Sulfate 220 Mg Cap) 220 mg PO DAILY [facility] Last Admin: 08/13/16 09:44 Dose: 220 mg - Labs Labs: 08/13/16 07:00 08/13/16 07:00 PT 11.1 Seconds (9.9-11.8) 08/13/16 07:00 INR 1.03 (0.93-1.08) 08/13/16 07:00 APTT 33.9 Seconds (23.7-30.8) H 08/13/16 07:00 - Constitutional Appears: No Acute Distress - Respiratory Exam Respiratory Exam: Clear to Ausculation Bilateral - Cardiovascular Exam Cardiovascular Exam: REGULAR RHYTHM - GI/Abdominal Exam GI & Abdominal Exam: Soft, Normal Bowel Sounds - Neurological Exam Neurological Exam: Oriented x3 Assessment and Plan (1) Osteomyelitis Assessment & Plan: stable from cardiac standpoint to proceed with surgery as needed. Status: Acute (2) Elevated troponin Assessment & Plan: doubt true infarct. Likely due to reduced renal clearance Status: Acute (3) NSTEMI (non-ST elevated myocardial infarction) Assessment & Plan: unlikely given normal stress test Status: Acute (4) Renal failure Assessment & Plan: workup in progress Status: Acute - Assessment and Plan (Free Text) Plan: cardiac status stable. Stable to proceed with surgery as needed. Will follow up as needed.
--- NOTE | 2016-08-13 12:03 | CP.PCM.PN ---
<AdonisEmeterio - Last Filed: 08/13/16 11:49> Subjective - Date & Time of Evaluation Date of Evaluation: 08/13/16 Time of Evaluation: 11:50 - Subjective Subjective: Patient seen and examined. Afebrile. Hemodynamically stable. Patient is agreeable to BKA which is scheduled for Thursday. States she feels weak. Objective - Vital Signs/Intake and Output Vital Signs (last 24 hours): Temp Pulse Resp BP Pulse Ox 98.6 F 70 20 156/88 H 94 L 08/13/16 06:00 08/13/16 10:00 08/13/16 06:00 08/13/16 09:44 08/13/16 06:00 Intake and Output: 08/13/16 08/13/16 06:59 18:59 Intake Total 1380 Output Total 2700 Balance -1320 - Medications Medications: Current Medications Alprazolam (Xanax) 0.5 mg PO QID PRN; Protocol PRN Reason: Anxiety Last Admin: 08/10/16 10:27 Dose: 0.5 mg Amlodipine Besylate (Norvasc) 10 mg PO DAILY [facility] Last Admin: 08/13/16 09:44 Dose: 10 mg Ascorbic Acid (Vitamin C 500 Mg Tab) 500 mg PO BID [facility] Last Admin: 08/13/16 09:44 Dose: 500 mg Calcium Acetate (Phoslo) 667 mg PO WM [facility] Last Admin: 08/13/16 09:49 Dose: 667 mg Docusate Sodium (Colace) 100 mg PO BID [facility] Last Admin: 08/13/16 09:44 Dose: 100 mg Famotidine (Pepcid) 40 mg PO HS [facility] Last Admin: 08/12/16 22:27 Dose: 40 mg Heparin Sodium (Porcine) (Heparin) 5,000 units SC Q12 [facility] PRN Reason: Protocol Last Admin: 08/13/16 09:44 Dose: 5,000 units Sodium Bicarbonate 75 meq/ (Sodium Chloride) 1,075 mls @ 80 mls/hr IV .[id number] [facility] Last Admin: 08/13/16 06:12 Dose: Not Given Meropenem 500 mg/ Sodium (Chloride) 100 mls @ 100 mls/hr IVPB DAILY [facility] PRN Reason: Protocol Stop: 08/15/16 10:01 Last Admin: 08/13/16 09:45 Dose: 100 mls/hr Insulin Detemir (Levemir) 10 unit SC DAILY [facility] Last Admin: 08/13/16 09:45 Dose: 10 unit Insulin Human Regular (Humulin R High) 0 units SC ACHS [facility] PRN Reason: Protocol Last Admin: 08/13/16 09:46 Dose: Not Given Oxycodone HCl (Oxycodone Immediate Release Tab) 15 mg PO Q6 PRN PRN Reason: Pain, moderate (4-7) Last Admin: 08/12/16 20:36 Dose: 15 mg Polyethylene Glycol (Miralax) 17 gm PO DAILY [facility] Last Admin: 08/13/16 09:49 Dose: Not Given Polysaccharide Iron Complex (Ferrex-150) 150 mg PO DAILY [facility] Last Admin: 08/13/16 09:44 Dose: 150 mg Trazodone HCl (Desyrel) 25 mg PO HS PRN PRN Reason: Insomnia Zinc Sulfate (Zinc Sulfate 220 Mg Cap) 220 mg PO DAILY [facility] Last Admin: 08/13/16 09:44 Dose: 220 mg - Labs Labs: 08/13/16 07:00 08/13/16 07:00 PT 11.1 Seconds (9.9-11.8) 08/13/16 07:00 INR 1.03 (0.93-1.08) 08/13/16 07:00 APTT 33.9 Seconds (23.7-30.8) H 08/13/16 07:00 - Constitutional Appears: Non-toxic, No Acute Distress - Head Exam Head Exam: ATRAUMATIC, NORMOCEPHALIC - Eye Exam Eye Exam: EOMI, PERRL - ENT Exam ENT Exam: Mucous Membranes Moist - Neck Exam Neck Exam: Normal Inspection - Respiratory Exam Respiratory Exam: Clear to Ausculation Bilateral. absent: Rales, Rhonchi, Wheezes - Cardiovascular Exam Cardiovascular Exam: REGULAR RHYTHM, +S1, +S2 - GI/Abdominal Exam GI & Abdominal Exam: Soft, Normal Bowel Sounds. absent: Tenderness - Extremities Exam Additional comments: multiple wounds to b/l lower extremities extending into subcutaneous fat. - Neurological Exam Neurological Exam: Alert, Awake, Oriented x3 - Psychiatric Exam Psychiatric exam: Anxious, Depressed - Skin Skin Exam: Dry, Warm Assessment and Plan - Assessment and Plan (Free Text) Assessment: 51 yo female with past medical history of CVA, DM type 2, hypertension, atrial fibrillation, osteomyelitis and HCV admitted for sepsis secondary to infected chronic lower extremity wounds. Xray of left foot reveals signs of osteomyelitis. Sepsis is complicated by acute kidney injury on chronic kidney disease. Patient is on on Merrem. Pharmacological stress testing is negative and patient is cleared for surgery by cardiology. Patient is scheduled for BKA Thursday. Sepsis secondary to osteomyelitis - BKA Thursday - Merrem 500mg qdaily, Daptomycin IV - ID following - B/L LE wounds dressed with xeroform, DSD, and kerlix with offloading boots applied -Pain control with oxycodone 30mg PO q4h. Confirmed medication and dosage from pharmacy. hold if pt becomes lethargic or drowsy. - dressings changed daily Acute on chronic kidney disease 2/2 sepsis syndrome - resolving - renal function steadily improving - IVF hydration - continue Sodium bicarb - continuous I/O - renal dose abx - Renal diet Anemia - Transfuse 2u PRBC yesterday. - likely 2/2 chronic disease Diabetes type 2 -Humulin low dose ISS -Fingersticks ACHS -Hgb A1c pending -Renal/Consistent carb diet Hypertension -Antihypertensives held due to normotension in the ED in the setting of sepsis HCV -HCV viral RNA qualitative pending DVT prophylaxis -Heparin 5000u SC BID Patient seen and discussed with attending. <Francisco Arteaga - Last Filed: 08/13/16 13:26> Objective - Vital Signs/Intake and Output Vital Signs (last 24 hours): Temp Pulse Resp BP Pulse Ox 97.8 F 78 20 143/67 94 L 08/13/16 12:00 08/13/16 12:00 08/13/16 12:00 08/13/16 12:00 08/13/16 06:00 Intake and Output: 08/13/16 08/13/16 06:59 18:59 Intake Total 1380 Output Total 2700 Balance -1320 - Medications Medications: Current Medications Alprazolam (Xanax) 0.5 mg PO QID PRN; Protocol PRN Reason: Anxiety Last Admin: 08/10/16 10:27 Dose: 0.5 mg Amlodipine Besylate (Norvasc) 10 mg PO DAILY [facility] Last Admin: 08/13/16 09:44 Dose: 10 mg Ascorbic Acid (Vitamin C 500 Mg Tab) 500 mg PO BID [facility] Last Admin: 08/13/16 09:44 Dose: 500 mg Calcium Acetate (Phoslo) 667 mg PO WM [facility] Last Admin: 08/13/16 12:05 Dose: 667 mg Docusate Sodium (Colace) 100 mg PO BID [facility] Last Admin: 08/13/16 09:44 Dose: 100 mg Famotidine (Pepcid) 40 mg PO HS [facility] Last Admin: 08/12/16 22:27 Dose: 40 mg Heparin Sodium (Porcine) (Heparin) 5,000 units SC Q12 [facility] PRN Reason: Protocol Last Admin: 08/13/16 09:44 Dose: 5,000 units Sodium Bicarbonate 75 meq/ (Sodium Chloride) 1,075 mls @ 80 mls/hr IV .[id number] [facility] Last Admin: 08/13/16 06:12 Dose: Not Given Meropenem 500 mg/ Sodium (Chloride) 100 mls @ 100 mls/hr IVPB DAILY [facility] PRN Reason: Protocol Stop: 08/15/16 10:01 Last Admin: 08/13/16 09:45 Dose: 100 mls/hr Insulin Detemir (Levemir) 10 unit SC DAILY [facility] Last Admin: 08/13/16 09:45 Dose: 10 unit Insulin Human Regular (Humulin R High) 0 units SC ACHS [facility] PRN Reason: Protocol Last Admin: 08/13/16 12:01 Dose: Not Given Oxycodone HCl (Oxycodone Immediate Release Tab) 15 mg PO Q6 PRN PRN Reason: Pain, moderate (4-7) Last Admin: 08/12/16 20:36 Dose: 15 mg Polyethylene Glycol (Miralax) 17 gm PO DAILY [facility] Last Admin: 08/13/16 09:49 Dose: Not Given Polysaccharide Iron Complex (Ferrex-150) 150 mg PO DAILY [facility] Last Admin: 08/13/16 09:44 Dose: 150 mg Trazodone HCl (Desyrel) 25 mg PO HS PRN PRN Reason: Insomnia Zinc Sulfate (Zinc Sulfate 220 Mg Cap) 220 mg PO DAILY [facility] Last Admin: 08/13/16 09:44 Dose: 220 mg - Labs Labs: 08/13/16 07:00 08/13/16 07:00 PT 11.1 Seconds (9.9-11.8) 08/13/16 07:00 INR 1.03 (0.93-1.08) 08/13/16 07:00 APTT 33.9 Seconds (23.7-30.8) H 08/13/16 07:00 Attending/Attestation - Attestation I have personally seen and examined this patient.: Yes I have fully participated in the care of the patient.: Yes I have reviewed all pertinent clinical information, including history, physical exam and plan: Yes Notes (Text): 08/13/16 13:22 51 year old female with past medical history of diabetes, hypertension, CVA, PVD , chronic OM, CKD and anemia who presented with sepsis secondary to LLE OM. Continue with iv antibiotics as per ID. Continue with wound care as per ID. Surgery is following and plan is for possible BKA on Thursday; patient is currently agreeable. She had stress test yesterday which was negative. Patient also had acute on chronic kidney which is improving on IVF. Nephrology is following. She had anemia which has improved after PRBC transfusion. Psychiatry evaluation was requested as well earlier this week which is still pending. Francisco Arteaga MD Hospitalist.
[2016-08-14 06:21] LABS: ADD MANUAL DIFF? NO
[2016-08-14 06:42] LABS: ALB/GLOB RATIO 0.7 (1.1-1.8); BILIRUBIN,TOTAL 0.2 mg/dL (0.2-1.3); CALCIUM 8.2 mg/dL (8.4-10.5); POTASSIUM 3.6 mmol/L (3.6-5.0); TOTAL PROTEIN 6.1 g/dL (5.8-8.3)
[2016-08-14 07:15] LABS: BASO # 0.02 K/mm3 (0.0-2.0); BASO % 0.2 % (0.0-3.0); EOS # 0.4 (0.0-0.7); EOS % 3.4 % (1.5-5.0); GRAN % 73.6 % (50.0-68.0); HEMATOCRIT 28.8 % (36.0-48.0); LYMPH # 2.1 (1.2-3.4); LYMPH % 17.7 % (22.0-35.0); MEAN CELL VOLUME 87.5 fL (80.0-105.0); MEAN CORPUSCULAR HEMOGLOBIN 26.4 pg (25.0-35.0); MEAN CORPUSCULAR HGB CONC 30.2 g/dl (31.0-37.0); MEAN PLATELET VOLUME 9.6 fl (7.0-11.0); MONO # 0.6 (0.1-0.6); MONO % 5.1 % (1.0-6.0); PLATELET COUNT 259 10^3/uL (120.0-450.0); RED CELL DISTRIBUTION WIDTH 15.5 % (11.5-14.5); WHITE BLOOD COUNT 11.6 10^3/ul (4.5-11.0)
[2016-08-14] MEDS: Insulin Reg-HIGH-Coverage SC SCH ×4 (07:40→22:18)
--- NOTE | 2016-08-14 09:06 | CP.PCM.PN ---
Subjective - Date & Time of Evaluation Date of Evaluation: 08/14/16 Time of Evaluation: 07:50 - Subjective Subjective: General surgery progress note for Dr. Sanchez Patient seen and examined at bedside. No acute events overnight. Patient is tolerating diet well. Patient is aware of her surgery tomorrow. Denies headache , fever, chills, shortness of breath, chest pain, nausea or vomiting. Objective - Vital Signs/Intake and Output Vital Signs (last 24 hours): Temp Pulse Resp BP Pulse Ox 98.8 F 87 18 145/79 95 08/14/16 06:00 08/14/16 06:00 08/14/16 06:00 08/14/16 06:00 08/14/16 06:00 Intake and Output: 08/14/16 08/14/16 06:59 18:59 Intake Total 340 Output Total 1000 Balance -660 - Medications Medications: Current Medications Alprazolam (Xanax) 0.5 mg PO QID PRN; Protocol PRN Reason: Anxiety Last Admin: 08/10/16 10:27 Dose: 0.5 mg Amlodipine Besylate (Norvasc) 10 mg PO DAILY [facility] Last Admin: 08/13/16 09:44 Dose: 10 mg Ascorbic Acid (Vitamin C 500 Mg Tab) 500 mg PO BID [facility] Last Admin: 08/13/16 17:52 Dose: 500 mg Calcium Acetate (Phoslo) 667 mg PO WM [facility] Last Admin: 08/14/16 08:06 Dose: 667 mg Docusate Sodium (Colace) 100 mg PO BID [facility] Last Admin: 08/13/16 17:52 Dose: 100 mg Famotidine (Pepcid) 40 mg PO HS [facility] Last Admin: 08/13/16 21:53 Dose: 40 mg Heparin Sodium (Porcine) (Heparin) 5,000 units SC Q12 [facility] PRN Reason: Protocol Last Admin: 08/13/16 21:53 Dose: 5,000 units Hydralazine HCl (Apresoline) 10 mg IVP Q6H PRN PRN Reason: Systolic Blood Pressure Last Admin: 08/14/16 00:01 Dose: 10 mg Sodium Bicarbonate 75 meq/ (Sodium Chloride) 1,075 mls @ 80 mls/hr IV .[id number] [facility] Last Admin: 08/13/16 20:10 Dose: Not Given Meropenem 500 mg/ Sodium (Chloride) 100 mls @ 100 mls/hr IVPB DAILY [facility] PRN Reason: Protocol Stop: 08/15/16 10:01 Last Admin: 08/13/16 09:45 Dose: 100 mls/hr Insulin Detemir (Levemir) 10 unit SC DAILY [facility] Last Admin: 08/13/16 09:45 Dose: 10 unit Insulin Human Regular (Humulin R High) 0 units SC ACHS [facility] PRN Reason: Protocol Last Admin: 08/14/16 07:40 Dose: Not Given Oxycodone HCl (Oxycodone Immediate Release Tab) 15 mg PO Q6 PRN PRN Reason: Pain, moderate (4-7) Last Admin: 08/12/16 20:36 Dose: 15 mg Polyethylene Glycol (Miralax) 17 gm PO DAILY [facility] Last Admin: 08/13/16 09:49 Dose: Not Given Polysaccharide Iron Complex (Ferrex-150) 150 mg PO DAILY [facility] Last Admin: 08/13/16 09:44 Dose: 150 mg Trazodone HCl (Desyrel) 25 mg PO HS PRN PRN Reason: Insomnia Zinc Sulfate (Zinc Sulfate 220 Mg Cap) 220 mg PO DAILY [facility] Last Admin: 08/13/16 09:44 Dose: 220 mg - Labs Labs: 08/14/16 06:10 08/14/16 06:10 PT 11.1 Seconds (9.9-11.8) 08/13/16 07:00 INR 1.03 (0.93-1.08) 08/13/16 07:00 APTT 33.9 Seconds (23.7-30.8) H 08/13/16 07:00 - Constitutional Appears: Non-toxic, No Acute Distress - Head Exam Head Exam: ATRAUMATIC, NORMAL INSPECTION - Eye Exam Eye Exam: Normal appearance - ENT Exam ENT Exam: Mucous Membranes Moist - Respiratory Exam Respiratory Exam: NORMAL BREATHING PATTERN. absent: Respiratory Distress - Cardiovascular Exam Cardiovascular Exam: +S1, +S2 - GI/Abdominal Exam GI & Abdominal Exam: Soft - Extremities Exam Additional comments: Bilateral lower extremity wrapped with Kerlex dressing Assessment and Plan - Assessment and Plan (Free Text) Assessment: 51 year old female with chronic nonhealing LE wound and OM of the heel Plan: -Schedule for BKA tomorrow -Stress test performed yesterday, stable to proceed surgery per cardiology -Patient is competent to make health care decisions per psychiatry -Medical management per primary team -Will d/w attending Dr. Sanchez
--- NOTE | 2016-08-14 09:17 | CP.PCM.PN ---
<Harper Dee - Last Filed: 08/14/16 09:14> Subjective - Date & Time of Evaluation Date of Evaluation: 08/14/16 Time of Evaluation: 09:14 - Subjective Subjective: 51 y/o female seen at bedside with Dr. Helton for bilateral heel ulcerations and left leg ulcerations with exposed tendon. Patient is scheduled for a BKA this 08/15/16. Patient states she is still unhappy with treatment here, but is no longer leaving AMA. Patient reports continued pain but has not been given any pain medications. Dressings to right leg are noted to be clean, dry and intact however, serosanguinous strikethrough is noted to dressings of left lower extremity. Patient admits to walking on dressings in order to use the bathroom. Patient denies N/V/F/D/C/SOB. No other pedal complaints at this time. Objective - Vital Signs/Intake and Output Vital Signs (last 24 hours): Temp Pulse Resp BP Pulse Ox 98.8 F 87 18 145/79 95 08/14/16 06:00 08/14/16 06:00 08/14/16 06:00 08/14/16 06:00 08/14/16 06:00 Intake and Output: 08/14/16 08/14/16 06:59 18:59 Intake Total 340 Output Total 1000 Balance -660 - Medications Medications: Current Medications Alprazolam (Xanax) 0.5 mg PO QID PRN; Protocol PRN Reason: Anxiety Last Admin: 08/10/16 10:27 Dose: 0.5 mg Amlodipine Besylate (Norvasc) 10 mg PO DAILY [facility] Last Admin: 08/13/16 09:44 Dose: 10 mg Ascorbic Acid (Vitamin C 500 Mg Tab) 500 mg PO BID [facility] Last Admin: 08/13/16 17:52 Dose: 500 mg Calcium Acetate (Phoslo) 667 mg PO WM [facility] Last Admin: 08/14/16 08:06 Dose: 667 mg Docusate Sodium (Colace) 100 mg PO BID [facility] Last Admin: 08/13/16 17:52 Dose: 100 mg Famotidine (Pepcid) 40 mg PO HS [facility] Last Admin: 08/13/16 21:53 Dose: 40 mg Heparin Sodium (Porcine) (Heparin) 5,000 units SC Q12 [facility] PRN Reason: Protocol Last Admin: 08/13/16 21:53 Dose: 5,000 units Hydralazine HCl (Apresoline) 10 mg IVP Q6H PRN PRN Reason: Systolic Blood Pressure Last Admin: 08/14/16 00:01 Dose: 10 mg Sodium Bicarbonate 75 meq/ (Sodium Chloride) 1,075 mls @ 80 mls/hr IV .[id number] [facility] Last Admin: 08/13/16 20:10 Dose: Not Given Meropenem 500 mg/ Sodium (Chloride) 100 mls @ 100 mls/hr IVPB DAILY [facility] PRN Reason: Protocol Stop: 08/15/16 10:01 Last Admin: 08/13/16 09:45 Dose: 100 mls/hr Insulin Detemir (Levemir) 10 unit SC DAILY [facility] Last Admin: 08/13/16 09:45 Dose: 10 unit Insulin Human Regular (Humulin R High) 0 units SC ACHS [facility] PRN Reason: Protocol Last Admin: 08/14/16 07:40 Dose: Not Given Oxycodone HCl (Oxycodone Immediate Release Tab) 15 mg PO Q6 PRN PRN Reason: Pain, moderate (4-7) Last Admin: 08/12/16 20:36 Dose: 15 mg Polyethylene Glycol (Miralax) 17 gm PO DAILY [facility] Last Admin: 08/13/16 09:49 Dose: Not Given Polysaccharide Iron Complex (Ferrex-150) 150 mg PO DAILY [facility] Last Admin: 08/13/16 09:44 Dose: 150 mg Trazodone HCl (Desyrel) 25 mg PO HS PRN PRN Reason: Insomnia Zinc Sulfate (Zinc Sulfate 220 Mg Cap) 220 mg PO DAILY [facility] Last Admin: 08/13/16 09:44 Dose: 220 mg - Labs Labs: 08/14/16 06:10 08/14/16 06:10 PT 11.1 Seconds (9.9-11.8) 08/13/16 07:00 INR 1.03 (0.93-1.08) 08/13/16 07:00 APTT 33.9 Seconds (23.7-30.8) H 08/13/16 07:00 - Constitutional Appears: Non-toxic, No Acute Distress - Extremities Exam Additional comments: B/L lower extremity examination: Vascular: DP pulse faintly palpable; PT pulse non-palpable B/L; CFT <3 sec x 10 ; temperature gradient WNL, no peripheral edema noted Neuro: Protective sensation grossly diminished bilaterally Derm: Right LE: Full thickness ulceration present at plantar medial aspect of heel. Wound base consists of a mixture of fibrogranular tissue. There is moderate serous drainage, malodor noted; no purulence, negative probe to bone, no clinical signs of infection noted Left LE: extensive ulceration noted starting from the plantar midfoot and extending proximally to the posterior aspect of the lower leg in the region of the distal Achilles tendon. Wound base is a mixture of granular and fibrous tissue with large amounts of serosanguinous drainage present secondary to patient walking on ulcer. Mild purulent drainage noted, mild malodor noted. Negative for probe to bone; no evidence of cellulitis at this time - Neurological Exam Neurological Exam: Alert, Awake, Oriented x3 - Psychiatric Exam Psychiatric exam: Normal Affect, Normal Mood Assessment and Plan - Assessment and Plan (Free Text) Assessment: 51 y/o female patient with Schwartz grade 3 left lower extremity ulcer and Schwartz grade 2 right heel ulceration, secondary to DM. Plan: Patient was seen and evaluated at bedside with Dr. Helton Chart, labs and vitals reviewed: WBC 11.6 trending down from 12.7 yesterday (); afebrile Dressings left with moderate amounts of serosanguinous strikethrough but otherwise intact cont. with IV abx as per ID x rays show OM of calcaneus of left foot, no acute signs of right foot OM Patient going to OR tentavively Thursday, 08/15 for BKA of left leg Rigid multipodus boot ordered for right foot. Right ulcer dressed with betadine, xeroform, DSD Left foot and leg ulcer dressed with xeroform, ABD, kirlix, MERI podiatry will continue to follow while in-house <Casie Helton - Last Filed: 08/23/16 14:46> Objective - Vital Signs/Intake and Output Vital Signs (last 24 hours): Temp Pulse Resp BP Pulse Ox 98.8 F 97 H 19 179/93 H 93 L 08/15/16 00:09 08/15/16 01:51 08/15/16 00:09 08/15/16 01:25 08/15/16 00:09 - Labs Labs: 08/14/16 06:10 08/14/16 06:10 PT 11.1 Seconds (9.9-11.8) 08/13/16 07:00 INR 1.03 (0.93-1.08) 08/13/16 07:00 APTT 33.9 Seconds (23.7-30.8) H 08/13/16 07:00 Attending/Attestation - Attestation I have personally seen and examined this patient.: Yes I have fully participated in the care of the patient.: Yes I have reviewed all pertinent clinical information, including history, physical exam and plan: Yes
[2016-08-14] MEDS: Insulin Detemir 100 units/ml Vial (Levemir) SC SCH (09:26)
[2016-08-14] MEDS: Iron Complex Polysacch 150mg Cap PO SCH (09:26)
[2016-08-14] MEDS: POLYETHYLENE GLYCOL 3350 17 GM/Dose PACKET PO SCH (09:27)
[2016-08-14] MEDS: Meropenem 500 MG in Sodium Chloride 0.9% 100 ML IVPB SCH (09:27)
--- NOTE | 2016-08-14 10:25 | CP.PCM.PN ---
Subjective - Date & Time of Evaluation Date of Evaluation: 08/13/16 Time of Evaluation: 08:00 - Subjective Subjective: WEAK Objective - Vital Signs/Intake and Output Vital Signs (last 24 hours): Temp Pulse Resp BP Pulse Ox 98.8 F 87 18 145/79 95 08/14/16 06:00 08/14/16 06:00 08/14/16 06:00 08/14/16 09:26 08/14/16 06:00 Intake and Output: 08/14/16 08/14/16 06:59 18:59 Intake Total 340 Output Total 1000 Balance -660 - Medications Medications: Current Medications Alprazolam (Xanax) 0.5 mg PO QID PRN; Protocol PRN Reason: Anxiety Last Admin: 08/10/16 10:27 Dose: 0.5 mg Amlodipine Besylate (Norvasc) 10 mg PO DAILY [facility] Last Admin: 08/14/16 09:26 Dose: 10 mg Ascorbic Acid (Vitamin C 500 Mg Tab) 500 mg PO BID [facility] Last Admin: 08/14/16 09:26 Dose: 500 mg Calcium Acetate (Phoslo) 667 mg PO WM [facility] Last Admin: 08/14/16 08:06 Dose: 667 mg Docusate Sodium (Colace) 100 mg PO BID [facility] Last Admin: 08/14/16 09:25 Dose: 100 mg Famotidine (Pepcid) 40 mg PO HS [facility] Last Admin: 08/13/16 21:53 Dose: 40 mg Heparin Sodium (Porcine) (Heparin) 5,000 units SC Q12 [facility] PRN Reason: Protocol Last Admin: 08/14/16 09:27 Dose: 5,000 units Hydralazine HCl (Apresoline) 10 mg IVP Q6H PRN PRN Reason: Systolic Blood Pressure Last Admin: 08/14/16 00:01 Dose: 10 mg Sodium Bicarbonate 75 meq/ (Sodium Chloride) 1,075 mls @ 80 mls/hr IV .[id number] [facility] Last Admin: 08/14/16 09:28 Dose: 80 mls/hr Meropenem 500 mg/ Sodium (Chloride) 100 mls @ 100 mls/hr IVPB DAILY [facility] PRN Reason: Protocol Stop: 08/15/16 10:01 Last Admin: 08/14/16 09:27 Dose: 100 mls/hr Insulin Detemir (Levemir) 10 unit SC DAILY [facility] Last Admin: 08/14/16 09:26 Dose: 10 unit Insulin Human Regular (Humulin R High) 0 units SC ACHS [facility] PRN Reason: Protocol Last Admin: 08/14/16 07:40 Dose: Not Given Oxycodone HCl (Oxycodone Immediate Release Tab) 15 mg PO Q6 PRN PRN Reason: Pain, moderate (4-7) Last Admin: 08/12/16 20:36 Dose: 15 mg Polyethylene Glycol (Miralax) 17 gm PO DAILY [facility] Last Admin: 08/14/16 09:27 Dose: Not Given Polysaccharide Iron Complex (Ferrex-150) 150 mg PO DAILY [facility] Last Admin: 08/14/16 09:26 Dose: 150 mg Trazodone HCl (Desyrel) 25 mg PO HS PRN PRN Reason: Insomnia Zinc Sulfate (Zinc Sulfate 220 Mg Cap) 220 mg PO DAILY [facility] Last Admin: 08/14/16 09:25 Dose: 220 mg - Labs Labs: 08/14/16 06:10 08/14/16 06:10 PT 11.1 Seconds (9.9-11.8) 08/13/16 07:00 INR 1.03 (0.93-1.08) 08/13/16 07:00 APTT 33.9 Seconds (23.7-30.8) H 08/13/16 07:00 - Constitutional Appears: Well - Head Exam Head Exam: ATRAUMATIC, NORMAL INSPECTION, NORMOCEPHALIC - Eye Exam Eye Exam: EOMI, Normal appearance, PERRL Pupil Exam: NORMAL ACCOMODATION, PERRL - ENT Exam ENT Exam: Mucous Membranes Moist, Normal Exam - Neck Exam Neck Exam: Full ROM, Normal Inspection. absent: Lymphadenopathy - Respiratory Exam Respiratory Exam: Clear to Ausculation Bilateral, NORMAL BREATHING PATTERN - Cardiovascular Exam Cardiovascular Exam: REGULAR RHYTHM, +S1, +S2. absent: Murmur - GI/Abdominal Exam GI & Abdominal Exam: Soft, Normal Bowel Sounds. absent: Tenderness - Rectal Exam Rectal Exam: NORMAL INSPECTION - Exam Exam: Circumcision, NORMAL INSPECTION External exam: NORMAL EXTERNAL EXAM Speculum exam: NORMAL SPECULUM EXAM Bimanual exam: NORMAL BIMANUAL EXAM - Extremities Exam Extremities Exam: Full ROM, Normal Capillary Refill, Normal Inspection. absent : Joint Swelling, Pedal Edema - Back Exam Back Exam: NORMAL INSPECTION - Neurological Exam Neurological Exam: Alert, Awake, CN II-XII Intact, Normal Gait, Oriented x3 - Psychiatric Exam Psychiatric exam: Normal Affect, Normal Mood - Skin Skin Exam: Dry, Intact, Normal Color, Warm Assessment and Plan (1) Cellulitis of foot Status: Acute - Assessment and Plan (Free Text) Plan: PABX AWAITING SX
--- NOTE | 2016-08-14 10:26 | CP.PCM.PN ---
Subjective - Date & Time of Evaluation Date of Evaluation: 08/14/16 Time of Evaluation: 08:00 - Subjective Subjective: DOING BETTER Objective - Vital Signs/Intake and Output Vital Signs (last 24 hours): Temp Pulse Resp BP Pulse Ox 98.8 F 87 18 145/79 95 08/14/16 06:00 08/14/16 06:00 08/14/16 06:00 08/14/16 09:26 08/14/16 06:00 Intake and Output: 08/14/16 08/14/16 06:59 18:59 Intake Total 340 Output Total 1000 Balance -660 - Medications Medications: Current Medications Alprazolam (Xanax) 0.5 mg PO QID PRN; Protocol PRN Reason: Anxiety Last Admin: 08/10/16 10:27 Dose: 0.5 mg Amlodipine Besylate (Norvasc) 10 mg PO DAILY [facility] Last Admin: 08/14/16 09:26 Dose: 10 mg Ascorbic Acid (Vitamin C 500 Mg Tab) 500 mg PO BID [facility] Last Admin: 08/14/16 09:26 Dose: 500 mg Calcium Acetate (Phoslo) 667 mg PO WM [facility] Last Admin: 08/14/16 08:06 Dose: 667 mg Docusate Sodium (Colace) 100 mg PO BID [facility] Last Admin: 08/14/16 09:25 Dose: 100 mg Famotidine (Pepcid) 40 mg PO HS [facility] Last Admin: 08/13/16 21:53 Dose: 40 mg Heparin Sodium (Porcine) (Heparin) 5,000 units SC Q12 [facility] PRN Reason: Protocol Last Admin: 08/14/16 09:27 Dose: 5,000 units Hydralazine HCl (Apresoline) 10 mg IVP Q6H PRN PRN Reason: Systolic Blood Pressure Last Admin: 08/14/16 00:01 Dose: 10 mg Sodium Bicarbonate 75 meq/ (Sodium Chloride) 1,075 mls @ 80 mls/hr IV .[id number] [facility] Last Admin: 08/14/16 09:28 Dose: 80 mls/hr Meropenem 500 mg/ Sodium (Chloride) 100 mls @ 100 mls/hr IVPB DAILY [facility] PRN Reason: Protocol Stop: 08/15/16 10:01 Last Admin: 08/14/16 09:27 Dose: 100 mls/hr Insulin Detemir (Levemir) 10 unit SC DAILY [facility] Last Admin: 08/14/16 09:26 Dose: 10 unit Insulin Human Regular (Humulin R High) 0 units SC ACHS [facility] PRN Reason: Protocol Last Admin: 08/14/16 07:40 Dose: Not Given Oxycodone HCl (Oxycodone Immediate Release Tab) 15 mg PO Q6 PRN PRN Reason: Pain, moderate (4-7) Last Admin: 08/12/16 20:36 Dose: 15 mg Polyethylene Glycol (Miralax) 17 gm PO DAILY [facility] Last Admin: 08/14/16 09:27 Dose: Not Given Polysaccharide Iron Complex (Ferrex-150) 150 mg PO DAILY [facility] Last Admin: 08/14/16 09:26 Dose: 150 mg Trazodone HCl (Desyrel) 25 mg PO HS PRN PRN Reason: Insomnia Zinc Sulfate (Zinc Sulfate 220 Mg Cap) 220 mg PO DAILY [facility] Last Admin: 08/14/16 09:25 Dose: 220 mg - Labs Labs: 08/14/16 06:10 08/14/16 06:10 PT 11.1 Seconds (9.9-11.8) 08/13/16 07:00 INR 1.03 (0.93-1.08) 08/13/16 07:00 APTT 33.9 Seconds (23.7-30.8) H 08/13/16 07:00 - Constitutional Appears: Well - Head Exam Head Exam: ATRAUMATIC, NORMAL INSPECTION, NORMOCEPHALIC - Eye Exam Eye Exam: EOMI, Normal appearance, PERRL Pupil Exam: NORMAL ACCOMODATION, PERRL - ENT Exam ENT Exam: Mucous Membranes Moist, Normal Exam - Neck Exam Neck Exam: Full ROM, Normal Inspection. absent: Lymphadenopathy - Respiratory Exam Respiratory Exam: Clear to Ausculation Bilateral, NORMAL BREATHING PATTERN - Cardiovascular Exam Cardiovascular Exam: REGULAR RHYTHM, +S1, +S2. absent: Murmur - GI/Abdominal Exam GI & Abdominal Exam: Soft, Normal Bowel Sounds. absent: Tenderness - Rectal Exam Rectal Exam: NORMAL INSPECTION - Exam Exam: Circumcision, NORMAL INSPECTION External exam: NORMAL EXTERNAL EXAM Speculum exam: NORMAL SPECULUM EXAM Bimanual exam: NORMAL BIMANUAL EXAM - Extremities Exam Extremities Exam: Full ROM, Normal Capillary Refill, Normal Inspection. absent : Joint Swelling, Pedal Edema - Back Exam Back Exam: NORMAL INSPECTION - Neurological Exam Neurological Exam: Alert, Awake, CN II-XII Intact, Normal Gait, Oriented x3 - Psychiatric Exam Psychiatric exam: Normal Affect, Normal Mood - Skin Skin Exam: Dry, Intact, Normal Color, Warm Assessment and Plan (1) Cellulitis of foot Status: Acute - Assessment and Plan (Free Text) Plan: ABX PENDING SX
--- NOTE | 2016-08-14 11:28 | CP.PCM.PN ---
<Emeterio Lamb - Last Filed: 08/14/16 11:38> Subjective - Date & Time of Evaluation Date of Evaluation: 08/14/16 Time of Evaluation: 11:24 - Subjective Subjective: Patient seen and examined this morning. Patient was OOB and walking last night and noted to be bleeding from left leg wound. Found to be smoking in the bathroom. Patient advised on the importance of smoking cessation. Nicotine patch was offered but patient refused stating she is allergic. Patient tentatively scheduled for BKA tomorrow. Objective - Vital Signs/Intake and Output Vital Signs (last 24 hours): Temp Pulse Resp BP Pulse Ox 98.8 F 87 18 145/79 95 08/14/16 06:00 08/14/16 06:00 08/14/16 06:00 08/14/16 09:26 08/14/16 06:00 Intake and Output: 08/14/16 08/14/16 06:59 18:59 Intake Total 340 Output Total 1000 Balance -660 - Medications Medications: Current Medications Alprazolam (Xanax) 0.5 mg PO QID PRN; Protocol PRN Reason: Anxiety Last Admin: 08/10/16 10:27 Dose: 0.5 mg Amlodipine Besylate (Norvasc) 10 mg PO DAILY [facility] Last Admin: 08/14/16 09:26 Dose: 10 mg Ascorbic Acid (Vitamin C 500 Mg Tab) 500 mg PO BID [facility] Last Admin: 08/14/16 09:26 Dose: 500 mg Calcium Acetate (Phoslo) 667 mg PO WM [facility] Last Admin: 08/14/16 08:06 Dose: 667 mg Docusate Sodium (Colace) 100 mg PO BID [facility] Last Admin: 08/14/16 09:25 Dose: 100 mg Famotidine (Pepcid) 40 mg PO HS [facility] Last Admin: 08/13/16 21:53 Dose: 40 mg Heparin Sodium (Porcine) (Heparin) 5,000 units SC Q12 [facility] PRN Reason: Protocol Last Admin: 08/14/16 09:27 Dose: 5,000 units Hydralazine HCl (Apresoline) 10 mg IVP Q6H PRN PRN Reason: Systolic Blood Pressure Last Admin: 08/14/16 00:01 Dose: 10 mg Sodium Bicarbonate 75 meq/ (Sodium Chloride) 1,075 mls @ 80 mls/hr IV .[id number] [facility] Last Admin: 08/14/16 09:28 Dose: 80 mls/hr Meropenem 500 mg/ Sodium (Chloride) 100 mls @ 100 mls/hr IVPB DAILY [facility] PRN Reason: Protocol Stop: 08/15/16 10:01 Last Admin: 08/14/16 09:27 Dose: 100 mls/hr Insulin Detemir (Levemir) 10 unit SC DAILY [facility] Last Admin: 08/14/16 09:26 Dose: 10 unit Insulin Human Regular (Humulin R High) 0 units SC ACHS [facility] PRN Reason: Protocol Last Admin: 08/14/16 07:40 Dose: Not Given Oxycodone HCl (Oxycodone Immediate Release Tab) 15 mg PO Q6 PRN PRN Reason: Pain, moderate (4-7) Last Admin: 08/12/16 20:36 Dose: 15 mg Polyethylene Glycol (Miralax) 17 gm PO DAILY [facility] Last Admin: 08/14/16 09:27 Dose: Not Given Polysaccharide Iron Complex (Ferrex-150) 150 mg PO DAILY [facility] Last Admin: 08/14/16 09:26 Dose: 150 mg Trazodone HCl (Desyrel) 25 mg PO HS PRN PRN Reason: Insomnia Zinc Sulfate (Zinc Sulfate 220 Mg Cap) 220 mg PO DAILY [facility] Last Admin: 08/14/16 09:25 Dose: 220 mg - Labs Labs: 08/14/16 06:10 08/14/16 06:10 PT 11.1 Seconds (9.9-11.8) 08/13/16 07:00 INR 1.03 (0.93-1.08) 08/13/16 07:00 APTT 33.9 Seconds (23.7-30.8) H 08/13/16 07:00 - Constitutional Appears: Non-toxic, No Acute Distress - Head Exam Head Exam: ATRAUMATIC, NORMOCEPHALIC - Eye Exam Eye Exam: EOMI, PERRL - ENT Exam ENT Exam: Mucous Membranes Dry - Neck Exam Neck Exam: Full ROM, Normal Inspection - Respiratory Exam Respiratory Exam: Clear to Ausculation Bilateral. absent: Rales, Rhonchi, Wheezes - Cardiovascular Exam Cardiovascular Exam: REGULAR RHYTHM, +S1, +S2 - GI/Abdominal Exam GI & Abdominal Exam: Soft, Normal Bowel Sounds. absent: Tenderness - Extremities Exam Additional comments: chronic wounds to b/l lower extremities cleaned and dressed. small amount of blood noted on left heel dressings. - Neurological Exam Neurological Exam: Alert, Awake, Oriented x3 - Psychiatric Exam Psychiatric exam: Normal Affect, Normal Mood - Skin Skin Exam: Dry, Warm Assessment and Plan - Assessment and Plan (Free Text) Assessment: 51 yo female with past medical history of CVA, DM type 2, hypertension, atrial fibrillation, osteomyelitis and HCV admitted for sepsis secondary to infected chronic lower extremity wounds. Xray of left foot reveals signs of osteomyelitis. Sepsis is complicated by acute kidney injury on chronic kidney disease. Patient is on on Merrem. Pharmacological stress testing is negative and patient is cleared for surgery by cardiology. Patient is scheduled for BKA Thursday. Sepsis secondary to osteomyelitis - BKA Thursday - Merrem 500mg qdaily, Daptomycin IV - ID following - B/L LE wounds dressed with xeroform, DSD, and kerlix with offloading boots applied -Pain control with oxycodone 30mg PO q4h. Confirmed medication and dosage from pharmacy. hold if pt becomes lethargic or drowsy. - dressings changed daily Acute on chronic kidney disease 2/2 sepsis syndrome - resolving - renal function steadily improving - IVF hydration - continue Sodium bicarb - continuous I/O - renal dose abx - Renal diet Anemia - 8.7 - type and crossmatch - Transfuse 2u PRBC yesterday. - likely 2/2 chronic disease Diabetes type 2 -Humulin low dose ISS -Fingersticks ACHS -Hgb A1c pending -Renal/Consistent carb diet Hypertension -Antihypertensives held due to normotension in the ED in the setting of sepsis HCV -HCV viral RNA qualitative pending DVT prophylaxis -Heparin 5000u SC BID Patient seen and discussed with attending. <Dagmar Celis - Last Filed: 08/14/16 15:38> Objective - Vital Signs/Intake and Output Vital Signs (last 24 hours): Temp Pulse Resp BP Pulse Ox 98.2 F 89 20 177/105 H 95 08/14/16 12:00 08/14/16 12:00 08/14/16 12:00 08/14/16 12:15 08/14/16 06:00 Intake and Output: 08/14/16 08/14/16 06:59 18:59 Intake Total 340 Output Total 1000 Balance -660 - Medications Medications: Current Medications Alprazolam (Xanax) 0.5 mg PO QID PRN; Protocol PRN Reason: Anxiety Last Admin: 08/10/16 10:27 Dose: 0.5 mg Amlodipine Besylate (Norvasc) 10 mg PO DAILY [facility] Last Admin: 08/14/16 09:26 Dose: 10 mg Ascorbic Acid (Vitamin C 500 Mg Tab) 500 mg PO BID [facility] Last Admin: 08/14/16 09:26 Dose: 500 mg Calcium Acetate (Phoslo) 667 mg PO WM [facility] Last Admin: 08/14/16 11:56 Dose: 667 mg Docusate Sodium (Colace) 100 mg PO BID [facility] Last Admin: 08/14/16 09:25 Dose: 100 mg Famotidine (Pepcid) 40 mg PO HS [facility] Last Admin: 08/13/16 21:53 Dose: 40 mg Heparin Sodium (Porcine) (Heparin) 5,000 units SC Q12 [facility] PRN Reason: Protocol Last Admin: 08/14/16 09:27 Dose: 5,000 units Hydralazine HCl (Apresoline) 10 mg IVP Q6H PRN PRN Reason: Systolic Blood Pressure Last Admin: 08/14/16 12:15 Dose: 10 mg Sodium Bicarbonate 75 meq/ (Sodium Chloride) 1,075 mls @ 80 mls/hr IV .[id number] [facility] Last Admin: 08/14/16 09:28 Dose: 80 mls/hr Meropenem 500 mg/ Sodium (Chloride) 100 mls @ 100 mls/hr IVPB DAILY [facility] PRN Reason: Protocol Stop: 08/15/16 10:01 Last Admin: 08/14/16 09:27 Dose: 100 mls/hr Insulin Detemir (Levemir) 10 unit SC DAILY [facility] Last Admin: 08/14/16 09:26 Dose: 10 unit Insulin Human Regular (Humulin R High) 0 units SC ACHS [facility] PRN Reason: Protocol Last Admin: 08/14/16 11:56 Dose: 2 units Oxycodone HCl (Oxycodone Immediate Release Tab) 15 mg PO Q6 PRN PRN Reason: Pain, moderate (4-7) Last Admin: 08/12/16 20:36 Dose: 15 mg Polyethylene Glycol (Miralax) 17 gm PO DAILY [facility] Last Admin: 08/14/16 09:27 Dose: Not Given Polysaccharide Iron Complex (Ferrex-150) 150 mg PO DAILY [facility] Last Admin: 08/14/16 09:26 Dose: 150 mg Trazodone HCl (Desyrel) 25 mg PO HS PRN PRN Reason: Insomnia Zinc Sulfate (Zinc Sulfate 220 Mg Cap) 220 mg PO DAILY [facility] Last Admin: 08/14/16 09:25 Dose: 220 mg - Labs Labs: 08/14/16 06:10 08/14/16 06:10 PT 11.1 Seconds (9.9-11.8) 08/13/16 07:00 INR 1.03 (0.93-1.08) 08/13/16 07:00 APTT 33.9 Seconds (23.7-30.8) H 08/13/16 07:00 Attending/Attestation - Attestation I have personally seen and examined this patient.: Yes I have fully participated in the care of the patient.: Yes I have reviewed all pertinent clinical information, including history, physical exam and plan: Yes Notes (Text): 08/14/16 15:18 attending note; Patient seen and examined with the resident. Patient is a 51 year old female with past medical hsitory of CVA, DM type 2, hypertension, chronic osteomyelitis, PVD HCV, CKD and anemia Is admitted with left lower extremity osteomyelitis. on IV merem. acute on chronic kidney disease;creatinine is 2.2 today . Slowly Improving. renal failure; renal ultrasound without hydronephrosis. Has segundo catheter in place. ON Hco3 drip. Anemia; secondary to anemia of chronic disease. No active bleeding. Got 1 dose of Aranesp. continue by mouth iron. Got 4 units PRBC transfusion during hospitalization. hemoglobin is 8.7 today. type and cross match for 2 units done. Cardiology evaluation appreciated. Stress test is normal. Follow-up with cardiology tomorrow. case discussed with surgery Dr. Sanchez in detail. Adjustment disorder; psychiatric evaluation appreciated. hypertension; Started on Norvasc. diabetes; adjust insulin. patient follows up with ROSSANA capps at [place]. plan for left BKA tomorrow.
--- NOTE | 2016-08-14 12:51 | CP.PCM.PN ---
Subjective - Date & Time of Evaluation Date of Evaluation: 08/14/16 Time of Evaluation: 11:45 - Subjective Subjective: c/o pain, c/o anxiety Objective - Vital Signs/Intake and Output Vital Signs (last 24 hours): Temp Pulse Resp BP Pulse Ox 98.2 F 89 20 177/105 H 95 08/14/16 12:00 08/14/16 12:00 08/14/16 12:00 08/14/16 12:15 08/14/16 06:00 Intake and Output: 08/14/16 08/14/16 06:59 18:59 Intake Total 340 Output Total 1000 Balance -660 - Medications Medications: Current Medications Alprazolam (Xanax) 0.5 mg PO QID PRN; Protocol PRN Reason: Anxiety Last Admin: 08/10/16 10:27 Dose: 0.5 mg Amlodipine Besylate (Norvasc) 10 mg PO DAILY [facility] Last Admin: 08/14/16 09:26 Dose: 10 mg Ascorbic Acid (Vitamin C 500 Mg Tab) 500 mg PO BID [facility] Last Admin: 08/14/16 09:26 Dose: 500 mg Calcium Acetate (Phoslo) 667 mg PO WM [facility] Last Admin: 08/14/16 11:56 Dose: 667 mg Docusate Sodium (Colace) 100 mg PO BID [facility] Last Admin: 08/14/16 09:25 Dose: 100 mg Famotidine (Pepcid) 40 mg PO HS [facility] Last Admin: 08/13/16 21:53 Dose: 40 mg Heparin Sodium (Porcine) (Heparin) 5,000 units SC Q12 [facility] PRN Reason: Protocol Last Admin: 08/14/16 09:27 Dose: 5,000 units Hydralazine HCl (Apresoline) 10 mg IVP Q6H PRN PRN Reason: Systolic Blood Pressure Last Admin: 08/14/16 12:15 Dose: 10 mg Sodium Bicarbonate 75 meq/ (Sodium Chloride) 1,075 mls @ 80 mls/hr IV .[id number] [facility] Last Admin: 08/14/16 09:28 Dose: 80 mls/hr Meropenem 500 mg/ Sodium (Chloride) 100 mls @ 100 mls/hr IVPB DAILY [facility] PRN Reason: Protocol Stop: 08/15/16 10:01 Last Admin: 06/29/17 09:27 Dose: 100 mls/hr Insulin Detemir (Levemir) 10 unit SC DAILY [facility] Last Admin: 08/14/16 09:26 Dose: 10 unit Insulin Human Regular (Humulin R High) 0 units SC ACHS [facility] PRN Reason: Protocol Last Admin: 08/14/16 11:56 Dose: 2 units Oxycodone HCl (Oxycodone Immediate Release Tab) 15 mg PO Q6 PRN PRN Reason: Pain, moderate (4-7) Last Admin: 08/12/16 20:36 Dose: 15 mg Polyethylene Glycol (Miralax) 17 gm PO DAILY [facility] Last Admin: 08/14/16 09:27 Dose: Not Given Polysaccharide Iron Complex (Ferrex-150) 150 mg PO DAILY [facility] Last Admin: 08/14/16 09:26 Dose: 150 mg Trazodone HCl (Desyrel) 25 mg PO HS PRN PRN Reason: Insomnia Zinc Sulfate (Zinc Sulfate 220 Mg Cap) 220 mg PO DAILY [facility] Last Admin: 08/14/16 09:25 Dose: 220 mg - Labs Labs: 08/14/16 06:10 08/14/16 06:10 PT 11.1 Seconds (9.9-11.8) 08/13/16 07:00 INR 1.03 (0.93-1.08) 08/13/16 07:00 APTT 33.9 Seconds (23.7-30.8) H 08/13/16 07:00 - Constitutional Appears: Non-toxic, No Acute Distress - Head Exam Head Exam: ATRAUMATIC, NORMOCEPHALIC - Eye Exam Eye Exam: EOMI, Normal appearance Pupil Exam: PERRL - ENT Exam ENT Exam: Mucous Membranes Moist - Neck Exam Neck Exam: Normal Inspection - Respiratory Exam Respiratory Exam: Clear to Ausculation Bilateral - Cardiovascular Exam Cardiovascular Exam: REGULAR RHYTHM - GI/Abdominal Exam GI & Abdominal Exam: Distended, Normal Bowel Sounds - Rectal Exam Rectal Exam: Deferred - Extremities Exam Extremities Exam: Pedal Edema Additional comments: dressing of both heels Assessment and Plan (1) Osteomyelitis Assessment & Plan: con't Abx, scheduled for BKA Status: Acute (2) MADHURI (acute kidney injury) Assessment & Plan: resolving slowly Status: Acute (3) CKD (chronic kidney disease) stage 3, GFR 30-59 ml/min Assessment & Plan: underlying DN Status: Acute
[2016-08-15 00:11] VITALS: BP 179/93; RESP 19; TEMP 98.8; O2SAT 93
--- NOTE | 2016-08-15 01:17 | CP.PCM.PN ---
Subjective - Date & Time of Evaluation Date of Evaluation: 08/15/16 Time of Evaluation: 01:11 - Subjective Subjective: S: wanted to sign out AMA. she stated that she was going to [facility] from here. She is going to be admitted to another physician's service in [facility] and have her foot taken care of . She also said she is going to have another PICC line with double lumen inserted and wants this PICC line removed. O: Last Vital Signs 3 Temp 98.8 F 08/15/16 00:09 Pulse 93 H 08/15/16 00:09 Resp 19 08/15/16 00:09 BP 179/93 H 08/15/16 00:09 Pulse Ox 93 L 08/15/16 00:09 Alert , oriented. Not in distress. A:Leaving against medical advice. Elevated blood pressure reading. P:Hydralazine 50 mg PO stat. PICC line was removed from left antecubital region. Nurse Estuardo Lemons applied manual pressure for 15 minutes. Patient signed AMA form in prsence of Estuardo Lemons after I discussed with patient about consequences when mother and daughter interrupted me and told they were told lot about it by other staff. Objective - Vital Signs/Intake and Output Vital Signs (last 24 hours): Temp Pulse Resp BP Pulse Ox 98.8 F 93 H 19 179/93 H 93 L 08/15/16 00:09 08/15/16 00:09 08/15/16 00:09 08/15/16 00:09 08/15/16 00:09 - Medications Medications: Current Medications Alprazolam (Xanax) 0.5 mg PO QID PRN; Protocol PRN Reason: Anxiety Last Admin: 08/10/16 10:27 Dose: 0.5 mg Amlodipine Besylate (Norvasc) 10 mg PO DAILY [facility] Last Admin: 08/14/16 09:26 Dose: 10 mg Ascorbic Acid (Vitamin C 500 Mg Tab) 500 mg PO BID [facility] Last Admin: 08/14/16 18:27 Dose: 500 mg Calcium Acetate (Phoslo) 667 mg PO WM [facility] Last Admin: 08/14/16 18:27 Dose: 667 mg Docusate Sodium (Colace) 100 mg PO BID [facility] Last Admin: 08/14/16 18:27 Dose: 100 mg Famotidine (Pepcid) 40 mg PO HS [facility] Last Admin: 08/14/16 21:25 Dose: Not Given Heparin Sodium (Porcine) (Heparin) 5,000 units SC Q12 [facility] PRN Reason: Protocol Last Admin: 08/14/16 21:24 Dose: Not Given Hydralazine HCl (Apresoline) 10 mg IVP Q6H PRN PRN Reason: Systolic Blood Pressure Last Admin: 08/14/16 12:15 Dose: 10 mg Sodium Bicarbonate 75 meq/ (Sodium Chloride) 1,075 mls @ 80 mls/hr IV .[id number] [facility] Last Admin: 08/14/16 09:28 Dose: 80 mls/hr Meropenem 500 mg/ Sodium (Chloride) 100 mls @ 100 mls/hr IVPB DAILY [facility] PRN Reason: Protocol Stop: 08/15/16 10:01 Last Admin: 08/14/16 09:27 Dose: 100 mls/hr Insulin Detemir (Levemir) 10 unit SC DAILY [facility] Last Admin: 08/14/16 09:26 Dose: 10 unit Insulin Human Regular (Humulin R High) 0 units SC ACHS [facility] PRN Reason: Protocol Last Admin: 08/14/16 22:18 Dose: Not Given Oxycodone HCl (Oxycodone Immediate Release Tab) 15 mg PO Q6 PRN PRN Reason: Pain, moderate (4-7) Last Admin: 08/12/16 20:36 Dose: 15 mg Polyethylene Glycol (Miralax) 17 gm PO DAILY [facility] Last Admin: 08/14/16 09:27 Dose: Not Given Polysaccharide Iron Complex (Ferrex-150) 150 mg PO DAILY [facility] Last Admin: 08/14/16 09:26 Dose: 150 mg Trazodone HCl (Desyrel) 25 mg PO HS PRN PRN Reason: Insomnia Zinc Sulfate (Zinc Sulfate 220 Mg Cap) 220 mg PO DAILY [facility] Last Admin: 08/14/16 09:25 Dose: 220 mg - Labs Labs: 08/14/16 06:10 08/14/16 06:10 PT 11.1 Seconds (9.9-11.8) 08/13/16 07:00 INR 1.03 (0.93-1.08) 08/13/16 07:00 APTT 33.9 Seconds (23.7-30.8) H 08/13/16 07:00
[2016-08-15 01:52] VITALS: PULSE 97
--- NOTE | 2016-09-11 14:59 | CP.PCM.DIS ---
Provider - Provider Date of Admission: 08/04/16 21:16 Attending physician: Dagmar Celis MD Primary care physician: Terence Villarreal MD Time Spent in preparation of Discharge (in minutes): 35 Hospital Course - Lab Results Lab Results: Micro Results 08/06/16 17:15 Urine,Clean Catch Urine Culture - Final Yeast Species 08/04/16 23:50 Urine Urine Culture - Final Yeast Species Most Recent Lab Values WBC 11.6 10^3/ul (4.5-11.0) H 08/14/16 06:10 RBC 3.29 10^6/uL (3.5-6.1) L 08/14/16 06:10 Hgb 8.7 gm/dL (12.0-16.0) L 08/14/16 06:10 Hct 28.8 % (36.0-48.0) L 08/14/16 06:10 MCV 87.5 fL (80.0-105.0) 08/14/16 06:10 MCH 26.4 pg (25.0-35.0) 08/14/16 06:10 MCHC 30.2 g/dl (31.0-37.0) L 08/14/16 06:10 RDW 15.5 % (11.5-14.5) H 08/14/16 06:10 Plt Count 259 10^3/uL (120.0-450.0) 08/14/16 06:10 MPV 9.6 fl (7.0-11.0) 08/14/16 06:10 Gran % 73.6 % (50.0-68.0) H 08/14/16 06:10 Lymph % (Auto) 17.7 % (22.0-35.0) L 08/14/16 06:10 [place] % (Auto) 5.1 % (1.0-6.0) 08/14/16 06:10 Eos % (Auto) 3.4 % (1.5-5.0) 08/14/16 06:10 Baso % (Auto) 0.2 % (0.0-3.0) 08/14/16 06:10 Gran # 8.50 (1.4-6.5) H 08/14/16 06:10 Lymph # 2.1 (1.2-3.4) 08/14/16 06:10 [place] # 0.6 (0.1-0.6) 08/14/16 06:10 Eos # 0.4 (0.0-0.7) 08/14/16 06:10 Baso # 0.02 K/mm3 (0.0-2.0) 08/14/16 06:10 ESR 74 mm/hr (0.0-20.0) H 08/05/16 07:30 Retic Count 1.19 % (0.5-1.5) 08/05/16 07:00 PT 11.1 Seconds (9.9-11.8) 08/13/16 07:00 INR 1.03 (0.93-1.08) 08/13/16 07:00 APTT 33.9 Seconds (23.7-30.8) H 08/13/16 07:00 pO2 212 mm/Hg (30-55) H 08/04/16 23:30 VBG pH 7.20 (7.32-7.43) L 08/04/16 23:30 VBG pCO2 35.0 (40-60) L 08/04/16 23:30 VBG HCO3 13.7 mmol/l (21-28) L 08/04/16 23:30 VBG Total CO2 14.8 mmol.L (22-28) L 08/04/16 23:30 VBG O2 Sat (Calc) 99.3 % (40-65) H 08/04/16 23:30 VBG Base Excess -13.4 mmol/L (0.0-2.0) L 08/04/16 23:30 VBG Potassium 3.0 mmol/L (3.6-5.2) L 08/04/16 23:30 Sodium 133.0 mmol/L (132-148) 08/04/16 23:30 Chloride 111.0 mmol/L (98-107) H 08/04/16 23:30 Glucose 275 mg/dl (65-105) H 08/04/16 23:30 Lactate 0.7 mmol/L (0.7-2.1) 08/04/16 23:30 FiO2 21.0 % 08/04/16 23:30 Sodium 139 mmol/L (132-148) 08/14/16 06:10 Potassium 3.6 mmol/L (3.6-5.0) 08/14/16 06:10 Chloride 107 mmol/L (98-107) 08/14/16 06:10 Carbon Dioxide 26 mmol/L (21-33) 08/14/16 06:10 Anion Gap 10 (10-20) 08/14/16 06:10 BUN 42 mg/dL (7-21) H 08/14/16 06:10 Creatinine 2.2 mg/dL (0.5-1.4) H 08/14/16 06:10 Est GFR ( Amer) 08/14/16 06:10 Est GFR (Non-Af Amer) 08/14/16 06:10 POC Glucose (mg/dL) 195 mg/dL (65-110) H 08/14/16 21:22 Random Glucose 108 mg/dL (70-110) 08/14/16 06:10 Hemoglobin A1c 8.7 % (4.2-6.5) H 08/04/16 20:00 Serum Osmolality 292 mosm/kg (271-296) 08/04/16 21:18 Calcium 8.2 mg/dL (8.4-10.5) L 08/14/16 06:10 Phosphorus 5.5 mg/dL (2.5-4.5) H 08/11/16 06:01 Magnesium 1.9 mg/dL (1.7-2.2) 08/11/16 06:01 Iron 21 ug/dL (45-180) L 08/07/16 05:45 TIBC 126 ug/dL (265-497) L 08/07/16 05:45 % Saturation 17 % (20-55) L 08/07/16 05:45 Ferritin 941.0 ng/mL 08/07/16 05:45 Total Bilirubin 0.2 mg/dL (0.2-1.3) 08/14/16 06:10 AST 31 U/L (15-39) 08/14/16 06:10 ALT 29 U/L (7-56) 08/14/16 06:10 Alkaline Phosphatase 255 U/L (38-133) H 08/14/16 06:10 Total Creatine Kinase < 20 U/L (35-230) L 08/05/16 07:30 C-React Prot High Sens > 15.00 mg/L (1.00-3.00) H 08/05/16 07:30 Total Protein 6.1 g/dL (5.8-8.3) 08/14/16 06:10 Albumin 2.5 g/dL (3.0-4.8) L 08/14/16 06:10 Globulin 3.6 gm/dL 08/14/16 06:10 Albumin/Globulin Ratio 0.7 (1.1-1.8) L 08/14/16 06:10 Vitamin B12 985 pg/mL (239-931) H 08/05/16 07:30 Folate 14.5 ng/mL 08/05/16 07:30 Procalcitonin 12.14 NG/ML (0.19-0.49) H 08/05/16 07:00 Venous Blood Potassium 3.0 mmol/L (3.6-5.2) L 08/04/16 23:30 Urine Color Yellow (YELLOW) 08/04/16 23:50 Urine Appearance Sl cloudy (CLEAR) 08/04/16 23:50 Urine pH 6.0 (4.7-8.0) 08/04/16 23:50 Ur Specific [place] 1.020 (1.005-1.035) 08/04/16 23:50 Urine Protein >=300 mg/dL (<30 mg/dL) H 08/04/16 23:50 Urine Glucose (UA) 250 mg/dL (NEGATIVE) H 08/04/16 23:50 Urine Ketones Negative mg/dL (NEGATIVE) 08/04/16 23:50 Urine Blood Moderate (NEGATIVE) H 08/04/16 23:50 Urine Nitrate Negative (NEGATIVE) 08/04/16 23:50 Urine Bilirubin Negative (NEGATIVE) 08/04/16 23:50 Urine Urobilinogen 0.2 E.U./dL (<1 E.U./dL) 08/04/16 23:50 Ur Leukocyte Esterase Moderate Ke/uL (NEGATIVE) H 08/04/16 23:50 Urine RBC 5 - 10 /hpf (0-2) 08/04/16 23:50 Urine WBC Tntc /hpf (0-6) 08/04/16 23:50 Ur Epithelial Cells 1 - 3 /hpf (0-5) 08/04/16 23:50 Urine Bacteria Small (NEG) 08/04/16 23:50 Urine Other Uyeast 08/04/16 23:50 Urine Eosinophils Negative 08/06/16 17:15 Urine Osmolality 305 mosm/kg (50-645) 08/04/16 23:50 Ur Random Creatinine 110 mg/dL 08/04/16 23:50 U Random Total Protein 6136 mg/L (50-240) H 08/07/16 21:47 Ur Random Sodium 29 meq/L 08/04/16 23:50 Urine Collection Time 24 HOURS 08/07/16 21:47 Urine Total Volume 725 mL (800-1400) L 08/07/16 21:47 Creatinine Clearance 9.0 ml/min (80-120) L 08/07/16 21:47 Ur Total Protein 24 Hr 4418 mg/24 h (<150) H 08/07/16 21:47 Ur Protein 24 Hr Calc 3872 mg/24HR (42-225) H 08/07/16 21:47 HCV RNA Qual (TMA) Not detected 08/05/16 07:00 Blood Type O POSITIVE 08/14/16 12:20 Antibody Screen Negative 08/14/16 12:20 Crossmatch See Detail 08/14/16 12:20 BBK History Checked Patient has bt 08/14/16 12:20 - Hospital Course Hospital Course: Discharge summary for 08/15/16. attending note; Patient seen and examined with the resident. Patient is a 51 year old female with past medical hsitory of CVA, DM type 2, hypertension, chronic osteomyelitis, PVD HCV, CKD and anemia Is admitted with left lower extremity osteomyelitis. Treated with IV merem. acute on chronic kidney disease;creatinine is 2.2. Slowly Improving. renal failure; renal ultrasound without hydronephrosis. Has segundo catheter in place. Treated with Hco3 drip. Anemia; secondary to anemia of chronic disease. No active bleeding. Got 1 dose of Aranesp and po iron. Got 4 units PRBC transfusion during hospitalization. type and cross match for 2 units done. Cardiology evaluation appreciated. Stress test is normal. case discussed with surgery Dr. Sanchez in detail. Adjustment disorder; psychiatric evaluation appreciated. hypertension; Started on Norvasc. diabetes; adjust insulin. patient follows up with ROSSANA villarreal at [facility]. plan for left BKA on 08/15/16. patient signed AGAINST medical advice. Picc line and segundo removed by Madi ALTMAN. Diagnosis; Chronic osteomyelitis left lower extremity History of CVA Diabetes Hypertension Chronic kidney disease Anemia noncompliance Signed AMA. Discharge Exam - Head Exam Head Exam: ATRAUMATIC, NORMOCEPHALIC Discharge Plan - Follow Up Plan Condition: GUARDED Disposition: AGAINST MEDICAL ADVICE Referrals: Terence Villarreal MD [Primary Care Provider] -
== END 2016-08-15 02:43 | disposition left against medical advice (07) | DRG 584 ==
LOC: ED 18:22 → ERH 21:16 → 2RNO 08-05 21:42
PROVIDERS: ADMIT Internal Medicine; ATTEND Internal Medicine
PROC: 02HV33Z Insertion of Infusion Device into Superior Vena Cava, Percutaneous Approach (ICD-10-PCS; principal; 2016-08-05)
PROC: B518ZZA Fluoroscopy of Superior Vena Cava, Guidance (ICD-10-PCS; 2016-08-05)
PROC: B54NZZA Ultrasonography of Left Upper Extremity Veins, Guidance (ICD-10-PCS; 2016-08-05)
DX: A41.9 Sepsis, unspecified organism (principal); N17.0 Acute kidney failure with tubular necrosis; E87.2 Acidosis; E11.21 Type 2 diabetes mellitus with diabetic nephropathy; N18.4 Chronic kidney disease, stage 4 (severe); I48.0 Paroxysmal atrial fibrillation; E11.51 Type 2 diabetes mellitus with diabetic peripheral angiopathy without gangrene; E11.22 Type 2 diabetes mellitus with diabetic chronic kidney disease; E11.69 Type 2 diabetes mellitus with other specified complication; E11.621 Type 2 diabetes mellitus with foot ulcer; E87.1 Hypo-osmolality and hyponatremia; N12 Tubulo-interstitial nephritis, not specified as acute or chronic; L03.119 Cellulitis of unspecified part of limb; L97.419 Non-pressure chronic ulcer of right heel and midfoot with unspecified severity; L97.429 Non-pressure chronic ulcer of left heel and midfoot with unspecified severity; L97.529 Non-pressure chronic ulcer of other part of left foot with unspecified severity; F06.30 Mood disorder due to known physiological condition, unspecified; B19.20 Unspecified viral hepatitis C without hepatic coma; D63.1 Anemia in chronic kidney disease; E83.42 Hypomagnesemia; F17.210 Nicotine dependence, cigarettes, uncomplicated; F41.9 Anxiety disorder, unspecified; I12.9 Hypertensive chronic kidney disease with stage 1 through stage 4 chronic kidney disease, or unspecified chronic kidney disease; I25.10 Atherosclerotic heart disease of native coronary artery without angina pectoris; I48.2 Chronic atrial fibrillation; Z86.73 Personal history of transient ischemic attack (TIA), and cerebral infarction without residual deficits; Z86.14 Personal history of Methicillin resistant Staphylococcus aureus infection; Z89.512 Acquired absence of left leg below knee; Z90.49 Acquired absence of other specified parts of digestive tract; Z79.899 Other long term (current) drug therapy; Z79.4 Long term (current) use of insulin; Z79.01 Long term (current) use of anticoagulants; T38.0X5A Adverse effect of glucocorticoids and synthetic analogues, initial encounter; N25.81 Secondary hyperparathyroidism of renal origin; M86.8X7 Other osteomyelitis, ankle and foot; K59.00 Constipation, unspecified; R26.81 Unsteadiness on feet; Z87.892 Personal history of anaphylaxis; Z88.6 Allergy status to analgesic agent; Z88.1 Allergy status to other antibiotic agents; Z88.5 Allergy status to narcotic agent; Z91.018 Allergy to other foods; Z91.010 Allergy to peanuts; Z88.0 Allergy status to penicillin; Z91.013 Allergy to seafood; Z88.8 Allergy status to other drugs, medicaments and biological substances; G47.00 Insomnia, unspecified; Z87.19 Personal history of other diseases of the digestive system; Z91.19 Patient's noncompliance with other medical treatment and regimen; Z53.8 Procedure and treatment not carried out for other reasons; M86.68 Other chronic osteomyelitis, other site; I73.9 Peripheral vascular disease, unspecified; F43.20 Adjustment disorder, unspecified

== ENCOUNTER 2018-04-06 16:05 | Outpatient (CLI) | payer MEDICAID | END 2018-04-06 16:06 | disposition home or self-care (01) | LOC: RAD 16:05 ==

== ENCOUNTER 2018-06-01 12:59 | Outpatient (CLI) | payer MEDICAID | END 2018-06-01 13:00 | disposition home or self-care (01) | LOC: RAD 12:59 ==